=== PATIENT | female | born 1970 | race Caucasian/White ===

== ENCOUNTER 2020-10-31 16:54 | Inpatient (IN) | payer OTHER ==
--- OUTSIDE RECORDS SUMMARY | 2020-10-31 16:56 | XMS REPORT | Continuity of Care Document ---
:1970 Author Organization [facility] t Address [address] [place] [address] Care Team Providers Name Role Phone Doctor Unassigned, Name Attending Clinician Unavailable Payers Payer Name Policy Type Policy Number Effective Date Expiration Date S ource Problems This patient has no known problems. Allergies, Adverse Reactions, Alerts Allergy Allergy Status Severity Reaction(s) Onset Inactive Treating Comm ents Source Name Type Date Date Clinician No Known DA Active [facility] [place] [facility] No Known DA Active U 2012-0 [facility] 05-06 [place] [facility] Medications This patient has no known medications. Procedures This patient has no known procedures. Encounters Start End Encounter Admission Attending Care Care Encounter Source Date/Time Date/Time Type Type Clinicians Facility Department ID 2020-09-25 2020-09-25 Orders Doctor TORREZ [id number] 01 00:00:00 00:00:00 Only UnassignedRADHA [id number] Tulsita [facility] [id number] 2020-05-07 2020-05-07 Gaye [id number] 30 00:00:00 00:00:00 Only UnassignedRADHA [id number] [id number] Results Test Description Test Time Test Comments Results Result [facility] e Comments - XR FLUORO NDL 2018-08-21 Patient Name: 22:30:00 CECI NI Unit No: [id number] EXAMS: CPT CODE: [id number] XR FLUORO NDL 63788 FLUOROSCOPICALLY GUIDED LEFT SHOULDER INTRA-ARTICULAR STEROID INJECTION Comment: COMPARISON: No prior exams available. After informed consent was obtained a 25-gauge needle is inserted into the left shoulder joint under fluoroscopic control using sterile technique. 2 mL of Isovue-300 is instilled into the joint followed by 2 mL of Kenalog 40 mg/ml and 2 mL of lidocaine. The patient tolerated the procedure well. 0.5 minutes of fluoroscopy time was used on this exam. at 2230 Reported and signed by: Shelby Bradley MD CC: Flavio Torres MD Technologist: Oumou Bailey, RT.(R); NORMA WALLER RT(R) Transcribed D/ (2229) Jose RaulGVG [facility] NAME: CECI NI [address] [facility] PHYS: Flavio Connell MD : 1970 AGE: 47 SEX: F [place] [id number] LOC: Y.RAD PHONE #: [phone] EXAM DATE: 08/19/2018 STATUS: DEP CLI FAX #: [phone] RAD #: D/C DT PAGE 1 Signed Report Patient Name: CECI NI Unit No: [id number] EXAMS: CPT CODE: [id number] XR FLUORO NDL 32875 <Continued> Orig Print D/T: S: 08/21/2018 (702) [facility] NAME: CECI NI [address] [facility] PHYS: Flavio Connell MD : 1970 AGE: 47 SEX: F [place] [id number] LOC: Y.RAD PHONE #: [phone] EXAM DATE: 08/19/2018 STATUS: DEP CLI FAX #: [phone] RAD #: D/C DT PAGE 2 Signed Report
--- NOTE | 2020-10-31 18:03 | RAD REPORT ---
EXAM DESCRIPTION: RAD - Chest Single View - 10/31/2020 5:42 pm CLINICAL HISTORY: CHEST PAIN COMPARISON: Portable December 2016 TECHNIQUE: AP portable chest image was obtained 10/31/2020 5:42 pm . FINDINGS: Lungs are clear. Heart and vasculature are normal. No measurable pleural effusion and no p neumothorax. No acute bony abnormality seen. No acute aortic findings suspected. IMPRESSION: No acute cardiopulmonary process. No significant change from comparison study.
[2020-10-31 18:07] LABS: Absolute Lymphocytes (CBC) 0.4 K/uL (0.7-4.9); Basophils % 0.2 % (0-1.3); Hematocrit 30.1 % (36.0-45.0); Lymphocytes % 3.4 % (15.3-44.8); RBC Red Blood Cell Count 2.97 M/uL (3.86-4.86)
[2020-10-31] MEDS ORDERED: ACETAMINOPHEN 500 MG TAB ONE (18:15)
[2020-10-31] MEDS ORDERED: MAGNES/ALUMIN/SIMET 30ML UCUP ONE (18:15)
[2020-10-31] MEDS ORDERED: NA CHLORIDE 0.9% 2,000 ML ONE (18:16)
[2020-10-31] MEDS ORDERED: LIDOCAINE VISCOUS 2% SOLN 15 ML UDC ONE (18:16)
[2020-10-31 18:19] LABS: Protime INR 1.09
[2020-10-31 18:32] LABS: ALT/SGPT 702 U/L (12-78); Albumin 2.7 g/dL (3.4-5.0); Alkaline Phosphatase 149 U/L (45-117); Amylase 39 U/L (25-115); BUN Blood Urea Nitrogen 22 mg/dL (7-18); Bicarbonate 21 mmol/L (21-32); Bilirubin Direct 0.1 mg/dL (0-0.2); Bilirubin Total 0.3 mg/dL (0.2-1.0); CKMB Creatine Kinase MB < 1.0 ng/mL (1.0-3.6); Creatine Phosphokinase 56 U/L (26-192); Glucose Level 148 mg/dL (74-106); Lipase 31 U/L (73-393); Magnesium 1.9 mg/dL (1.8-2.4); NT PRO-BNP 1911 pg/mL (<125); Potassium 3.4 mmol/L (3.5-5.1); Protein, Total 6.2 g/dL (6.4-8.2); Sodium Level 138 mmol/L (136-145); Troponin (Emerg Dept Use Only) < 0.02 ng/mL (0.0-0.045)
[2020-10-31 18:36] LABS: AST/SGOT 907 U/L (15-37)
--- NOTE | 2020-10-31 19:39 | RAD REPORT ---
EXAM DESCRIPTION: CT - Chest Abdomen Pelvis W Cont - 10/31/2020 6:59 pm CLINICAL HISTORY: LFTs abnormal;Fever COMPARISON: No comparisons TECHNIQUE: Following dynamic enhancement using 100 milliliters nonionic IV contrast, axial imaging o f the chest, abdomen and pelvis was performed. Biphasic technique was utilized through the abdomen. No oral contrast administered. All CT scans are performed using dose optimization technique as appropriate and may include automated exposure control or mA/KV adjustment according to patient size. FINDINGS: Lungs are clear of mass and infiltrate. No pleural effusion, pleural thickening or pneumot horax. No significant aortic or pulmonary arterial tree finding. Mediastinal and hilar regions show n o mass or abnormal lymphadenopathy. No chest wall mass or axillary lymphadenopathy. The liver, spleen and pancreas show no suspicious findings. Gallbladder is mostly contracted. No acut e gallbladder finding seen. No biliary tree dilatation. Gallstones can be occult on CT imaging. No hydronephrosis or obstructing calculus. There is heterogeneous enhancement of the left renal paren chyma consistent with pyelonephritis. There is slight thickening and enhancement of the left ureter. No adrenal abnormalities. Urinary bladder is contracted which accentuates the wall thickness. This li mits ability to evaluate for cystitis. No gastric dilatation or gastric wall thickening. Multiple fluid-filled small bowel loops are present . Patient has a very large retained stool volume distending the entirety of the colon. The colon is t ortuous and redundant with the transverse colon low-lying along the pelvic floor. Appendix is not josiah isabel defined. Acute appendicitis is not suspected. No acute or destructive bony process. No significant vascular findings. IMPRESSION: Left-sided pyelonephritis and ureteritis. No abscess or other complicating factor. Urinary bladder is too contracted to allow all accurate assessment of possible cystitis. Constipation pattern with a large amount of stool filling and distending the entirety of the colon.
[2020-10-31] MEDS ORDERED: CEFEPIME/SWI 1gm 10 ML ONE (19:43)
[2020-10-31 19:44] LABS: Urine Bacteria 20-50 /HPF (<20); Urine Mucus 2+ /HPF (NONE SEEN)
[2020-10-31 20:08] LABS: Blood Morphology Comment NOT SEEN (NOT SEEN); Platelet Estimate ADEQ; White Blood Cell Scan OK (OK)
--- NOTE | 2020-10-31 20:25 | ER ---
Nurse's Notes [facility] Name: Cindy Lizarraga Age: 50 yrs Sex: Female : 1970 Arrival Date: 10/31/2020 Time: 17:02 Bed 3 Private MD: Diagnosis: Sepsis;Pyelonephritis;Dehydration Presentation: 10/31 17:02 Chief complaint: EMS states: Generalized weakness since yesterday, reports epigastric jl7 pain since yesterday, denies SOB, cough, denies N/V/D, denies burning with urination. Coronavirus screen: Client denies travel out of the [place] in the last 14 days. At this time, the client does not indicate any symptoms associated with coronavirus-19. Ebola Screen: No symptoms or risks identified at this time. Initial Sepsis Screen: Does the patient meet any 2 criteria? RR > 20 per min. Systolic BP < 90 mmHg. HR > 90 bpm. Yes Does the patient have a suspected source of infection? No. Patient's initial sepsis screen is negative. Risk Assessment: Do you want to hurt yourself or someone else? Patient reports no desire to harm self or others. Onset of symptoms was October 30, 2020. Care prior to arrival: Glucose check: 125. 17:02 Method Of Arrival: EMS: [facility] jl7 17:02 Acuity: RAQUEL 2 jl7 Triage Assessment: 17:05 General: Appears in no apparent distress. uncomfortable, Behavior is calm, cooperative, jl7 appropriate for age. Pain: Complains of pain in xiphoid area Pain radiates to mid-sternal area Pain currently is 9 out of 10 on a pain scale. Quality of pain is described as squeezing, Pain began 1 day ago. Is continuous. Neuro: Level of Consciousness is awake, alert, obeys commands, Oriented to person, place, time, situation. Cardiovascular: Patient's skin is warm and dry. Respiratory: Airway is patent Respiratory effort is even, unlabored, Respiratory pattern is regular, symmetrical. Derm: Skin is dry, Skin is pale, Skin temperature is warm. 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 - Social history:: Smoking status: Patient denies any tobacco usage or history of. Screenin:30 Abuse screen: Denies threats or abuse. Denies injuries from another. Nutritional jl7 screening: No deficits noted. Tuberculosis screening: No symptoms or risk factors identified. Fall Risk IV access (20 points). Gait- Weak (10 pts.). Mental Status- Oriented to own ability (0 pts). Total Bardales Fall Scale indicates Low Risk Score (25-44 pts). Fall prevention measures have been instituted. Side Rails Up X 2 Placed close to Nursing Station Frequent Obs/Assesments occuring Family Present and informed to notify staff if they need to leave bedside As available Patient and Family Educated on Fall Prevention Program and strategies. Assessment: 17:05 General: See triage assessment. jl7 18:00 Reassessment: Patient appears in no apparent distress at this time. No changes from jl7 previously documented assessment. Patient and/or family updated on plan of care and expected duration. Pain level reassessed. Patient is alert, oriented x 3, equal unlabored respirations, skin warm/dry/pink. 19:22 Reassessment: Patient appears in no apparent distress at this time. Patient and/or ad5 family updated on plan of care and expected duration. Pain level reassessed. Neuro: Level of Consciousness is awake, alert, obeys commands, Oriented to person, place, time, situation, Appropriate for age. Cardiovascular: No deficits noted. Capillary refill < 3 seconds Patient's skin is warm and dry. appears pale. Respiratory: No deficits noted. Airway is patent Respiratory effort is even, unlabored, Respiratory pattern is regular, symmetrical. 20:30 Reassessment: Patient appears in no apparent distress at this time. No changes from ad5 previously documented assessment. Patient and/or family updated on plan of care and expected duration. Pain level reassessed. 21:30 Reassessment: Pt assisted on and off of bedpan, repositioned back into stretcher for ad5 comfort. Pt family remains at bedside. Pt given food and po liquids per request. Denies other needs or c/o at this time. NAD noted, will continue to monitor. Vital Signs: 17:02 BP 87 / 53; Pulse 100; Resp 23; Temp 100.4; Pulse Ox 100% ; Weight 57.15 kg; Height 5 bb ft. 2 in. (157.48 cm) (R); Pain 8/10; 18:07 BP 86 / 53; Pulse 99; Resp 15; Pulse Ox 100% ; jl7 19:18 BP 98 / 64; Pulse 102; Resp 19 S; Pulse Ox 99% on R/A; ad5 21:11 BP 99 / 62; Pulse 96; Resp 20 S; Pulse Ox 97% on R/A; ad5 17:02 Body Mass Index 23.04 (57.15 kg, 157.48 cm) bb ED Course: 17:02 Patient arrived in ED. jl7 17:03 Mihir Eubanks MD is Attending Physician. kdr 17:05 Arm band placed on right wrist. jl7 17:05 Patient has correct armband on for positive identification. Placed in gown. Bed in low jl7 position. Call light in reach. Side rails up X2. vet assistant on. Pulse ox on. NIBP on. 17:07 Triage completed. jl7 17:35 Initial lab(s) drawn, by ia, sent to lab. First set of blood cultures drawn by me. jl7 17:35 Missed attempt(s): 22 gauge in left forearm. jl7 17:42 XRAY Chest (1 view) In Process Unspecified. EDMS 17:48 Inserted saline lock: 22 gauge in right forearm, using aseptic technique. Blood jl7 collected. 17:48 Second set of blood cultures drawn by me. jl7 18:03 Matthieu Connolly, YA is Primary Nurse. jl7 18:59 CT Chest, Abdomen, Pelvis - W/Contrast In Process Unspecified. EDMS 19:02 Attending Physician role handed off by Mihir Eubanks MD 7 19:02 Kevin Diaz MD is Attending Physician. 7 20:24 Cesia Vargas MD is Hospitalizing Provider. 7 22:01 No provider procedures requiring assistance completed. Patient admitted, IV remains in ea place. 11/01 06:21 Primary Nurse role handed off by Matthieu Connolly RN tt3 09:44 Sahra Tripathi, RN is Primary Nurse. kg Administered Medications: 10/31 18:08 Drug: NS 0.9% (30 ml/kg) 30 ml/kg Route: IV; Rate: bolus; Site: right forearm; jl7 21:10 Follow up: IV Status: Completed infusion ad5 18:10 Drug: Tylenol 1000 mg Route: PO; jl7 19:30 Follow up: Response: No adverse reaction ea 19:40 Drug: Cefepime 1 grams Route: IVPB; Rate: 200 ml/hr; Infused Over: 30 mins; Site: right ad5 forearm; 20:34 Follow up: Response: No adverse reaction; IV Status: Completed infusion; IV Intake: ad5 1700ml 20:53 Drug: NS 0.9% 1000 ml Route: IV; Rate: 1000 ml; Site: right forearm; ea Intake: 20:34 IV: 1700ml; Total: 1700ml. ad5 Outcome: 20:24 Decision to Hospitalize by Provider. [facility] 22:02 Admitted to [facility] Hold. [facility] ea 22:02 Condition: stable 22:02 Instructed on the need for admit, Demonstrated understanding of instructions. 11/01 14:12 Patient left the ED. kg Signatures: Dispatcher [employer] EDMS Mihir Eubanks MD MD kdr Ballard, Brenda, RN RN bb Leal, Jahala, RN RN jl7 Antunez, Elena, RN RN ea Holmes, Maurice, MD MD [facility] Jorge Moran tt3 Sahra Tripathi RN RN kg Filipe Chisholm ad5 Corrections: (The following items were deleted from the chart) 10/31 18:07 17:05 Inserted saline lock: 22 gauge in right forearm, using aseptic technique. Blood Evie collected. Evie 18: 17:05 Initial lab(s) drawn, by ia, sent to lab. nelida jlEvie 22:25 17:02 BP 87 / 53; Pulse 100bpm; Resp 23bpm; Pulse Ox 100%; Temp 100.4F; 57.15 kg; Pain bb 810; jlEvie
--- NOTE | 2020-10-31 20:25 | EDPHYS ---
Physician Documentation [facility] Name: Cindy Lizarraga Age: 50 yrs Sex: Female : 1970 Arrival Date: 10/31/2020 Time: 17:02 Bed 3 Private MD: ED Physician Kevin Diaz HPI: 10/31 18:19 This 50 yrs old Female presents to ER via EMS with complaints of General kdr Weakness. 18:19 The patient had shaking chills several times yesterday and today. This was accompanied kdr by generalized weakness and several times, the patient was eased to the floor due to weakness. She now c/o ESCOBEDO and pain epigastric chest pain which was partially relieved by Pepto-Bismal ASSISTANT SURVEYOR. She has not had this before and states that her pain on admission is 8-9/10 both ESCOBEDO and chest pain. CP is sub xyphoid and ESCOBEDO is frontal. 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 - Social history:: Smoking status: Patient denies any tobacco usage or history of. ROS: 19:49 Eyes: Negative for injury, pain, redness, and discharge, ENT: Negative for injury, mh7 pain, and discharge, Neck: Negative for injury, pain, and swelling, Respiratory: Negative for shortness of breath, cough, wheezing, and pleuritic chest pain. 19:50 : Negative for injury, bleeding, discharge, and swelling, MS/Extremity: Negative for mh7 injury and deformity, Skin: Negative for injury, rash, and discoloration, Psych: Negative for depression, anxiety, suicide ideation, homicidal ideation, and hallucinations, Allergy/Immunology: Negative for hives, rash, and allergies, Endocrine: Negative for neck swelling, polydipsia, polyuria, polyphagia, and marked weight changes, Hematologic/Lymphatic: Negative for swollen nodes, abnormal bleeding, and unusual bruising. 19:50 Back: Positive for flank pain, on the left. Exam: 19:50 Head/Face: Normocephalic, atraumatic. mh7 19:50 Neck: Trachea midline, no thyromegaly or masses palpated, and no cervical lymphadenopathy. Supple, full range of motion without nuchal rigidity, or vertebral point tenderness. No Meningismus. Chest/axilla: Normal chest wall appearance and motion. Nontender with no deformity. No lesions are appreciated. Cardiovascular: Regular rate and rhythm with a normal S1 and S2. No gallops, murmurs, or rubs. Normal PMI, no JVD. No pulse deficits. Respiratory: Lungs have equal breath sounds bilaterally, clear to auscultation and percussion. No rales, rhonchi or wheezes noted. No increased work of breathing, no retractions or nasal flaring. Abdomen/GI: Soft, non-tender, with normal bowel sounds. No distension or tympany. No guarding or rebound. No evidence of tenderness throughout. 19:50 Skin: Warm, dry with normal turgor. Normal color with no rashes, no lesions, and no evidence of cellulitis. MS/ Extremity: Pulses equal, no cyanosis. Neurovascular intact. Full, normal range of motion. Psych: Awake, alert, with orientation to person, place and time. Behavior, mood, and affect are within normal limits. 19:50 Constitutional: The patient appears in no acute distress, alert, awake, obviously ill. 19:50 Eyes: Periorbital structures: appear normal, Pupils: equal, round, and reactive to light and accomodation, Extraocular movements: intact throughout, Conjunctiva: pale, bilaterally, Sclera: no appreciated abnormality. 19:50 Back: ROM is normal, normal spinal alignment noted, CVA tenderness, that is moderate, is noted on the left, vertebral tenderness, is not appreciated, muscle spasm, is not present. 19:50 Neuro: Orientation: is normal, Mentation: is normal, Memory: is normal, immediate memory is intact, recent memory is intact, remote memory is intact, Cranial nerves: grossly normal, Cerebellar function: is grossly normal, Motor: is normal, Sensation: is normal, Gait: not tested. seizure activity, is not displayed by the patient, Abnormal movements: there are no abnormal movements. Vital Signs: 17:02 BP 87 / 53; Pulse 100; Resp 23; Temp 100.4; Pulse Ox 100% ; Weight 57.15 kg; Height 5 bb ft. 2 in. (157.48 cm) (R); Pain 8/10; 18:07 BP 86 / 53; Pulse 99; Resp 15; Pulse Ox 100% ; jl7 19:18 BP 98 / 64; Pulse 102; Resp 19 S; Pulse Ox 99% on R/A; ad5 21:11 BP 99 / 62; Pulse 96; Resp 20 S; Pulse Ox 97% on R/A; ad5 17:02 Body Mass Index 23.04 (57.15 kg, 157.48 cm) bb MDM: 20:23 Differential Diagnosis altered mental status, sepsis, flu. Data reviewed: vital signs, [facility] nurses notes, lab test result(s), cardiac enzymes, CBC, electrolytes, EKG, radiologic studies, CT scan, plain films. Data interpreted: Pulse oximetry: on room air is 99 %. Interpretation: normal. Counseling: I had a detailed discussion with the patient and/or guardian regarding: the historical points, exam findings, and any diagnostic results supporting the discharge/admit diagnosis, lab results, radiology results, the need for outpatient follow up, the need for further work-up and treatment in the hospital. Response to treatment: the patient's symptoms have markedly improved after treatment. 20:24 Patient medically screened. [facility] 10/31 17:03 Order name: Basic Metabolic Panel [facility] 10/31 17:03 Order name: CBC with Diff kdr 10/31 17:03 Order name: LFT's kdr 10/31 17:03 Order name: Magnesium; Complete Time: 18:39 kdr 10/31 17:03 Order name: NT PRO-BNP; Complete Time: 18:39 kdr 10/31 17:03 Order name: PT-INR; Complete Time: 18:39 kdr 10/31 17:03 Order name: Troponin (emerg Dept Use Only); Complete Time: 18:39 kdr 10/31 17:04 Order name: Basic Metabolic Panel; Complete Time: 18:39 EDMS 10/31 17:04 Order name: CBC with Automated Diff EDMS 10/31 17:04 Order name: Liver (Hepatic) Function; Complete Time: 18:39 [facility] 10/31 17:30 Order name: Amylase, Serum; Complete Time: 18:[address] [facility] 10/31 17:30 Order name: Blood Culture Adult (2) [facility] 10/31 17:30 Order name: CPK; Complete Time: 18:[address] [facility] 10/31 17:30 Order name: Ckmb; Complete Time: 18:[address] [facility] 10/31 17:30 Order name: Lactate; Complete Time: 18:[address] [facility] 10/31 17:30 Order name: Lipase; Complete Time: 18:[address] [facility] 10/31 17:30 Order name: Procalcitonin; Complete Time: 18:[address] [facility] 10/31 17:30 Order name: Urine Microscopic Only [facility] 10/31 18:13 Order name: PTT, Activated Partial Thromb; Complete Time: 18:39 [facility] 10/31 19:45 Order name: Urine Culture [facility] 10/31 20:08 Order name: CBC Smear Scan [facility] 10/31 20:41 Order name: SARS-COV-2 RT PCR [facility] 10/31 21:16 Order name: Lactate Sepsis 2 HR Follow-up [facility] 10/31 22:04 Order name: Folic Acid, (Folate) [facility] 10/31 22:04 Order name: Hemoglobin A1c [facility] 10/31 22:04 Order name: Vitamin B12 Level [facility] 10/31 22:04 Order name: C-Reactive Protein [facility] 10/31 22:05 Order name: Urinalysis [facility] 10/31 17:03 Order name: XRAY Chest (1 view); Complete Time: 18:[address] [facility] 10/31 17:03 Order name: EKG; Complete Time: 17:[address] [facility] 10/31 17:03 Order name: Cardiac monitoring; Complete Time: 18:[address] [facility] 10/31 17:03 Order name: EKG - Nurse/Tech; Complete Time: 19:[address] [facility] 10/31 18:42 Order name: CT Chest, Abdomen, Pelvis - W/Contrast; Complete Time: 19:[address] [facility] 10/31 21:23 Order name: CONS Physician Consult [facility] 10/31 21:56 Order name: Regular [facility] 10/31 22:05 Order name: Abdomen Exam Limited [facility] 10/31 22:05 Order name: CBC with Automated Diff [facility] 10/31 22:05 Order name: CBC with Automated Diff [facility] 10/31 22:05 Order name: Comprehensive Metabolic Panel EDMS 10/31 22:05 Order name: Comprehensive Metabolic Panel EDMS 10/31 22:05 Order name: Lipid Profile EDMS 10/31 22:05 Order name: Lipid Profile EDMS 10/31 22:05 Order name: Magnesium EDMS 10/31 22:05 Order name: Magnesium EDMS 10/31 22:05 Order name: Phosphorus EDMS 10/31 22:05 Order name: Phosphorus EDMS 10/31 22:05 Order name: T4 Free EDMS 10/31 22:05 Order name: T4 Free EDMS 10/31 22:05 Order name: Thyroid Stimulating Hormone EDMS 10/31 22:05 Order name: Thyroid Stimulating Hormone EDMS 11/01 02:58 Order name: Acetaminophen Level EDMS 11/01 08:25 Order name: Manual Differential EDMS 11/01 08:57 Order name: Hemoglobin EDMS 11/01 08:57 Order name: Hematocrit EDMS 11/01 10:13 Order name: Type and Screen EDMS 11/01 10:19 Order name: ABO/RH no charge EDMS 10/31 17:03 Order name: IV Saline Lock; Complete Time: 18:08 kdr 10/31 17:03 Order name: Labs collected and sent; Complete Time: 18:08 kdr 10/31 17:03 Order name: O2 Per Protocol; Complete Time: 18:08 kdr 10/31 17:03 Order name: O2 Sat Monitoring; Complete Time: 18:08 kdr 10/31 17:30 Order name: IV Saline Lock - Large Bore; Complete Time: 18:08 kdr Administered Medications: 18:08 Drug: NS 0.9% (30 ml/kg) 30 ml/kg Route: IV; Rate: bolus; Site: right forearm; jl7 21:10 Follow up: IV Status: Completed infusion ad5 18:10 Drug: Tylenol 1000 mg Route: PO; jl7 19:30 Follow up: Response: No adverse reaction ea 19:40 Drug: Cefepime 1 grams Route: IVPB; Rate: 200 ml/hr; Infused Over: 30 mins; Site: right ad5 forearm; 20:34 Follow up: Response: No adverse reaction; IV Status: Completed infusion; IV Intake: ad5 1700ml 20:53 Drug: NS 0.9% 1000 ml Route: IV; Rate: 1000 ml; Site: right forearm; ea Disposition Summary: 10/31/20 20:24 Hospitalization Ordered Hospitalization Status: Inpatient Admission [facility] Provider: Cesia Vargas Condition: Stable [facility] Problem: new mh7 Symptoms: have improved mh7 Bed/Room Type: Standard [facility] Location: Telemetry/MedSurg (Inpatient)(11/01/20 12:41) dw Room Assignment: [facility](11/01/20 12:41) dw Diagnosis - Sepsis mh7 - Pyelonephritis mh7 - Dehydration [facility] Forms: - Medication Reconciliation Form 7 - SBAR form [facility] Signatures: Dispatcher [employer] EDMS Mary Reed RN RN Mihir Grace MD MD kdr Ballard, Brenda RN RN Matthieu Sullivan RN RN jl7 Antunez, Elena, RN RN ea Holmes, Maurice, MD MD 7 Trim, Jorge tt3 Filipe Chisholm Corrections: (The following items were deleted from the chart) 18:13 17:31 PTT, ACTIVATED+COAG.LAB.BRZ ordered. EDMS EDMS 19:49 18:37 CORONAVIRUS+MR.LAB.BRZ ordered. EDMS EDMS 23:28 20:24 Telemetry/MedSurg (Inpatient) mh7 bb 23:28 20:24 mh7 bb 23:29 23:28 [facility] ER HOLD bb tt3 23:29 23:28 ERHOLD- bb tt3 11/01 12:41 10/31 23:29 [facility] ER HOLD tt3 dw 11/01 12:41 10/31 23:29 ERHOLD- tt3 dw
[2020-10-31] MEDS ORDERED: NA CHLORIDE 0.9% 1,000 ML ONE (20:59)
--- NOTE | 2020-10-31 21:40 | P.INFCA ---
Sepsis Focused Assessment - Focused Assessment Complete? Sepsis Focused Assessment Completed?: Yes - Sepsis Screen Result Severe Sepsis: Positive - Evaluation Current stage of sepsis: Severe sepsis - Vital Signs Reviewed: Yes Temperature: 99 F Respiratory Rate: 20 O2 Sat by Pulse Oximetry: 94 - Examination Date exam was performed: 11/01/20 Time exam was performed: 04:00 Heart: Regular rate/rhythm Lungs: Clear bilaterally Peripheral pulses: 2+ Slightly diminished Peripheral pulse location: Radial Capillary refill: >2 Seconds Skin examination: Unremarkable Comments: Agree with plan of care as mentioned above
[2020-10-31] MEDS ORDERED: KCL 20 MEQ/100 mL IVPB 20 MEQ/100 ML BAG IV SCH (22:04)
[2020-10-31] MEDS ORDERED: NA CHLORIDE 0.9% 500 ML IV ONE (22:04)
[2020-10-31] MEDS: NA CHLORIDE 0.9% 1,000 ML IV SCH (22:04)
[2020-10-31] MEDS ORDERED: Pharmacy Consult 1 EA XX PRN (22:04)
[2020-10-31] MEDS ORDERED: ONDANSETRON 4 MG/2 ML VIAL IV PRN (22:04)
[2020-10-31] MEDS ORDERED: ACETAMINOPHEN 500 MG TAB PO PRN (22:04)
[2020-10-31] MEDS: MORPHINE 2 MG/ML SYR IV PRN (22:15)
[2020-10-31] MEDS ORDERED: NA CHLORIDE 0.9% 500 ML ONE (22:29)
[2020-10-31] MEDS ORDERED: VANCOMYCIN 1.5 GM in NA CHLORIDE 0.9% 500 ML IVPB ONE (23:00)
--- NOTE | 2020-11-01 00:31 | P.HP ---
Certification for Inpatient Patient admitted to: Inpatient With expected LOS: >2 Midnights Patient will require the following post-hospital care: None Practitioner: I am a practitioner with admitting privileges, knowledge of patient current condition, hospital course, and medical plan of care. Services: Services provided to patient in accordance with Admission requirements found in Title 42 Section 412.3 of the Code of Federal Regulations <Tom Pelayo - Last Filed: 11/01/20 00:32> Patient History Date of Service: 10/31/20 Primary Care Provider: Clark Reason for admission: pyelonephritis History of Present Illness: Ms. Lizarraga is a 50 yo F with HTN here today for sharp left flank pain, night swe ats and chills for the past fw days. Denies frequency, urgency, dysuria, hematuria, nausea and vomiting. Flagging sepsis. CT scan shows left sided pyelonephritis and ureteritis. WBC 12.5. H/H 10.1, MCV 101.5. K 3.4. BUN 22, Cr 1.4, GFR 40. Glu 148. Lactate 1.0. AST 907, ALT 702, alk phos 149. BNP 1911. Procal 1.46. - Past Medical/Surgical History -: Hypertension -: Seizures -: Hysterectomy - Family History Mother -: Hypertension, Other (see notes) Notes: dementia Father -: Cancer - Social History Smoking Status: Never smoker Alcohol use: No CD- Drugs: No Place of Residence: Home <Tom Pelayo - Last Filed: 11/01/20 00:32> Date of Service: 10/31/20 <Cesia Vargas - Last Filed: 11/02/20 02:38> Allergies No Known Allergies Allergy (Uncoded 10/31/20 22:45) Unknown Home Medications: Alprazolam [Xanax] 1 mg PO QID 10/31/20 Amitriptyline HCl 50 mg PO BEDTIME 10/31/20 Atorvastatin Calcium 10 mg PO DAILY 10/31/20 Butalb/Acetaminophen/Caffeine [Xlbngl-Mgsgujyf-Xpyl 50-325-40] 1 each PO TID 10/31/20 Divalproex Sodium 500 mg PO DAILY 10/31/20 LIDOCAINE 2% JELLY, 5mL [Xylocaine 2% Jelly*] 1 applic PRN 10/31/20 Lisinopril [Zestril] 10 mg PO DAILY 10/31/20 Propranolol HCl [Propranolol HCl ER] 80 mg PO DAILY 10/31/20 Tizanidine HCl 2 mg PO TID 10/31/20 Tramadol HCl [Ultram] 50 mg PO Q4H PRN 10/31/20 Review of Systems General: Chills, Sweats Gastrointestinal: Abdominal Pain <Tom Pelayo - Last Filed: 11/01/20 00:32> Physical Examination - Vital Signs Temperature: 99.0 F Blood Pressure: 99/65 Pulse: 95 Respirations: 17 Pulse Ox (%): 99 - Physical Exam General: Alert, In no apparent distress HEENT: Atraumatic, PERRLA, Mucous membr. moist/pink, EOMI, Sclerae nonicteric Neck: Supple, 2+ carotid pulse no bruit, No LAD, Without JVD or thyroid abnormality Respiratory: Clear to auscultation bilaterally, Normal air movement Cardiovascular: Regular rate/rhythm, Normal S1 S2 Gastrointestinal: Normal bowel sounds, Tenderness Musculoskeletal: No tenderness Integumentary: No rashes Neurological: Normal speech, Normal strength at 5/5 x4 extr, Normal tone, Normal affect Lymphatics: No axilla or inguinal lymphadenopathy - Studies Laboratory Data (last 24 hrs) 10/31/20 17:48: APTT Cancelled 10/31/20 17:48: Amylase 39, Lipase 31 L 10/31/20 17:48: PT 12.5, INR 1.09, APTT 28.7 10/31/20 17:48: WBC 12.50 H, Hgb 10.2 L, Hct 30.1 L, Plt Count 207 10/31/20 17:48: Sodium 138, Potassium 3.4 L, BUN 22 H, Creatinine 1.40 H, Glucose 148 H, Magnesium 1.9, Total Bilirubin 0.3, AST 907 H*, ALT 702 H*, Alkaline Phosphatase 149 H <Tom Pelayo - Last Filed: 11/01/20 00:32> - Studies Microbiology Data (last 24 hrs): 10/31/20 17:35 Blood - Blood Anaerobic Blood Culture - Final <Cesia Vargas - Last Filed: 11/02/20 02:38> Assessment and Plan - Problems (Diagnosis) (1) Pyelonephritis Current Visit: Yes Status: Acute (2) Anemia Current Visit: Yes Status: Chronic Qualifiers: Anemia type: unspecified type Qualified Code(s): D64.9 - Anemia, unspecified (3) ANEL (acute kidney injury) Current Visit: Yes Status: Acute (4) Transaminitis Current Visit: Yes Status: Acute - Plan continue IVF hydration, continue to monitor blood pressure continue IV vancomycin and cefepime repeat CMP in the AM, will consult GI for transaminitis, CT A/P and RUQ US of the liver wnl anemia workup pending pain management as needed potassium replacement protocol DVT ppx Discharge Plan: Home Plan to discharge in: 72 Hours - Advance Directives Does patient have a Living Will: No Does patient have a Durable POA for Healthcare: No - Code Status/Comfort Care Code Status Assessed: Yes (full code ) Critical Care: No Time Spent Managing Pts Care (In Minutes): 70 <Tom Pelayo - Last Filed: 11/01/20 00:32> Date of Service: 10/31/20 Patient's clinical symptoms are improving this morning. Repeat H&H was not as low as a.m. testing. LFTs are elevated so will continue to monitor. Hold off on statin therapy. Continue with IV antibiotic therapy along with IV hydration <Cesia Vargas - Last Filed: 11/02/20 02:38>
[2020-11-01] MEDS ORDERED: VANCOMYCIN 1 GM/VIAL ONE (00:56)
[2020-11-01] MEDS ORDERED: NA CHLORIDE 0.9% 250 ML ONE (00:56)
[2020-11-01] MEDS: ALPRAZOLAM 1 MG TABLET PO PRN (02:45)
[2020-11-01] MEDS: MORPHINE 2 MG/ML SYR IV PRN ×4 (02:45→20:53)
[2020-11-01] MEDS ORDERED: MORPHINE 2 MG/ML SYR ONE ×2 (02:59→09:48)
[2020-11-01] MEDS ORDERED: ALPRAZOLAM 1 MG TABLET ONE (03:00)
[2020-11-01 03:26] LABS: Folic Acid, (Folate) > 20.0 ng/mL (3.1-17.5)
[2020-11-01] MEDS ORDERED: NA CHLORIDE 0.9% 1,000 ML ONE (04:00)
[2020-11-01] MEDS: NA CHLORIDE 0.9% 1,000 ML IV SCH ×3 (05:27→22:04)
[2020-11-01 06:19] LABS: Absolute Lymphocytes (CBC) 0.6 K/uL (0.7-4.9); Basophils % 0.1 % (0-1.3); MPV 8.3 fL (7.6-11.3); RBC Red Blood Cell Count 1.49 M/uL (3.86-4.86)
[2020-11-01 06:56] LABS: Albumin 2.4 g/dL (3.4-5.0); Bilirubin Total 0.4 mg/dL (0.2-1.0); Magnesium 1.9 mg/dL (1.8-2.4); Phosphorus 1.7 mg/dL (2.5-4.9); Potassium 3.6 mmol/L (3.5-5.1); Protein, Total 5.7 g/dL (6.4-8.2); Thyroid Stimulating Hormone 0.311 uIU/mL (0.360-3.740)
[2020-11-01 06:59] LABS: Hematocrit 14.9 % (36.0-45.0)
[2020-11-01 08:24] LABS: Blood Morphology Comment NOTED (NOT SEEN); Dohle Bodies PRESENT; Macrocytosis 1+; Platelet Estimate ADEQ; Platelets, Giant NOTED
[2020-11-01 08:56] LABS: Hematocrit 23.9 % (36.0-45.0)
[2020-11-01] MEDS: ENOXAPARIN 40 MG/0.4 ML SQ SCH (09:00)
[2020-11-01] MEDS: DIVALPROEX DR 500MG TAB PO SCH (09:00)
[2020-11-01] MEDS ORDERED: ACETAMINOPHEN 500 MG TAB PO ONE (09:11)
[2020-11-01] MEDS ORDERED: MINERAL OIL 30 ML UCUP PO ONE (09:11)
[2020-11-01] MEDS ORDERED: DIVALPROEX DR 250 MG TAB PO ONE (09:47)
[2020-11-01] MEDS ORDERED: ENOXAPARIN 40 MG/0.4 ML SQ ONE (09:48)
[2020-11-01] MEDS ORDERED: ACETAMINOPHEN 500 MG TAB ONE (10:32)
--- NOTE | 2020-11-01 11:16 | RAD REPORT ---
EXAM DESCRIPTION: US - Abdomen Exam Limited - 10/31/2020 10:43 pm ADDENDUM #1 Clinical history: Abnormal LFTs, fever, epigastric pain Electronically signed by: Mook Hicks MD 11/01/2020 4:40 AM CDT End of Addendum EXAM DESCRIPTION: Abdomen Exam Limited CLINICAL HISTORY: 50 years Female, RUQ US COMPARISON: None. TECHNIQUE: Sonographic imaging of the right upper quadrant was performed. FINDINGS: Liver measures 15.5 cm longitudinally and demonstrates homogenous echogenicity. Normal dir ectional flow in the main portal vein is demonstrated. Gallbladder appears unremarkable. No evidence of gallstones or gallbladder wall thickening. Common bi le duct measures 3 mm in width and is normal. Visualized pancreas appears unremarkable. Right kidney measures 10 cm x 4.9 cm x 4.6 cm. No evidence of right-sided hydronephrosis or renal sto precious. IMPRESSION: Unremarkable right upper quadrant ultrasound. Electronically signed by: Mook Hicks MD 10/31/2020 11:04 PM CDT Due to temporary technical issues with the PACS/Fluency reporting system, reports are being signed by the in house radiologist without review as a courtesy to ensure prompt reporting. The interpreting r adiologist is fully responsible for the content of the report.
--- NOTE | 2020-11-01 11:43 | EKG ---
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
[2020-11-01 14:25] VITALS: BMI 25.0
[2020-11-01 15:47] LABS: Urine Appearance CLEAR (Clear); Urine Bilirubin NEGATIVE (Negative); Urine Blood TRACE (Negative); Urine Color YELLOW (Yellow); Urine Glucose NEGATIVE (Negative); Urine Protein 1+ (Negative)
[2020-11-01 15:55] LABS: Urine Microscopic Reflex ORDER UMIC
[2020-11-01 15:57] LABS: Barbiturates POSITIVE (NEGATIVE); Benzodiazepines POSITIVE (NEGATIVE); Cocaine NEGATIVE (NEGATIVE); METHAMPHETAM NEGATIVE (NEGATIVE); Methadone NEGATIVE (NEGATIVE); Opiates POSITIVE (NEGATIVE); Phencyclidine NEGATIVE (NEGATIVE); THC Cannibis NEGATIVE (NEGATIVE)
[2020-11-01 17:16] LABS: Urine Amorphous Sediment 1+ /HPF (NONE SEEN); Urine Bacteria 20-50 /HPF (<20); Urine RBC <5 /HPF (NONE SEEN)
[2020-11-01] MEDS ORDERED: VANCOMYCIN/NS 1 gm 1 GM/250 ML BAG IVPB SCH (18:00)
[2020-11-01] MEDS: ACETAMINOPHEN 500 MG TAB PO PRN (20:22)
[2020-11-01] MEDS: AMITRIPTYLINE 50 MG TAB PO SCH (20:22)
[2020-11-01] MEDS: CEFEPIME 2 GM VIAL IV SCH (23:04)
[2020-11-01] MEDS ORDERED: CEFEPIME 2 GM VIAL ONE (23:09)
[2020-11-02] MEDS ORDERED: FENTANYL CITR 100 MCG/2 ML IV ONE (00:29)
[2020-11-02 01:39] LABS: Arterial Blood Carboxyhemoglob 0.9 % (0-1.5); Blood Gas Oxyhemoglobin 71.2 % (94-97); Blood O2 Saturation 72.6 % (92-98.5)
[2020-11-02] MEDS: NA CHLORIDE 0.9% 1,000 ML IV SCH ×3 (02:19→12:38)
[2020-11-02] MEDS ORDERED: METOPROLOL TARTRATE 5 MG/5 ML INJ IV PRN (02:31)
--- NOTE | 2020-11-02 02:45 | P.PN ---
Subjective Date of Service: 11/01/20 Patient's clinical symptoms are improving. Patient's LFTs are much improved. Vital signs are stable. Resume beta-vinod therapy. Monitor hemodynamics closely. Hemoglobin is stable Review of Systems 10-point ROS is otherwise unremarkable Physical Examination - Vital Signs Temperature: 99 F Blood Pressure: 161/81 Pulse: 129 Respirations: 20 Pulse Ox (%): 94 - Physical Exam General: Alert, In no apparent distress, Oriented x3 Respiratory: Clear to auscultation bilaterally, Normal air movement Cardiovascular: Regular rate/rhythm, Normal S1 S2 Gastrointestinal: Normal bowel sounds, Soft and benign, Non-distended, No tenderness Musculoskeletal: No clubbing, No swelling, No tenderness Neurological: Sensation intact, Cranial nerves 3-12 intact - Studies Microbiology Data (last 24 hrs): 10/31/20 17:35 Blood - Blood Anaerobic Blood Culture - Final Medications List Reviewed: Yes Assessment & Plan - Problems (Diagnosis) (1) Pyelonephritis Current Visit: Yes Status: Acute (2) Elevated liver function tests Current Visit: Yes Status: Acute (3) ANEL (acute kidney injury) Current Visit: Yes Status: Acute (4) Anemia Current Visit: Yes Status: Chronic Qualifiers: Anemia type: unspecified type Qualified Code(s): D64.9 - Anemia, unspecified (5) Severe sepsis Current Visit: Yes Status: Acute (6) UTI (urinary tract infection) Current Visit: Yes Status: Acute - Plan Plan: 1. Continue with IV fluids 2. IV antibiotic therapy 3. Monitor LFTs 4. Awaiting urine cultures 5. Continue medications for strict blood pressure control 6. Continue with anti epileptics 7. Discharge Plan: Home Plan to discharge in: Greater than 2 days - Advance Directives Does patient have a Living Will: No Does patient have a Durable POA for Healthcare: No - Code Status/Comfort Care Code Status Assessed: Yes Code Status: Full Code Critical Care: No Time Spent Managing PTS Care (In Minutes): 35
[2020-11-02] MEDS: ALPRAZOLAM 1 MG TABLET PO PRN ×3 (03:28→22:58)
--- NOTE | 2020-11-02 06:09 | P.PN ---
Subjective Date of Service: 11/02/20 Primary Care Provider: Dr. Clark Chief Complaint: pyelonephritis Subjective: Improving, Doing well Physical Examination - Vital Signs Temperature: 97.0 F Blood Pressure: 125/80 Pulse: 105 Respirations: 20 Pulse Ox (%): 98 - Studies Microbiology Data (last 24 hrs): 10/31/20 17:35 Blood - Blood Anaerobic Blood Culture - Final Medications List Reviewed: Yes Assessment & Plan Discharge Plan: Home Plan to discharge in: 48 Hours Physician Review Additional Text: ABUS: COMPARISON: None. TECHNIQUE: Sonographic imaging of the right upper quadrant was performed. FINDINGS: Liver measures 15.5 cm longitudinally and demonstrates homogenous echogenicity. Normal directional flow in the main portal vein is demonstrated. Gallbladder appears unremarkable. No evidence of gallstones or gallbladder wall thickening. Common bile duct measures 3 mm in width and is normal. Visualized pancreas appears unremarkable. Right kidney measures 10 cm x 4.9 cm x 4.6 cm. No evidence of right-sided hydronephrosis or renal stones. IMPRESSION: Unremarkable right upper quadrant ultrasound. CT scan: FINDINGS: Lungs are clear of mass and infiltrate. No pleural effusion, pleural thickening or pneumothorax. No significant aortic or pulmonary arterial tree fin ding. Mediastinal and hilar regions show no mass or abnormal lymphadenopathy. No chest wall mass or axillary lymphadenopathy. The liver, spleen and pancreas show no suspicious findings. Gallbladder is mostly contracted. No acute gallbladder finding seen. No biliary tree dilatation. Gallstones can be occult on CT imaging. No hydronephrosis or obstructing calculus. There is heterogeneous enhancement of the left renal parenchyma consistent with pyelonephritis. There is slight thickening and enhancement of the left ureter. No adrenal abnormalities. Urinary bladder is contracted which accentuates the wall thickness. This limits ability to evaluate for cystitis. No gastric dilatation or gastric wall thickening. Multiple fluid-filled small bowel loops are present. Patient has a very large retained stool volume distending the entirety of the colon. The colon is tortuous and redundant with the transverse colon low-lying along the pelvic floor. Appendix is not clearly defined. Acute appendicitis is not suspected. No acute or destructive bony process. No significant vascular findings. IMPRESSION: Left-sided pyelonephritis and ureteritis. No abscess or other complicating factor. Urinary bladder is too contracted to allow all accurate assessment of possible cystitis. Constipation pattern with a large amount of stool filling and distending the entirety of the colon. CXR: COMPARISON: Chest Single View dated 10/31/2020; Chest Single View dated 01/02/2017; Chest Abdomen Pelvis W Cont dated 10/31/2020 FINDINGS: Increased prominence the pulmonary vasculature. The heart size is within normal limits.No acute osseous abnormality. No significant pleural effusions or pneumothorax. IMPRESSION: New vascular congestion. No alveolar edema or consolidative airspace disease. Physical exam: General: Alert, In no apparent distress, Oriented x3 Respiratory: Clear to auscultation bilaterally, Normal air movement Cardiovascular: Regular rate/rhythm, Normal S1 S2 Gastrointestinal: Normal bowel sounds, Soft and benign, Non-distended, No tenderness Musculoskeletal: No clubbing, No swelling, No tenderness Neurological: Sensation intact, Cranial nerves 3-12 intact Impression: Severe sepsis related to left-sided pyelonephritis with ureteritis, urine culture positive for E. coli Elevated liver function likely related to above Acute renal injury likely related to above Hypertension Seizure disorder Hyperlipidemia Anemia of chronic disease: Plan: 1. Continue IV antibiotic therapy at this time. Will consider transitioning to oral medication tomorrow. 2. Continue to monitor LFT and renal function. Both improved. Continue to hold Lipitor due to elevated liver function. Hepatitis panel pending. 3. Will decrease IV fluids. Encourage oral intake. If taking good oral intake will Hep-Lock IV. Provide incentive spirometer. Encourage ambulation. 4. Continue to monitor the patient closely. 5. Restart home medicationInderal for hypertension. Continue to hold lisinopril. 6. Continue with antiseizure medication. 7. Continue to monitor hemoglobin. 8. Anticipate improvement over the next 24 to 48 hours. DVT prophylaxis: Lovenox CODE STATUS: Full code Advanced care planning: Home at discharge Time Spent Managing Pts Care (In Minutes): 55
--- NOTE | 2020-11-02 06:27 | RAD REPORT ---
EXAM DESCRIPTION: RAD - Chest Single View - 11/02/2020 1:02 am CLINICAL HISTORY: tachypnea COMPARISON: Chest Single View dated 10/31/2020; Chest Single View dated 01/02/2017; Chest Abdomen Pelv is W Cont dated 10/31/2020 FINDINGS: Increased prominence the pulmonary vasculature. The heart size is within normal limits.No acute osseous abnormality. No significant pleural effusions or pneumothorax. IMPRESSION: New vascular congestion. No alveolar edema or consolidative airspace disease.
[2020-11-02 08:50] LABS: Absolute Lymphocytes (CBC) 0.9 K/uL (0.7-4.9); Basophils % 0.4 % (0-1.3); Hematocrit 30.2 % (36.0-45.0); Lymphocytes % 6.8 % (15.3-44.8); MPV 9.2 fL (7.6-11.3); RBC Red Blood Cell Count 2.95 M/uL (3.86-4.86)
[2020-11-02] MEDS: ENOXAPARIN 40 MG/0.4 ML SQ SCH (09:00)
[2020-11-02] MEDS ORDERED: POTASSIUM CL SA 10 MEQ TAB PO ONE (09:00)
[2020-11-02] MEDS ORDERED: PROPRANOLOL HCL 80 MG SA CAP PO SCH (09:00)
[2020-11-02 09:11] LABS: Albumin 2.6 g/dL (3.4-5.0); Bilirubin Total 0.4 mg/dL (0.2-1.0); Magnesium 2.2 mg/dL (1.8-2.4); Potassium 3.6 mmol/L (3.5-5.1); Protein, Total 6.9 g/dL (6.4-8.2)
[2020-11-02 09:33] LABS: Ferritin 594.5 ng/mL (8-388)
[2020-11-02] MEDS: TIZANIDINE 4 MG TABLET PO PRN ×2 (09:35→22:58)
[2020-11-02] MEDS: DIVALPROEX DR 500MG TAB PO SCH (09:36)
[2020-11-02] MEDS: POTASS/SODIUM PHOSPHATE 1 PKT POWD.PACK PO SCH ×3 (09:37→13:31)
[2020-11-02] MEDS ORDERED: VANCOMYCIN/NS 1 gm 1 GM/250 ML BAG IVPB SCH (10:00)
[2020-11-02] MEDS: ACETAMINOPHEN 500 MG TAB PO PRN ×2 (15:21→15:57)
[2020-11-02] MEDS: MORPHINE 2 MG/ML SYR IV PRN ×2 (15:22→20:55)
[2020-11-02] MEDS ORDERED: NA CHLORIDE 0.9% 1,000 ML IV SCH (15:29)
[2020-11-02] MEDS: NACHLORIDE 0.45% 1,000 ML IV SCH (16:00)
[2020-11-02] MEDS: PROPRANOLOL HCL 80 MG SA CAP PO SCH (16:30)
[2020-11-02] MEDS: AMITRIPTYLINE 50 MG TAB PO SCH (20:55)
--- NOTE | 2020-11-02 21:23 | CON ---
Date of Consultation: 11/02/2020 Reason For Consultation: Transaminitis with elevated AST and ALT to 907 and 702. History Of Present Illness: The patient is a 50-year-old white female with history of severe headaches requiring Depakote therapy. The patient was admitted to hospital due to pyelonephritis with severe left lower back pain /. Apparently, this has improved since in hospital on therapy to 6/10, probably down to 2/10. From examiner, she has almost no pain. The patient denies any melena, hematochezia, hematemesis, coffee-grounds emesis, jaundice. She has had fevers and chills today, but no nausea or vomiting, no blood seen. Past Medical History: Significant for hypertension, gastroesophageal reflux disease, and chronic headaches requiring Depakote therapy from neurologist and also hysterectomy in the past. Family History: Father of widely metastatic cancer. Mother of multiorgan failure, had history of hypertension, dementia prior to that. Social History: She is single, no kids. No tobacco. No alcohol. She has 2 sisters and 3 brothers. One sister has of complications when an infant. Medications: Home medications include Ultram, propranolol, lisinopril, lidocaine jelly, divalproex, acetaminophen, caffeine tablet, atorvastatin, Elavil, Xanax, tizanidine. Allergies: NKDA. Physical Examination: Vital Signs: The patient is 5 foot 2, 137 pounds, BMI of 25.1 kg/m2, temperature 100.1 degrees Fahrenheit, pulse 103, respirations 34, blood pressure 155/84. General: No acute distress. HEENT: Mild alopecia. Normocephalic, atraumatic. Anicteric. Pupils equal, round, and reactive to light. Extraocular movements are intact. Oropharynx is clear. Neck: Supple. No masses. Respirations: Clear to auscultation bilaterally. Cardiac: Regular rate and rhythm. No gallops. Abdomen: Positive bowel sounds. Soft, nontender, nondistended. No hepatosplenomegaly. She did have some mild left costophrenic angle tenderness that was very mild. She did not even jerk when I percussed her back that much. Extremities: No clubbing, cyanosis, or edema. 2+ pulses. Neuro: Alert and oriented x3. Grossly nonfocal. 5/5 motor, sensation, light touch. Laboratory Data: The patient has a white count of 13.9, hemoglobin 10.0, hematocrit 30.2, platelet count of 169, polys of 88% down from 91% earlier. Also hemoglobin was 10.2 on admission, down to 5.0 and then up to 10.0 without a blood transfusion looks like. It is unclear why that happened, but MCV is 102. PT of 12.5, INR 1.09, PTT 28.7. Blood gas, pH of 7.4, pCO2 of 31.1, pO2 of 36, bicarb of 19, O2 saturation of 73%, end tidal O2 28%. The patient has sodium 143, potassium 3.6, chloride 117, bicarb 19, BUN 16, creatinine of 0.8, glucose of 59. Calcium 8.4, magnesium 2.2. Iron 11, transferrin 195, iron saturation 5.6%, which is low, ferritin of 595. Total bilirubin 0.4. On admission, the patient had an AST of 907 and ALT of 702, which decreased to 458 and 522 and then down today to 186 and 393. Troponin value less than 0.02. C-reactive protein high at 237. Total protein 6.9, albumin 2.6, globulin 4.3, which is elevated. Triglycerides 54, cholesterol 102, VLDL 26, HDL 65. Vitamin B12 of 1939, folate of greater than 20. TSH of 0.311, free T4 is 1.07. The patient has trace ketones, trace blood, greater than 50 white blood cells, on urinalysis when admitted, 5-10 rbc's, less than 5 squamous epithelial cells, bacteria 20- 50. Toxicology showed positive opiates, barbiturates, and benzo associated with her headache medications. COVID-[address] scan showed pyelonephritis and urethritis with increased stool throughout colon. Impression: 1. Transaminitis with elevated AST and ALT to 907 and 702 respectively, probably due to severe pyelonephritis with urethritis and systemic sepsis. This is improving with therapy with transaminitis going down from 907 to 186 and 702 down to 493, respectively. Total bilirubin and alkaline phosphatase were both normal, total bilirubin normal at 0.4, alkaline phosphatase normal at 144, mildly elevated. White count is up 13.9 with 91% polys, down to 88% polys, with IV antibiotics. 2. Pyelonephritis, as stated above with CT scan showing pyelonephritis, urethritis, and marked stool throughout colon. UA revealed greater than 50 white blood cells, less than 5 squamous epithelial cells, 20-50 bacteria and 5- 10 rbc's, with low back pain 10/10 on admission on the left side and down to 6/10, really 2/10 since admission and a urine tox from her headache medications including Depakote positive for opiates, barbiturates, and benzos. 3. History of severe headaches requiring Depakote and other headache medication, hypertension, gastroesophageal reflux disease, and hysterectomy. Recommendation: 1. Continue IV fluids, IV antibiotics. 2. Check viral hepatitis panel. 3. Monitor H and H. 4. p.r.n. pain medicines. 5. outpatient colonoscopy, EGD. 6. Guaiac stool x3. RENETTA/LESLI Voice ID: [id number] Report ID: [id number] [facility]OSPITALBelinda
[2020-11-02] MEDS: CEFEPIME 2 GM VIAL IV SCH (23:01)
[2020-11-02] MEDS ORDERED: CEFEPIME 2 GM VIAL ONE (23:10)
[2020-11-02] MEDS ORDERED: NA CHLORIDE 0.9% 100 ML ONE (23:19)
[2020-11-03] MEDS: ACETAMINOPHEN 500 MG TAB PO PRN (00:54)
[2020-11-03] MEDS: ALBUTEROL 2.5 MG/3 ML NEB SOL NEB SCH ×4 (01:52→20:00)
[2020-11-03] MEDS: NACHLORIDE 0.45% 1,000 ML IV SCH (05:20)
--- NOTE | 2020-11-03 06:00 | P.PN ---
Subjective Date of Service: 11/03/20 Primary Care Provider: Dr. Clark Chief Complaint: pyelonephritis Subjective: Improving, Doing well Physical Examination - Vital Signs Temperature: 98.6 F Blood Pressure: 148/82 Pulse: 113 Respirations: 20 Pulse Ox (%): 90 - Studies Microbiology Data (last 24 hrs): 10/31/20 19:30 Clean Catch Urine Roundup Count - Final >100,000 CFU/ML. 10/31/20 19:30 Clean Catch Urine - Final Escherichia Coli Gram Neg Enmanuel Medications List Reviewed: Yes Assessment & Plan Discharge Plan: Home Plan to discharge in: 24 Hours Physician Review Additional Text: ABUS: COMPARISON: None. TECHNIQUE: Sonographic imaging of the right upper quadrant was performed. FINDINGS: Liver measures 15.5 cm longitudinally and demonstrates homogenous echogenicity. Normal directional flow in the main portal vein is demonstrated. Gallbladder appears unremarkable. No evidence of gallstones or gallbladder wall thickening. Common bile duct measures 3 mm in width and is normal. Visualized pancreas appears unremarkable. Right kidney measures 10 cm x 4.9 cm x 4.6 cm. No evidence of right-sided hydronephrosis or renal stones. IMPRESSION: Unremarkable right upper quadrant ultrasound. CT scan: FINDINGS: Lungs are clear of mass and infiltrate. No pleural effusion, pleural thickening or pneumothorax. No significant aortic or pulmonary arterial tree finding. Mediastinal and hilar regions show no mass or abnormal lymphadenopathy. No chest wall mass or axillary lymphadenopathy. The liver, spleen and pancreas show no suspicious findings. Gallbladder is mostly contracted. No acute gallbladder finding seen. No biliary tree dilatation. Gallstones can be occult on CT imaging. No hydronephrosis or obstructing calculus. There is heterogeneous enhancement of the left renal parenchyma consistent with pyelonephritis. There is slight thickening and enhancement of the left ureter. No adrenal abnormalities. Urinary bladder is contracted which accentuates the wall thickness. This limits ability to evaluate for cystitis. No gastric dilatation or gastric wall thickening. Multiple fluid-filled small bowel loops are present. Patient has a very large retained stool volume distending the entirety of the colon. The colon is tortuous and redundant with the transverse colon low-lying along the pelvic floor. Appendix is not clearly defined. Acute appendicitis is not suspected. No acute or destructive bony process. No significant vascular findings. IMPRESSION: Left-sided pyelonephritis and ureteritis. No abscess or other complicating factor. Urinary bladder is too contracted to allow all accurate assessment of possible cystitis. Constipation pattern with a large amount of stool filling and distending the entirety of the colon. CXR: COMPARISON: Chest Single View dated 10/31/2020; Chest Single View dated 01/02/2017; Chest Abdomen Pelvis W Cont dated 10/31/2020 FINDINGS: Increased prominence the pulmonary vasculature. The heart size is within normal limits.No acute osseous abnormality. No significant pleural effusions or pneumothorax. IMPRESSION: New vascular congestion. No alveolar edema or consolidative airspace disease. Physical exam: General: Alert, In no apparent distress, Oriented x3 Respiratory: Clear to auscultation bilaterally, Normal air movement Cardiovascular: Regular rate/rhythm, Normal S1 S2 Gastrointestinal: Normal bowel sounds, Soft and benign, Non-distended, No tenderness Musculoskeletal: No clubbing, No swelling, No tenderness Neurological: Sensation intact, Cranial nerves 3-12 intact Impression: Severe sepsis related to left-sided pyelonephritis with ureteritis, urine culture positive for E. coli Elevated liver function likely related to above Acute renal injury likely related to above Hypertension Seizure disorder Hyperlipidemia Anemia of chronic disease Plan: 1. Continue IV antibiotic therapy at this time. Await for final results on urine culture. Will transition to oral medication at discharge. 2. LFTs improved. LFTs elevated likely related to severe sepsis. 3. Patient tolerating diet. Encourage oral intake. Discontinue IV fluids. Encourage incentive spirometer. Encourage ambulation. 4. Patient doing well at this time. Likely discharge tomorrow. 5. Continue Inderal. Restart lisinopril for better blood pressure control. 6. Continue with antiseizure medication. 7. Continue to monitor hemoglobin. 8. Anticipate discharge tomorrow. DVT prophylaxis: Lovenox CODE STATUS: Full code Advanced care planning: Home at discharge Time Spent Managing Pts Care (In Minutes): 55
[2020-11-03 06:56] LABS: ALT/SGPT 315 U/L (12-78); AST/SGOT 124 U/L (15-37); Albumin 2.2 g/dL (3.4-5.0); Alkaline Phosphatase 134 U/L (45-117); BUN Blood Urea Nitrogen 13 mg/dL (7-18); Bicarbonate 19 mmol/L (21-32); Bilirubin Total 0.4 mg/dL (0.2-1.0); Glucose Level 81 mg/dL (74-106); NT PRO-BNP 8966 pg/mL (<125); Potassium 3.9 mmol/L (3.5-5.1); Sodium Level 141 mmol/L (136-145)
[2020-11-03 06:58] LABS: Absolute Lymphocytes (CBC) 1.1 K/uL (0.7-4.9); Basophils % 0.4 % (0-1.3); Hematocrit 24.6 % (36.0-45.0); Lymphocytes % 7.3 % (15.3-44.8); MPV 9.3 fL (7.6-11.3); RBC Red Blood Cell Count 2.43 M/uL (3.86-4.86)
[2020-11-03] MEDS: DIVALPROEX DR 500MG TAB PO SCH (08:45)
[2020-11-03] MEDS: PROPRANOLOL HCL 80 MG SA CAP PO SCH (08:45)
[2020-11-03] MEDS: ENOXAPARIN 40 MG/0.4 ML SQ SCH (08:46)
[2020-11-03] MEDS: lisinopriL 10 MG TAB PO SCH (09:45)
--- NOTE | 2020-11-03 11:49 | RAD REPORT ---
EXAM DESCRIPTION: RAD - Chest Pa And Lat (2 Views) - 11/03/2020 10:54 am CLINICAL HISTORY: sob Chest pain. COMPARISON: Chest Single View dated 11/02/2020; Chest Single View dated 10/31/2020; Chest Single View dated 01/02/2017 FINDINGS: Mild interstitial pulmonary edema is present appearing mildly improved. Small bilateral pl eural effusions, slightly larger on the right. The heart is upper limit of normal in size. No displac ed fractures. IMPRESSION: Mild improvement in CHF/ volume overload pattern.
--- NOTE | 2020-11-03 13:03 | P.PN ---
Subjective Date of Service: 11/03/20 Primary Care Provider: Dr. Clark Chief Complaint: elevated AST/ALT,pyelonephritis / ureteritis, abn CT abd/pel,left back pain Subjective: Improving (Much less left back pain compared to admission at 1010 to now < 6/10. WBC 13.9 to 15.4 overnight; discussed with attending -> will adjust IV antibiotics.) Review of Systems General: Weakness (Improved.), Malaise (Improved.) Genitourinary: Other (back pain - Improved.) Physical Examination - Vital Signs Temperature: 98.6 F Blood Pressure: 141/86 Pulse: 89 Respirations: 20 Pulse Ox (%): 90 - Physical Exam General: Alert, In no apparent distress, Oriented x3, Cooperative HEENT: Atraumatic, Normocephalic, PERRLA, EOMI Neck: Supple Respiratory: Normal air movement Cardiovascular: Normal pulses, Edema (trace in LEs) Gastrointestinal: Soft and benign, No tenderness, No rebound, No guarding Neurological: Normal speech - Studies Medications List Reviewed: Yes Assessment And Plan - Current Problems (Diagnosis) (1) Pyelonephritis Current Visit: Yes Status: Acute (2) Severe sepsis Current Visit: Yes Status: Acute (3) Transaminitis Current Visit: Yes Status: Acute (4) Anemia Current Visit: Yes Status: Chronic Qualifiers: Anemia type: unspecified type Qualified Code(s): D64.9 - Anemia, unspecified - Plan REC: 1) ABx adjustment 2) outpatient colonoscopy (no prior colon cancer screening) & EGD with long-term GERD 3) prn pain medications 4) await acute viral hepatitis panel Physician Review Additional Text: ABUS: COMPARISON: None. TECHNIQUE: Sonographic imaging of the right upper quadrant was performed. FINDINGS: Liver measures 15.5 cm longitudinally and demonstrates homogenous echogenicity. Normal directional flow in the main portal vein is demonstrated. Gallbladder appears unremarkable. No evidence of gallstones or gallbladder wall thickening. Common bile duct measures 3 mm in width and is normal. Visualized pancreas appears unremarkable. Right kidney measures 10 cm x 4.9 cm x 4.6 cm. No evidence of right-sided hydronephrosis or renal stones. IMPRESSION: Unremarkable right upper quadrant ultrasound. CT scan: FINDINGS: Lungs are clear of mass and infiltrate. No pleural effusion, pleural thickening or pneumothorax. No significant aortic or pulmonary arterial tree finding. Mediastinal and hilar regions show no mass or abnormal lymphadenopathy. No chest wall mass or axillary lymphadenopathy. The liver, spleen and pancreas show no suspicious findings. Gallbladder is mostly contracted. No acute gallbladder finding seen. No biliary tree dilatation. Gallstones can be occult on CT imaging. No hydronephrosis or obstructing calculus. There is heterogeneous enhancement of the left renal parenchyma consistent with pyelonephritis. There is slight thickening and enhancement of the left ureter. No adrenal abnormalities. Urinary bladder is contracted which accentuates the wall thickness. This limits ability to evaluate for cystitis. No gastric dilatation or gastric wall thickening. Multiple fluid-filled small bowel loops are present. Patient has a very large retained stool volume distending the entirety of the colon. The colon is tortuous and redundant with the transverse colon low-lying along the pelvic floor. Appendix is not clearly defined. Acute appendicitis is not suspected. No acute or destructive bony process. No significant vascular findings. IMPRESSION: Left-sided pyelonephritis and ureteritis. No abscess or other complicating factor. Urinary bladder is too contracted to allow all accurate assessment of possible cystitis. Constipation pattern with a large amount of stool filling and distending the entirety of the colon. CXR: COMPARISON: Chest Single View dated 10/31/2020; Chest Single View dated 01/02/2017; Chest Abdomen Pelvis W Cont dated 10/31/2020 FINDINGS: Increased prominence the pulmonary vasculature. The heart size is within normal limits.No acute osseous abnormality. No significant pleural effusions or pneumothorax. IMPRESSION: New vascular congestion. No alveolar edema or consolidative airspace disease.
[2020-11-03] MEDS ORDERED: Levofloxacin500mg IV 500 MG/100 ML BAG IV SCH (14:00)
[2020-11-03] MEDS ORDERED: ALBUTEROL 2.5 MG/3 ML NEB SOL ONE (14:28)
[2020-11-03] MEDS: MORPHINE 2 MG/ML SYR IV PRN (16:49)
[2020-11-03] MEDS: AMITRIPTYLINE 50 MG TAB PO SCH (20:47)
[2020-11-03] MEDS: ALPRAZOLAM 1 MG TABLET PO PRN (20:47)
[2020-11-03] MEDS: TIZANIDINE 4 MG TABLET PO PRN (20:47)
[2020-11-04] MEDS: ALBUTEROL 2.5 MG/3 ML NEB SOL NEB SCH ×3 (01:55→13:40)
[2020-11-04] MEDS: MORPHINE 2 MG/ML SYR IV PRN (04:38)
[2020-11-04 05:57] LABS: Absolute Lymphocytes (CBC) 1.1 K/uL (0.7-4.9); Basophils % 0.3 % (0-1.3); Hematocrit 24.1 % (36.0-45.0); Lymphocytes % 11.1 % (15.3-44.8); RBC Red Blood Cell Count 2.39 M/uL (3.86-4.86)
--- NOTE | 2020-11-04 06:06 | P.DS ---
Admission Date: 10/31/20 Discharge Date: 11/04/20 Primary Care Provider: Dr. Clark Disposition: ROUTINE DISCHARGE Discharge Condition: GOOD Reason for Admission: elevated AST/ALT,pyelonephritis / ureteritis, abn CT abd/pel,left back pain Consultations: GI-Dr. Sales Procedures: ABUS: COMPARISON: None. TECHNIQUE: Sonographic imaging of the right upper quadrant was performed. FINDINGS: Liver measures 15.5 cm longitudinally and demonstrates homogenous echogenicity. Normal directional flow in the main portal vein is demonstrated. Gallbladder appears unremarkable. No evidence of gallstones or gallbladder wall thickening. Common bile duct measures 3 mm in width and is normal. Visualized pancreas appears unremarkable. Right kidney measures 10 cm x 4.9 cm x 4.6 cm. No evidence of right-sided hydronephrosis or renal stones. IMPRESSION: Unremarkable right upper quadrant ultrasound. CT scan: FINDINGS: Lungs are clear of mass and infiltrate. No pleural effusion, pleural thickening or pneumothorax. No significant aortic or pulmonary arterial tree finding. Mediastinal and hilar regions show no mass or abnormal lymphadenopathy. No chest wall mass or axillary lymphadenopathy. The liver, spleen and pancreas show no suspicious findings. Gallbladder is mostly contracted. No acute gallbladder finding seen. No biliary tree dilatation. Gallstones can be occult on CT imaging. No hydronephrosis or obstructing calculus. There is heterogeneous enhancement of the left renal parenchyma consistent with pyelonephritis. There is slight thickening and enhancement of the left ureter. No adrenal abnormalities. Urinary bladder is contracted which accentuates the wall thickness. This limits ability to evaluate for cystitis. No gastric dilatation or gastric wall thickening. Multiple fluid-filled small bowel loops are present. Patient has a very large retained stool volume distending the entirety of the colon. The colon is tortuous and redundant with the transverse colon low-lying along the pelvic floor. Appendix is not clearly defined. Acute appendicitis is not suspected. No acute or destructive bony process. No significant vascular findings. IMPRESSION: Left-sided pyelonephritis and ureteritis. No abscess or other complicating factor. Urinary bladder is too contracted to allow all accurate assessment of possible cystitis. Constipation pattern with a large amount of stool filling and distending the entirety of the colon. CXR: COMPARISON: Chest Single View dated 10/31/2020; Chest Single View dated 01/02/2017; Chest Abdomen Pelvis W Cont dated 10/31/2020 FINDINGS: Increased prominence the pulmonary vasculature. The heart size is within normal limits.No acute osseous abnormality. No significant pleural effusions or pneumothorax. IMPRESSION: New vascular congestion. No alveolar edema or consolidative airspace disease. Medical Problem List: Severe sepsis related to left-sided pyelonephritis with ureteritis, urine culture positive for E. coli Elevated liver function likely related to above Acute renal injury likely related to above Hypertension Seizure disorder Chronic headaches and pain Anxiety Hyperlipidemia Anemia of chronic disease Brief History of Present Illness: 50-year-old female presented with left flank pain, fever and chills. Patient found to have left-sided pyelonephritis and ureteritis. Patient admitted for treatment. Hospital Course: Patient presented with severe sepsis related to left-sided pyelonephritis with ureteritis. Patient was admitted for treatment. Patient received IV fluids with antibiotic therapy. Elevated liver function was also identified along with acute renal injury. Her condition has significantly improved. Patient without significant pain. Urine culture was positive for E. coli. Patient has done well. At discharge patient will continue with Levaquin 500 mg 1 pill daily for 7 days. UTI prevention will be provided. Recommend follow-up with PCP in 1 week to follow-up this hospitalization. Education on pyelonephritis provided. Recommend to recheck labCMP and CBC to monitor resolution. Patient with noted elevated liver function and renal injury related to severe sepsis. This has improved. Recommend to recheck labCBC, CMP in 1 to 2 weeks to follow-up this hospitalization and to monitor resolution. Recommend to hold Lipitor 10 mg at this time until liver function tests are normal. Then that medication can be restarted. Patient with hypertension. Blood pressure is now stable. At discharge she will continue with lisinopril 10 mg daily and Inderal 80 mg daily. Recommend to maintain blood pressure less than 130/80. Further adjustment can be done by her PCP. Patient with seizure disorder. At discharge we will continue with Depakote 500 mg daily. Patient with chronic headaches and chronic pain. At discharge she will continue with her medications including Inderal 80 mg daily. Patient will also continue with tramadol as needed and tizanidine as needed. Recommend follow-up with PCP to further monitor and adjust medication. Patient with anxiety. At discharge patient will continue with Xanax 1 mg 4 times a day as needed and Elavil 50 mg at bedtime. Recommend follow-up with PCP to further monitor and adjust. Patient with hyperlipidemia. As recommended above recommend to hold Lipitor at this time. Recommend to recheck labCMP in 1 to 2 weeks. Once liver function tests are within normal range then Lipitor can be restarted. Patient with anemia chronic disease. This appears stable. Recommend to recheck labCBC in 1 to 2 weeks to monitor progress. Vital Signs/Physical Exam: Temp Pulse Resp BP Pulse Ox 99.0 F 89 20 137/79 96 11/04/20 04:00 11/04/20 04:00 11/04/20 04:00 11/04/20 04:00 11/04/20 04:00 General: Alert, In no apparent distress, Oriented x3, Cooperative HEENT: Atraumatic Neck: Supple Respiratory: Clear to auscultation bilaterally, Normal air movement Cardiovascular: Normal pulses, Regular rate/rhythm Gastrointestinal: Normal bowel sounds, No tenderness, No masses, No rebound Musculoskeletal: No contractures, No erythema, No tenderness, No warmth Integumentary: No tenderness/swelling, No erythema, No warmth, No cyanosis Neurological: Normal speech, Normal strength at 5/5 x4 extr, Normal tone, Normal affect Laboratory Data at Discharge: WBC 10.10 K/uL (4.3-10.9) D 11/04/20 05:25 Hgb 8.2 g/dL (12.0-15.0) L 11/04/20 05:25 Hct 24.1 % (36.0-45.0) L 11/04/20 05:25 Plt Count 175 K/uL (152-406) D 11/04/20 05:25 PT 12.5 SECONDS (9.5-12.5) 10/31/20 17:48 INR 1.09 10/31/20 17:48 APTT 28.7 SECONDS (24.3-36.9) 10/31/20 17:48 APTT Cancelled 10/31/20 17:48 Sodium 141 mmol/L (136-145) 11/03/20 06:14 Sodium Cancelled 11/03/20 06:14 Potassium 3.9 mmol/L (3.5-5.1) 11/03/20 06:14 Potassium Cancelled 11/03/20 06:14 BUN 13 mg/dL (7-18) 11/03/20 06:14 BUN Cancelled 11/03/20 06:14 Creatinine 0.52 mg/dL (0.55-1.3) L 11/03/20 06:14 Creatinine Cancelled 11/03/20 06:14 Glucose 81 mg/dL (74-106) 11/03/20 06:14 Glucose Cancelled 11/03/20 06:14 Phosphorus 2.4 mg/dL (2.5-4.9) L 11/03/20 06:14 Magnesium 2.0 mg/dL (1.8-2.4) 11/03/20 06:14 Total Bilirubin 0.4 mg/dL (0.2-1.0) 11/03/20 06:14 AST 124 U/L (15-37) H 11/03/20 06:14 ALT 315 U/L (12-78) H* 11/03/20 06:14 Alkaline Phosphatase 134 U/L (45-117) H 11/03/20 06:14 Triglycerides 54 mg/dL (<150) 11/01/20 06:06 Cholesterol 102 mg/dL (<200) 11/01/20 06:06 HDL Cholesterol 65 mg/dL (40-60) H 11/01/20 06:06 Cholesterol/HDL Ratio 1.57 11/01/20 06:06 Amylase 39 U/L (25-115) 10/31/20 17:48 Lipase 31 U/L (73-393) L 10/31/20 17:48 Home Medications: Alprazolam [Xanax] 1 mg PO QID 10/31/20 Amitriptyline HCl 50 mg PO BEDTIME 10/31/20 Butalb/Acetaminophen/Caffeine [Puvima-Lzwcpwec-Wczb 50-325-40] 1 each PO TID 10/31/20 Divalproex Sodium 500 mg PO DAILY 10/31/20 LIDOCAINE 2% JELLY, 5mL [Xylocaine 2% Jelly*] 1 applic PRN 10/31/20 Lisinopril [Zestril] 10 mg PO DAILY 10/31/20 Propranolol HCl [Propranolol HCl ER] 80 mg PO DAILY 10/31/20 Tizanidine HCl 2 mg PO TID 10/31/20 Tramadol HCl [Ultram] 50 mg PO Q4H PRN 10/31/20 Levofloxacin [Levaquin] 500 mg PO DAILY #7 tablet 11/04/20 New Medications: Levofloxacin [Levaquin] 500 mg PO DAILY #7 tablet Physician Discharge Instructions: Patient presented with severe sepsis related to left-sided pyelonephritis with ureteritis. Patient was admitted for treatment. Patient received IV fluids with antibiotic therapy. Elevated liver function was also identified along with acute renal injury. Her condition has significantly improved. Patient without significant pain. Urine culture was positive for E. coli. Patient has done well. At discharge patient will continue with Levaquin 500 mg 1 pill daily for 7 days. UTI prevention will be provided. Recommend follow-up with PCP in 1 week to follow-up this hospitalization. Education on pyelonephritis provided. Recommend to recheck labCMP and CBC to monitor resolution. Patient with noted elevated liver function and renal injury related to severe sepsis. This has improved. Recommend to recheck labCBC, CMP in 1 to 2 weeks to follow-up this hospitalization and to monitor resolution. Recommend to hold Lipitor 10 mg at this time until liver function tests are normal. Then that medication can be restarted. Patient with hypertension. Blood pressure is now stable. At discharge she will continue with lisinopril 10 mg daily and Inderal 80 mg daily. Recommend to maintain blood pressure less than 130/80. Further adjustment can be done by her PCP. Patient with seizure disorder. At discharge we will continue with Depakote 500 mg daily. Patient with chronic headaches and chronic pain. At discharge she will continue with her medications including Inderal 80 mg daily. Patient will also continue with tramadol as needed and tizanidine as needed. Recommend follow-up with PCP to further monitor and adjust medication. Patient with anxiety. At discharge patient will continue with Xanax 1 mg 4 times a day as needed and Elavil 50 mg at bedtime. Recommend follow-up with PCP to further monitor and adjust. Patient with hyperlipidemia. As recommended above recommend to hold Lipitor at this time. Recommend to recheck labCMP in 1 to 2 weeks. Once liver function tests are within normal range then Lipitor can be restarted. Patient with anemia chronic disease. This appears stable. Recommend to recheck labCBC in 1 to 2 weeks to monitor progress. Diet: AHA Activity: Ad caroline Followup: Colton Clark MD [Primary Care Provider] - Time spent managing pt's care (in minutes): 55
[2020-11-04 06:09] LABS: ALT/SGPT 234 U/L (12-78); AST/SGOT 71 U/L (15-37); Albumin 1.9 g/dL (3.4-5.0); Alkaline Phosphatase 141 U/L (45-117); BUN Blood Urea Nitrogen 11 mg/dL (7-18); Bicarbonate 22 mmol/L (21-32); Bilirubin Total 0.4 mg/dL (0.2-1.0); Glucose Level 74 mg/dL (74-106); Magnesium 1.8 mg/dL (1.8-2.4); Potassium 3.4 mmol/L (3.5-5.1); Sodium Level 142 mmol/L (136-145)
[2020-11-04] MEDS ORDERED: MAGNESIUM OXIDE 400 MG TAB PO ONE (07:41)
[2020-11-04 07:54] LABS: Platelet Estimate ADEQ
[2020-11-04 07:55] LABS: Blood Morphology Comment NOT SEEN (NOT SEEN); Toxic Granulation NOTED
[2020-11-04] MEDS ORDERED: MAGNESIUM SULFATE 1 gm IVPB 1 GM/100 ML BAG IV ONE (09:00)
[2020-11-04] MEDS ORDERED: POTASSIUM CL SA 10 MEQ TAB PO ONE (09:00)
[2020-11-04] MEDS: ENOXAPARIN 40 MG/0.4 ML SQ SCH (09:14)
[2020-11-04] MEDS: lisinopriL 10 MG TAB PO SCH (09:15)
[2020-11-04] MEDS: PROPRANOLOL HCL 80 MG SA CAP PO SCH (09:16)
[2020-11-04] MEDS: DIVALPROEX DR 500MG TAB PO SCH (09:17)
[2020-11-04 11:22] VITALS: O2SAT 100
[2020-11-04 12:28] VITALS: BP 137/79; TEMP 98
[2020-11-04 15:27] LABS: Hepatitis C Virus RNA (PCR)log <1.18 log IU/mL
--- NOTE | 2020-11-05 08:18 | ECHO ---
HEIGHT: 5 ft 2 in WEIGHT: 137 lb 3 oz DATE OF STUDY: 11/04/[address]: Scott Waddell DO 2-DIMENSIONAL: YES M.MODE: YES DOPPLER: YES COLOR FLOW: YES TDS: NO PORTABLE: NO DEFINITY: NO BUBBLE STUDY: NO DIAGNOSIS: HYPERTENSION CARDIAC HISTORY: CATHERIZATION: SURGERY: PROSTHETIC VALVE: PACEMAKER: MEASUREMENTS (cm) DIASTOLIC (NORMALS) SYSTOLIC (NORMALS) IVSd 0.8 (0.6-1.2) LA Diam 2.3 (1.9-4.0) LVEF 64% LVIDd 4.5 (3.5-5.7) LVIDs 2.9 (2.0-3.5) %FS 35% LVPWd 0.9 (0.6-1.2) Ao Diam 2.4 (2.0-3.7) 2 DIMENSIONAL ASSESSMENT: RIGHT ATRIUM: NORMAL LEFT ATRIUM: NORMAL RIGHT VENTRICLE: NORMAL LEFT VENTRICLE: NORMAL TRICUSPID VALVE: MITRAL VALVE: PULMONIC VALVE: AORTIC VALVE: PERICARDIAL EFFUSION: SMALL AORTIC ROOT: NORMAL LEFT VENTRICULAR WALL MOTION: NORMAL DOPPLER/COLOR FLOW: SEE BELOW. COMMENTS: NORMAL LEFT VENTRICULAR EJECTION FRACTION 55-60% WITH NORMAL WALL MOTION. MILD MITRAL, PULMONARY, AORTIC AND TRICUSPID REGURGITATION. RIGHT VENTRICULAR SYSTOLIC PRESSURE OF 35-40 mmHg. TECHNOLOGIST: Tova LR
[2020-11-07 14:29] LABS: HBsAG Nonreactive (Nonreactive)
== END 2020-11-04 15:21 | disposition home or self-care (01) | DRG 872 ==
LOC: ER 16:54 → ERHOLD 21:21 → 2ND 11-01 13:22
PROVIDERS: ADMIT Hospitalist; ATTEND Hospitalist
DX: A41.51 Sepsis due to Escherichia coli [E. coli] (principal); N10 Acute pyelonephritis; N17.9 Acute kidney failure, unspecified; R65.20 Severe sepsis without septic shock; N28.89 Other specified disorders of kidney and ureter; I10 Essential (primary) hypertension; G40.909 Epilepsy, unspecified, not intractable, without status epilepticus; R51.9 Headache, unspecified; F41.9 Anxiety disorder, unspecified; E78.5 Hyperlipidemia, unspecified; D63.8 Anemia in other chronic diseases classified elsewhere; R74.01 Elevation of levels of liver transaminase levels; G89.29 Other chronic pain; Z20.822 Contact with and (suspected) exposure to COVID-19
CPT/HCPCS: 36415; 71045; 71046; 71260; 74177; 76705; 80048; 80053; 80061; 80074; 80076; 80202; 80307; 80329; 81003; 81015; 82150; 82550; 82553; 82607; 82728; 82746; 82805; 83036; 83540; 83605; 83690; 83735; 83880; 84100; 84145; 84439; 84443; 84466; 84484; 85014; 85018; 85025; 85610; 85730; 86140; 86708; 86850; 86900; 86901; 87040; 87077; 87086; 87088; 87186; 87520; 87522; 93005; 93306; 94640; 94760; 96365; 96366; 97116; 97161; 99285; J0692; J1650; J2270; J2405; J3010; J3370; J3480; J7030; J7040; J7050; Q9967; U0003

== ENCOUNTER 2024-04-08 00:48 | Emergency (ER) | payer OTHER ==
--- OUTSIDE RECORDS SUMMARY | 2024-04-08 00:52 | XMS REPORT | Continuity of Care Document ---
Author Name Unknown Address [address] [facility] [place] [address] [facility] Address [address] [facility] [address] [place] [address] Care Team Providers Care [place] Headgate Operator Name Role Phone Pcp, Patient Does Not Have A Primary Care Physic laurie Colton Clark Attending Clinician Unavailable RICO SKELTON Attending Clinician RICO Del Cid Attending Clinician Katja Vaughn MD Attending Clinician [phone] Katja Goins MD Attending Clinician [phone] KATJA GOINS Attending Clinician Unavailchinedu e Doctor Unassigned, [place] Attending Clinician U Iris Cowart MD Attending Clinician [phone] Noe Fisher NP Attending Clinician NOE Pelletier Attending Clinician UnavailYENY Laguna Attending Clinician Unavailable Yeny Turcios MD Attending Clinician [phone] Carolyn Enriquez MA Attending Clinician Unavailchinedu Ortiz MA, Carmen A Attending Clinician UnavailLUIS Rock Attending Clinician Unavailable Therapy, [facility] Attending Clinician Unavailable Luis Greene MD Attending Clinician [phone] Nurse, Jan [facility] Attending Clinician Unavailable Payers Payer Name Policy Type Policy Number Effective Date Expirati on Date Source Problems Condition Name Condition Details Condition Category Status Onset Date Resolution Date Last Treatment Date Treating Clinician Comments Source Essential hypertensi on Essential hypertensi on Disease Active 2021-04 00:00: 00 [facility] Epileptic seizure Epileptic seizure Disease Active 2021-04 00:00: 00 [facility] Hyperlipid emia, unspecifie d hyperlipid emia type Hyperlipid emia, unspecifie d hyperlipid emia type Disease Active 2021-04 00:00: 00 [facility] Migraine Migraine Disease Active 2021-04 00:00: 00 [facility] Muscle spasm Muscle spasm Disease Active 2021-04 00:00: 00 [facility] Generalize d anxiety disorder Generalize d anxiety disorder Disease Active 2021-04 00:00: 00 [facility] Epileptic seizure Epileptic seizure Disease Active 2021-04 00:00: 00 [facility] Breast cancer screening by mammogram Breast cancer screening by mammogram Disease Active 12-03 00:00: 00 [facility] Menopausal and female climacteri c states Menopausal and female climacteri c states Disease Active 12-03 00:00: 00 [facility] Dysuria Dysuria Disease Active 12-03 00:00: 00 [facility] Need for vaccinatio n Need for vaccinatio n Disease Active 12-03 00:00: 00 [facility] Abnormal finding on urinalysis Abnormal finding on urinalysis Disease Active 12-03 00:00: 00 [facility] Osteopenia , unspecifie d location Osteopenia , unspecifie d location Disease Active -19 00:00: 00 [facility] Allergies, Adverse Reactions, Alerts Allergy Name Allergy Type Status Severity Reaction(s) Onset Date Inactive Date Treating Clinician Comments Source No Known Allergie s DA Active U 08-19 00:00: 00 [facility] No Known Allergie s DA Active U 05-06 00:00: 00 [facility] NO KNOWN ALLERGIE S Drug Class Active [facility] Social History Social Habit Start Date Stop Date Quantity Comments Source History SDOH Alcohol Comment [facility] History SDOH Alcohol Std Drinks [facility] History SDOH Alcohol Binge [facility] Alcohol intake 2023-05-13 00:00:00 2023-05-13 00:00:00 Lifetime non-drinker (finding) [facility] Alcoholic beverage intake 2023-05-13 00:00:00 2023-05-13 00:00:00 Lifetime non-drinker (finding) [facility] Tobacco use and exposure 2021-12-03 00:00:00 2021-12-03 00:00:00 Smokeless tobacco non-user [facility] History SDOH Alcohol Frequency 2020-05-07 00:00:00 2020-05-07 00:00:00 1 [facility] History of Social function 2020-05-07 00:00:00 2020-05-07 00:00:00 [facility] Sex assigned at 1970 00:00:00 1970 00:00:00 [facility] Smoking Status Start Date Stop Date Source Never smoked tobacco [facility] Medications Ordered Medication Name Filled Medication Name Start Date Stop Date Current Medication? Ordering Clinician Indication Dosage Frequency Signature (SIG) Comments Components Source acetaminoph en-codeine 300-30 mg tablet 10-31 00:00: 00 11-08 04:59 :00 No [id number] 1{tbl} Take 1 tablet by mouth every 4 (four) hours as needed for Pain (scale 7-10) for up to 7 days. Indication s: acute pain [facility] buPROPion SR (WELLBUTRIN SR) 100 mg SR tablet 05-13 00:00: 00 Yes [id number] 100mg Take 1 tablet by mouth in the morning. [facility] buPROPion SR (WELLBUTRIN SR) 100 mg SR tablet 2022-04 00:00: 00 05-13 00:00 :00 No [id number] 100mg Take 1 tablet by mouth in the morning. [facility] dicyclomine 20 mg tablet 2021-04 11:22: 57 Yes 20mg Take 20 mg by mouth. [facility] polyethylen e glycol 3350 17 gram powder 2021-04 11:22: 57 Yes 17g Take 17 g by mouth. [facility] buPROPion SR (WELLBUTRIN SR) 100 mg SR tablet 2021-04 00:00: 00 03-26 00:00 :00 No [id number] 100mg Take 1 tablet by mouth in the morning. [facility] Dexlansopra zole 60 mg capsule 12-03 14:46: 32 Yes Take by mouth. [facility] dicyclomine 20 mg tablet 12-03 14:46: 32 Yes 20mg Take 20 mg by mouth. [facility] mirabegron 50 mg tablet 12-03 14:46: 32 Yes Take by mouth. [facility] polyethylen e glycol 3350 17 gram powder 12-03 14:46: 32 Yes 17g Take 17 g by mouth. [facility] buPROPion SR (WELLBUTRIN SR) 100 mg SR tablet 12-03 00:00: 00 03-20 00:00 :00 No [id number] 100mg Take 1 tablet by mouth in the morning and 1 tablet in the evening. [facility] Nitrofurant oin&Nit. Macrocryst (MACROBID) 100 mg capsule 12-03 00:00: 00 12-11 04:59 :00 No [id number] 100mg Take 1 capsule by mouth in the morning and 1 capsule in the evening. Do all this for 7 days. [facility] traMADoL 50 mg tablet 2020-04 1-24 00:00: 00 Yes [facility] proMETHazin e 25 mg tablet 2020-04 0-28 00:00: 00 Yes [facility] acyclovir 400 mg tablet 2020-04 0 00:00: 00 Yes [facility] estradioL 0.5 mg tablet 05-28 00:00: 00 12-03 00:00 :00 No [id number] .5mg Take 1 tablet by mouth daily. [facility] propranoloL 80 mg tablet 05-07 14:37: 12 Yes 80mg Take 80 mg by mouth 2 (two) times daily. [facility] divalproex ER 500 mg 24 hr tablet 05-07 14:37: 12 Yes 500mg Take 500 mg by mouth every 24 (twenty-fo ur) hours. [facility] ALPRAZolam 1 mg tablet 2019-04 00:00: 00 Yes TAKE 1 TABLET BY MOUTH FOUR TIMES A DAY [facility] atorvastati n 10 mg tablet 2019-04 00:00: 00 Yes 10mg Take 10 mg by mouth daily. [facility] amitriptyli ne 50 mg tablet 2019-04 00:00: 00 Yes 50mg Take 50 mg by mouth daily. [facility] lisinopriL 10 mg tablet 2019-04 00:00: 00 Yes 10mg Take 10 mg by mouth daily. [facility] butalbital- acetaminoph en-caff 50-325-40 mg tablet 2019-04 00:00: 00 Yes TAKE 1 TABLET BY MOUTH 3 TIMES A DAY [facility] tiZANidine 2 mg tablet 2019-04 00:00: 00 Yes TAKE 1 TABLET BY MOUTH THREE TIMES A DAY NEEDED [facility] Vital Signs Vital Name Observation Time Observation Value Comments S faith Systolic blood pressure 2023-11-01 20:25:00 150 mm[Hg] [facility] Diastolic blood pressure 2023-11-01 20:25:00 92 mm[Hg] [facility] Heart rate 2023-11-01 20:25:00 96 /min [facility] Body temperature 2023-11-01 20:25:00 36.33 Jailyn [facility] Body height 2023-11-01 20:25:00 160 cm [facility] Body weight 2023-11-01 20:25:00 75.705 kg [facility] BMI 2023-11-01 20:25:00 29.57 kg/m2 [facility] Systolic blood pressure 2023-05-13 21:28:00 136 mm[Hg] [facility] Diastolic blood pressure 2023-05-13 21:28:00 87 mm[Hg] [facility] Heart rate 2023-05-13 21:28:00 93 /min [facility] Body temperature 2023-05-13 21:28:00 36.72 Jailyn [facility] Respiratory rate 2023-05-13 21:28:00 16 /min [facility] Body height 2023-05-13 21:28:00 162.6 cm [facility] Body weight 2023-05-13 21:28:00 74.844 kg [facility] BMI 2023-05-13 21:28:00 28.32 kg/m2 [facility] Systolic blood pressure 2022-03-20 17:22:00 141 mm[Hg] [facility] Diastolic blood pressure 2022-03-20 17:22:00 82 mm[Hg] [facility] Heart rate 2022-03-20 17:21:00 90 /min [facility] Body temperature 2022-03-20 17:21:00 36.72 Jailyn [facility] Body height 2022-03-20 17:21:00 157.5 cm [facility] Body weight 2022-03-20 17:21:00 68.72 kg [facility] BMI 2022-03-20 17:21:00 27.71 kg/m2 [facility] Systolic blood pressure 2021-12-03 19:44:00 148 mm[Hg] [facility] Diastolic blood pressure 2021-12-03 19:44:00 95 mm[Hg] [facility] Heart rate 2021-12-03 19:42:00 103 /min [facility] Body temperature 2021-12-03 19:42:00 36.72 Jailyn [facility] Respiratory rate 2021-12-03 19:42:00 18 /min [facility] Body height 2021-12-03 19:42:00 157.5 cm [facility] Body weight 2021-12-03 19:42:00 68.448 kg [facility] BMI 2021-12-03 19:42:00 27.60 kg/m2 [facility] Procedures Procedure Date / Time Performed Performing Clinicia n Source ASSIGNMENT OF BENEFITS 2023-05-13 21:07:09 Docto r Unassigned, [place] [facility] EXTERNAL PROVIDER - WOMEN'S SERVICES RADIOLOGY 2022-08-11 05:01:00 Doctor Unassigned, [place] [facility] EXTERNAL MAMMOGRAM 2022-08-11 00:00:00 Tessy Fisher [facility] POCT URINALYSIS W/O SPECIFIC GRAVITY 2021-12-03 00:00:00 Noe Fisher [facility] Encounters Start Date/Time End Date/Time Encounter Type Admission Type Attending Clinicians Care Facility Care Department Encounter ID Source 2023-09-20 15:57:00 Outpatient Colton Clark [facility] [id number] [facility] 2021-10-08 13:36:01 Outpatient [facility] [id number] [facility] 2023-11-30 00:00:00 2023-12-01 11:50:52 Telephone Katja Goins [facility] 1.840.114 350.1.13.10 4.2.7.2.686 [id number] [facility] 2023-11-01 15:26:18 2023-11-01 23:59:00 Hospital Encounter Katja Goins [facility] 1.840.114 350.1.13.10 4.2.7.2.686 [id number] [facility] 2023-11-01 15:26:08 2023-11-01 23:59:00 Hospital Encounter Katja Goins [facility] 1.20.114 350.1.13.10 4.2.7.2.686 [id number] [facility] 2023-11-01 15:00:00 2023-11-01 16:43:41 Outpatient R AMBERNATALIA KATJA [facility] [id number] [facility] 2023-11-01 15:00:00 2023-11-01 16:43:41 [facility] 1..114 350.1.13.10 4.2.7.2.686 [id number] [facility] 2023-05-13 15:30:00 2023-05-13 15:47:20 Outpatient R CRUZ-SUSIE S, RICO CRUZ-SUSIE S, RICO [facility] [id number] [facility] 2023-05-13 15:30:00 2023-05-13 15:47:20 Office Visit Patricia-Susie s Rico [facility] 1.114 350.1.13.10 4.2.7.2.686 [id number] [facility] 2023-05-13 00:00:00 2023-05-13 00:00:00 Orders Only Doctor Unassigned, [place] [facility] 1.114 350.1.13.10 4.2.7.2.686 [id number] [facility] 2023-03-26 14:00:00 2023-03-26 14:00:00 Outpatient R CRUZ-SUSIE S, RICO CRUZ-SUSIE S, RICO [facility] [id number] [facility] 2023-03-26 00:00:00 2023-03-26 00:00:00 Telephone Sunil Iris Brad [facility] 1.2.840.114 350.1.13.10 4.2.7.2.686 [id number] [facility] 2023-03-24 00:00:00 2023-03-24 00:00:[address] [facility] 1.2.840.114 350.1.13.10 4.2.7.2.686 [id number] [facility] 2022-08-13 00:00:00 2022-08-13 00:00:00 Abstract Phillip [facility] 1.2.840.114 350.1.13.10 4.2.7.2.686 [id number] [facility] 2022-08-11 00:00:00 2022-08-11 00:00:00 Orders Only Doctor Unassigned, [place] [facility] 1.2.840.114 350.1.13.10 4.2.7.2.686 [id number] [facility] 2022-03-20 11:00:00 2022-03-20 11:35:54 Outpatient R NOE FISHER CHERYAL [facility] [id number] [facility] 2022-03-20 11:00:00 2022-03-20 11:35:54 [facility] 1.2.840.114 350.1.13.10 4.2.7.2.686 [id number] [facility] 2022-03-11 11:15:00 2022-03-11 11:15:00 Outpatient R NOE FISHER CHERYAL [facility] [id number] [facility] 2022-03-04 11:00:00 2022-03-04 11:00:00 Outpatient R PHILLIPRONALDNOE MINER [facility] [id number] [facility] 2022-02-25 13:00:00 2022-02-25 13:00:00 Outpatient R PHILLIPNOE NOE FISHER [facility] [id number] [facility] 2022-02-20 00:00:00 2022-02-20 00:00:[address] [facility] 1.2.840.114 350.1.13.10 4.2.7.2.686 [id number] [facility] 2022-01-26 00:00:00 2022-01-26 00:00:00 Telephone Phillip Noe [facility] 1.2.840.114 350.1.13.10 4.2.7.2.686 [id number] [facility] 2021-12-25 00:00:00 2021-12-25 00:00:[address] [facility] 1.2.840.114 350.1.13.10 4.2.7.2.686 [id number] [facility] 2021-12-08 00:00:00 2021-12-08 00:00:[address] [facility] 1.2.840.114 350.1.13.10 4.2.7.2.686 [id number] [facility] 2021-12-03 14:00:00 2021-12-03 15:01:00 [facility] [id number] 2021-12-03 14:00:00 2021-12-03 15:01:00 Office Visit Noe Fisher [facility] 1.840.114 350.1.13.10 4.2.7.2.686 [id number] [facility] 2021-12-03 14:00:00 2021-12-03 15:01:00 Outpatient R NOE FISHER CHERYAL [facility] [id number] [facility] 2021-12-03 00:00:00 2021-12-03 00:00:00 Orders Only Doctor Unassigned, [place] [facility] 1.84.114 350.1.13.10 4.2.7.2.686 [id number] [facility] 2021-11-24 14:00:00 2021-11-24 14:00:00 Outpatient R ISHAAN TURCIOSN [facility] [id number] [facility] 2021-09-22 00:00:00 2021-09-22 00:00:00 Telephone Ishaan Turciosn [facility] 1.840.114 350.1.13.10 4.2.7.2.686 [id number] [facility] 2021-05-08 13:00:00 2021-05-08 13:00:00 Outpatient R ISHAAN TURCIOSN [facility] [id number] [facility] 2021-05-08 13:00:00 2021-05-08 13:00:00 Outpatient R ISHAAN TURCIOSN [facility] [id number] [facility] 2021-05-07 00:00:00 2021-05-07 00:00:00 Orders Only Doctor Unassigned, [place] [facility] 1.840.114 350.1.13.10 4.2.7.2.686 [id number] [facility] 2021-05-01 00:00:00 2021-05-01 00:00:00 Pre Visit Outreach Carolyn Enriquez 1.2.840.114 350.1.13.10 4.2.7.2.686 [id number] [facility] 2021-04-28 00:00:00 2021-04-28 00:00:00 Pre Visit Outreach Carmen Ortiz 1.2.840.114 350.1.13.10 4.2.7.2.686 [id number] [facility] 2021-03-31 00:00:00 2021-03-31 00:00:00 Orders Only Doctor Unassigned, [place] [facility] 1.2.840.114 350.1.13.10 4.2.7.2.686 [id number] [facility] 2021-03-20 16:00:00 2021-03-20 16:00:00 Outpatient LUIS MARTINEZ [facility] [id number] [facility] 2021-03-20 14:47:12 2021-03-20 15:47:12 Nurse Visit Therapy, [facility] Luis Wise [facility] 1.2840.114 350.1.13.10 4.2.7.2.686 [id number] [facility] 2021-03-20 00:00:00 2021-03-20 00:00:00 Orders Only Doctor Unassigned, [place] [facility] 1.2.840.114 350.1.13.10 4.2.7.2.686 [id number] [facility] 2021-02-11 00:00:00 2021-02-11 00:00:00 Telephone Yeny Turcios [facility] 1.2840.114 350.1.13.10 4.2.7.2.686 [id number] [facility] 2021-02-07 00:00:00 2021-02-07 00:00:00 Case Management Yeny Turcios [facility] 1.2.840.114 350.1.13.10 4.2.7.2.686 [id number] [facility] 2021-02-06 11:40:30 2021-02-06 11:43:20 Nurse Visit Nurse, Jan [facility] 1.2.840.114 350.1.13.10 4.2.7.2.686 [id number] [facility] 2021-02-06 11:25:00 2021-02-06 11:43:20 Outpatient R YENY TURCIOS [facility] [id number] [facility] 2020-12-24 00:00:00 2020-12-24 00:00:00 Telephone [facility] 1.2.840.114 350.1.13.10 4.2.7.2.686 [id number] [facility] 2020-12-24 00:00:00 2020-12-24 00:00:00 Case Management Yeny Turcios [facility] 1.2.840.114 350.1.13.10 4.2.7.2.686 [id number] [facility] 2020-12-19 11:30:00 2020-12-19 12:55:15 Outpatient R SY YENY [facility] [id number] [facility] 2020-12-19 11:38:16 2020-12-19 11:53:16 Nurse Visit Nurse, Jan [facility] 1.2.840.114 350.1.13.10 4.2.7.2.686 [id number] [facility] 2020-12-18 00:00:00 2020-12-18 00:00:00 Yeny Jerome [facility] 1.2.840.114 350.1.13.10 4.2.7.2.686 [id number] [facility] 2020-09-25 00:00:00 2020-09-25 00:00:00 Orders Only Doctor Unassigned, [place] [facility] 1.2.840.114 350.1.13.10 4.2.7.2.686 [id number] [facility] 2020-09-25 00:00:00 2020-09-25 00:00:00 Orders Only Doctor Unassigned, [place] [facility] 1.2.840.114 350.1.13.10 4.2.7.2.686 [id number] 2020-05-07 14:00:00 2020-05-07 14:00:00 Outpatient R YENY TURCIOS [facility] [id number] [facility] 2020-05-07 00:00:00 2020-05-07 00:00:00 Orders Only Doctor Unassigned, [place] [facility] 1.2.840.114 350.1.13.10 4.2.7.2.686 [id number] [facility] 2020-05-07 00:00:00 2020-05-07 00:00:00 Orders Only Doctor Unassigned, [place] [facility] 1.2.840.114 350.1.13.10 4.2.7.2.686 [id number] Results Test Description Test Time Test Comments Results Result Co mments Source [facility]- XR FLUORO [id number] 22:30:00Patient Name: CECI LIZARRAGA Unit No: [id number] EXAMS: CPT CODE: [id number] XR FLUORO NDL [id number] GUIDED LEFT SHOULDER INTRA-ARTICULAR STEROID INJECTION Comment: COMPARISON: No prior exams available. After informed consent was obtained a 25-gauge needle is inserted into the left shoulder joint under fluoroscopic control using sterile technique. 2 mL of Isovue-300 is instilled in to the joint followed by 2 mL of Kenalog 40 mg/ml and 2 mL of lidocaine. The patient tolerated the procedure well. 0.5 minutes of fluoroscopy time was used on this exam. at 2230 Reported and signed by: Shelby Bradley MD CC: Flavio Torres MD Technologist: Oumou Bailey, RT.(R); NORMA WALLER RT(R) Transcribed D/ (2229) [facility] NAME: CECI LIZARRAGA [address] [facility] PHYS: Flavio Connell MD : 1970 AGE: 47 SEX: F [place] [address] LOC: Y.RAD PHONE #: [phone] EXAM DATE: 08/19/2018 STATUS: DEP CLI FAX #: [phone] RAD #: D/C DT PAGE 1 Sign ed Report Patient Name: CECI LIZARRAGA Unit No: [id number] EXAMS: CPT CODE: [id number] XR FLUORONDL 16936 (Continued) Orig Print D/T: S: 08/21/2018 (2232) [facility] NAME: CECI LIZARRAGA [address] [facility] PHYS: Flavio Connell MD : 1970 AGE: 47 SEX: F [place] [address] LOC: Y.RAD PHONE #: [phone] EXAM DATE: 08/19/2018 STATUS: DEP CLI FAX #: [phone] RAD #: D/C DT PAGE 2 Signed Report
[2024-04-08] MEDS ORDERED: KETOROLAC 30 MG/ML INJ ONE (01:39)
[2024-04-08] MEDS ORDERED: ONDANSETRON 4 MG/2 ML VIAL ONE (01:39)
[2024-04-08] MEDS ORDERED: MORPHINE 4 MG/ML SYR ONE (01:40)
[2024-04-08] MEDS ORDERED: NA CHLORIDE 0.9% 1,000 ML ONE ×2 (01:40→03:23)
[2024-04-08] MEDS ORDERED: FAMOTIDINE 20 MG/2 ML VIAL IV ONE (01:40)
[2024-04-08 02:35] LABS: Absolute Lymphocytes (CBC) 0.8 K/uL (0.7-4.9); Absolute Monocytes 0.3 K/uL (0.1-1.3); Absolute Neutrophil 8.9 K/uL (1.8-8.0); Basophils % 0.2 % (0-1.3); Eosinophils % 0.5 % (0-4.4); Hematocrit 43.5 % (36.0-45.0); Hemoglobin 14.3 g/dL (12.0-15.0); MCH 32.7 pg (27.0-35.0); MCV 99.1 fL (80-100); MPV 8.8 fL (7.6-11.3); Monocytes % 3.4 % (3.3-12.3); Neutrophils % 87.9 % (41.7-73.7); Nucleated RBC Absolute Count 0.1 (0-0); Nucleated Red Blood Cells % 0.6 % (0-0); Platelets 333 thou/uL (152-406); RBC Red Blood Cell Count 4.39 M/uL (3.86-4.86); Red Cell Distribution Width 12.9 % (12.1-15.2)
[2024-04-08 02:53] LABS: Albumin 3.8 g/dL (3.4-5.0); Albumin/Globulin Ratio 0.9 (1.1-1.8); Anion Gap 14.5 mEq/L (5.0-15.0); Bilirubin Total 0.7 mg/dL (0.2-1.0); Globulin 4.2 g/dL (2.3-3.5)
[2024-04-08 02:58] LABS: Potassium 4.5 mEq/L (3.5-5.1)
[2024-04-08 04:34] LABS: Band Neutrophils 29 % (0-1); Blood Morphology Comment NOT SEEN (NOT SEEN); Differential Total Cells Count 100; Eosinophils 3 % (0-3); Lymphocytes 6 % (15-42); Metamyelocytes 1 % (0-0); Monocytes 3 % (0-10); Platelet Estimate ADEQ; Reactive Lymphocytes 2 %; Segmented Neutrophils 56 % (40-80)
[2024-04-08] MEDS ORDERED: DICYCLOMINE HCL 10 MG CAP ONE (05:32)
[2024-04-08] MEDS ORDERED: METOCLOPRAMIDE 10 MG/2mL INJ ONE (05:33)
[2024-04-08] MEDS ORDERED: PROMETHAZINE 25 MG TABLET ONE (05:33)
[2024-04-08] MEDS ORDERED: CODEINE 30MG/APAP 300MG TAB ONE (05:33)
--- NOTE | 2024-04-08 07:09 | ER ---
Nurse's Notes [facility] Name: Cindy Lizarraga Age: 53 yrs Sex: Female : 1970 Arrival Date: 04/08/2024 Time: 00:48 Bed 19 Private MD: Diagnosis: Nausea with vomiting, unspecified;Acute gastroenteritis, acute food poisoning Presentation: 04/08 01:00 Chief complaint: EMS states: nausea, vomiting. Coronavirus screen: At this time, the kj2 client does not indicate any symptoms associated with coronavirus-19. Ebola Screen: No symptoms or risks identified at this time. Initial Sepsis Screen: Does the patient meet any 2 criteria? No. Patient's initial sepsis screen is negative. Does the patient have a suspected source of infection? No. Patient's initial sepsis screen is negative. Risk Assessment: Do you want to hurt yourself or someone else? Patient reports no desire to harm self or others. Onset of symptoms was April 08, 2024. 01:00 Method Of Arrival: EMS: [facility] 01:00 Acuity: RAQUEL 3 kj2 Triage Assessment: 01:00 General: Appears uncomfortable, Behavior is cooperative. Pain: Complains of pain in kj2 abdomen Pain currently is 7 out of 10 on a pain scale. Neuro: Level of Consciousness is awake, alert, obeys commands, Oriented to person, place, time, situation. Cardiovascular: Patient's skin is warm and dry. Respiratory: Airway is patent Respiratory effort is unlabored. GI: Reports lower abdominal pain, nausea. : No signs and/or symptoms were reported regarding the genitourinary system. Historical: - Allergies: 01:15 No Known Allergies; kj2 - PMHx: 01:15 Hypertensive disorder; Seizure; kj2 - Immunization history:: Adult Immunizations unknown, . - Infectious Disease History:: Denies. - Social history:: Smoking status: Patient denies any tobacco usage or history of. - Family history:: not pertinent. Screenin:[address] [facility] ED Fall Risk Assessment (Adult) History of falling in the last 3 months, kj2 including since admission No falls in past 3 months (0 pts) Confusion or Disorientation No (0 pts) Intoxicated or Sedated No (0 pts) Impaired Gait No (0 pts) Mobility Assist Device Used No (0 pt) Altered Elimination No (0 pt) Score/Fall Risk Level 0 - 2 = Low Risk Maintained a safe environment, Hourly rounding (assess needs \T\ fall precautionary measures) done. Abuse screen: Denies threats or abuse. Denies injuries from another. Nutritional screening: No deficits noted. Tuberculosis screening: No symptoms or risk factors identified. Assessment: 01:00 General: see triage assessment. Pain: Complains of pain in abdomen Pain currently is 7 kj2 out of 10 on a pain scale. 02:00 Reassessment: Patient appears in no apparent distress at this time. Patient and/or kj2 family updated on plan of care and expected duration. Pain level reassessed. Patient is alert, oriented x 3, equal unlabored respirations, skin warm/dry/pink. 03:00 Reassessment: Patient appears in no apparent distress at this time. Patient and/or kj2 family updated on plan of care and expected duration. Pain level reassessed. Patient is alert, oriented x 3, equal unlabored respirations, skin warm/dry/pink. 04:00 Reassessment: Patient appears in no apparent distress at this time. Patient and/or kj2 family updated on plan of care and expected duration. Pain level reassessed. Patient is alert, oriented x 3, equal unlabored respirations, skin warm/dry/pink. 05:14 Reassessment: Patient appears in no apparent distress at this time. Patient and/or kj2 family updated on plan of care and expected duration. Pain level reassessed. Patient is alert, oriented x 3, equal unlabored respirations, skin warm/dry/pink. 06:15 Reassessment: Patient appears in no apparent distress at this time. Patient and/or kj2 family updated on plan of care and expected duration. Pain level reassessed. Patient is alert, oriented x 3, equal unlabored respirations, skin warm/dry/pink. 06:48 Reassessment: Patient appears in no apparent distress at this time. Patient and/or kj2 family updated on plan of care and expected duration. Pain level reassessed. Patient is alert, oriented x 3, equal unlabored respirations, skin warm/dry/pink. 07:07 Reassessment: report given to YA Burnette. kj2 07:30 Reassessment: Patient and/or family updated on plan of care and expected duration. Pain rs5 level reassessed. Patient is alert, oriented x 3, equal unlabored respirations, skin warm/dry/pink. Vital Signs: 01:00 BP 158 / 136; Pulse 71; Resp 20; Temp 98.6; Pulse Ox 100% ; Weight 68.49 kg; Pain 7/10; kj2 02:00 BP 79 / 50; Pulse 89; Resp 18; Pulse Ox 98% on R/A; kj2 03:33 BP 90 / 63; Pulse 70; Resp 20; Pulse Ox 100% on R/A; kj2 04:30 BP 99 / 63; Pulse 71; Resp 20; Pulse Ox 100% ; kj2 05:30 BP 101 / 63; Pulse 82; Resp 20; Pulse Ox 98% on R/A; kj2 06:25 BP 106 / 70; Pulse 86; Resp 20; kj2 06:49 BP 91 / 51; Pulse 86; Resp 16; Pulse Ox 100% on R/A; kj2 07:10 BP 108 / 63; Pulse 77; Resp 17; Temp 98(O); Pulse Ox 99% on R/A; rs5 01:00 Pain Scale: Adult kj2 Randall Coma Score: 21:10 Eye Response: spontaneous(4). Motor Response: obeys commands(6). Verbal Response: sp4 oriented(5). Total: 15. ED Course: 00:57 Patient arrived in ED. vk 01:00 Patient has correct armband on for positive identification. Bed in low position. Call kj2 light in reach. Adult w/ patient. Provided Education on: call light. 01:00 Arm band placed on Patient placed in an exam room, on a stretcher. kj2 01:05 Missed attempt(s): 20 gauge in left antecubital area. kj2 01:06 Red Alatorre MD is Attending Physician. sp4 01:12 Malou Cornelius, YA is Primary Nurse. kj2 01:15 Triage completed. kj2 01:51 No provider procedures requiring assistance completed. kj2 02:20 Inserted saline lock: 22 gauge in right antecubital area, using aseptic technique. kj2 Blood collected. Flushed with 10 mL NS. 03:10 Influenza Screen (a \T\ B) Sent. vk 03:10 Flu and/or RSV swab sent to lab. vk 07:30 IV discontinued, intact, bleeding controlled, No redness/swelling at site. Pressure rs5 dressing applied. Administered Medications: 02:15 Drug: TORadol - Ketorolac IVP 15 mg IVP once Route: IVP; Site: right antecubital; kj2 05:45 Follow up: Response: No adverse reaction kj2 02:26 Drug: NS 0.9% IV 1000 ml IV at 1 bolus Per protocol; to be given as a bolus over 60 kj2 minutes Route: IV; Rate: 1 bolus; Site: right antecubital; 03:36 Follow up: IV Status: Completed infusion; IV Intake: 1000ml kj2 02:27 Drug: Famotidine IVP 20 mg IVP once; dilute with 10 mL 0.9% NaCl; give over 2 minutes kj2 Route: IVP; Site: right antecubital; 05:45 Follow up: Response: No adverse reaction kj2 02:28 Drug: Ondansetron IVP 4 mg IVP once; over 2 minutes Route: IVP; Site: right antecubital;kj2 05:45 Follow up: Response: No adverse reaction kj2 02:29 Drug: morphine IVP or IV 4 mg IVP once over 4 mins Route: IVP; Infused Over: 4 mins; kj2 Site: right antecubital; 05:45 Follow up: Response: No adverse reaction kj2 05:43 Drug: Dicyclomine PO 20 mg PO once Route: PO; kj2 06:22 Follow up: Response: No adverse reaction kj2 05:44 Drug: NS 0.9% IV 1000 ml IV at 1 bolus Per protocol; to be given as a bolus over 60 kj2 minutes Route: IV; Rate: 1 bolus; Site: right antecubital; 07:00 Follow up: Response: No adverse reaction; IV Status: Completed infusion; IV Intake: rs5 1000ml 05:44 Drug: metoCLOPramide IVP 10 mg IVP once; over 1 to 2 minutes Route: IVP; Site: right kj2 antecubital; 06:22 Follow up: Response: No adverse reaction kj2 05:44 Drug: Promethazine PO 25 mg PO once Route: PO; kj2 06:22 Follow up: Response: No adverse reaction kj2 06:18 Drug: Acetaminophen-Codeine PO (300 mg-30 mg) 2 tabs PO once; RASS on ADMIN: Combtv4, kj2 Very Agttd3, Agttd2, Rstlss1, AlertClm0, Drwsy-1, Lt Sdtn-2, Mod Sdtn-3, Dp Sdtn-4, UnArsble-5 Route: PO; 06:55 Follow up: Response: No adverse reaction; Pain is decreased kj2 Medication: 01:50 VIS not applicable for this client. kj2 Intake: 03:36 IV: 1000ml; Total: 1000ml. kj2 07:00 IV: 1000ml; Total: 2000ml. rs5 Outcome: 07:09 Discharge ordered by . sp4 07:30 Discharged to home via wheelchair, with family, rs5 07:30 Condition: stable rs5 07:30 Discharge instructions given to patient, family, Instructed on discharge instructions, follow up and referral plans. the need for admit, medication usage, Demonstrated understanding of instructions, follow-up care, medications, Prescriptions given X 3, 07:31 Patient left the ED. rs5 Signatures: Vasile Hunter, RN RN rs5 Red Alatorre MD MD spAlexia Greene Krystal, YA RN kj2 Corrections: (The following items were deleted from the chart) 02:28 02:20 NS 0.9% IV 1000 ml IV at 1 bolus in right antecubital kj2 kj2
--- NOTE | 2024-04-08 07:09 | EDPHYS ---
Physician Documentation [facility] Name: Cindy Lizarraga Age: 53 yrs Sex: Female : 1970 Arrival Date: 04/08/2024 Time: 00:48 Bed 19 Private MD: ED Physician Red Alatorre HPI: 04/08 01:07 This 53 yrs old Female presents to ER via Unassigned with unknown complaint. sp4 21:10 Patient presents with acute nausea vomiting . EMS reports patient consumed [employer]aco Ger[employer] sp4 and after that became sick at home with profuse vomiting. Denied diarrhea.. Historical: - Allergies: 01:15 No Known Allergies; kj2 - PMHx: 01:15 Hypertensive disorder; Seizure; kj2 - Immunization history:: Adult Immunizations unknown, . - Infectious Disease History:: Denies. - Social history:: Smoking status: Patient denies any tobacco usage or history of. - Family history:: not pertinent. ROS: 21:10 Constitutional: Negative for fever, chills, and weight loss, positive for nausea sp4 vomiting 21:10 All other systems are negative, Exam: 21:10 Constitutional: This is a well developed, well nourished patient who is awake, alert, sp4 and in no acute distress ill-appearing, generalized pallor but nontoxic. Head/Face: Normocephalic, atraumatic. Eyes: Pupils equal round and reactive to light, extra-ocular motions intact. Lids and lashes normal. Conjunctiva and sclera are not injected. Cornea within normal limits. Periorbital areas with no swelling, redness, or edema. ENT: Nares patent. No nasal discharge, no septal abnormalities noted. Tympanic membranes are normal and external auditory canals are clear. Oropharynx with no redness, swelling, or masses, exudates, or evidence of obstruction, uvula midline. Mucous membranes moist. Neck: Trachea midline, no thyromegaly or masses palpated, and no cervical lymphadenopathy. Supple, full range of motion without nuchal rigidity, or vertebral point tenderness. Chest/axilla: Normal chest wall appearance and motion. Nontender with no deformity. No lesions are appreciated. Cardiovascular: Regular rate and rhythm with a normal S1 and S2. No gallops, murmurs, or rubs. Normal PMI, no JVD. No pulse deficits. Respiratory: Lungs have equal breath sounds bilaterally, clear to auscultation and percussion. No rales, rhonchi or wheezes noted. No increased work of breathing, no retractions or nasal flaring. Abdomen/GI: Soft, with normal bowel sounds. No distension or tympany. No guarding or rebound. No evidence of tenderness throughout. Back: No spinal tenderness. No costovertebral tenderness. Skin: Warm, dry with normal turgor. Pale skin with no rashes, no lesions, and no evidence of cellulitis. MS/ Extremity: Pulses equal, no cyanosis. Neurovascular intact. Full, normal range of motion. Neuro: Awake and alert, GCS 15, oriented to person, place, time, and situation. Cranial nerves II-XII grossly intact. Motor strength 5/5 in all extremities. Sensory grossly intact. Psych: Awake, alert, with orientation to person, place and time. Behavior, mood, and affect are within normal limits Vital Signs: 01:00 BP 158 / 136; Pulse 71; Resp 20; Temp 98.6; Pulse Ox 100% ; Weight 68.49 kg; Pain 7/10; kj2 02:00 BP 79 / 50; Pulse 89; Resp 18; Pulse Ox 98% on R/A; kj2 03:33 BP 90 / 63; Pulse 70; Resp 20; Pulse Ox 100% on R/A; kj2 04:30 BP 99 / 63; Pulse 71; Resp 20; Pulse Ox 100% ; kj2 05:30 BP 101 / 63; Pulse 82; Resp 20; Pulse Ox 98% on R/A; kj2 06:25 BP 106 / 70; Pulse 86; Resp 20; kj2 06:49 BP 91 / 51; Pulse 86; Resp 16; Pulse Ox 100% on R/A; kj2 07:10 BP 108 / 63; Pulse 77; Resp 17; Temp 98(O); Pulse Ox 99% on R/A; rs5 01:00 Pain Scale: Adult kj2 Randall Coma Score: 21:10 Eye Response: spontaneous(4). Motor Response: obeys commands(6). Verbal Response: sp4 oriented(5). Total: 15. MDM: 01:07 Medical Screening Exam initiated sp4 21:13 Differential diagnosis: Nonspecific abd pain, gastritis, viral gastroenteritis, sp4 gastroenteritis. Data reviewed: vital signs, nurses notes, EMS record, old medical records, lab test result(s). Consideration of Admission/Observation Escalation of care including admission/observation considered. ED course: Patient improved after management in the ER. Patient was offered admission for IV hydration. Patient at this time prefers to go home. Advised clear liquid diet and antiemetics. 04/08 01:06 Order name: CBC with Diff; Complete Time: 05:11 sp4 04/08 01:06 Order name: CMP; Complete Time: 03:31 sp4 04/08 01:06 Order name: Lipase; Complete Time: 03:31 sp4 04/08 01:07 Order name: Influenza Screen (a \T\ B); Complete Time: 05:11 sp4 04/08 02:59 Order name: Manual Differential; Complete Time: 05:11 EDMS 04/08 01:06 Order name: IV Saline Lock; Complete Time: 02:29 sp4 04/08 01:06 Order name: Labs collected and sent; Complete Time: 02:29 sp4 Administered Medications: 02:15 Drug: TORadol - Ketorolac IVP 15 mg IVP once Route: IVP; Site: right antecubital; kj2 05:45 Follow up: Response: No adverse reaction kj2 02:26 Drug: NS 0.9% IV 1000 ml IV at 1 bolus Per protocol; to be given as a bolus over 60 kj2 minutes Route: IV; Rate: 1 bolus; Site: right antecubital; 03:36 Follow up: IV Status: Completed infusion; IV Intake: 1000ml kj2 02:27 Drug: Famotidine IVP 20 mg IVP once; dilute with 10 mL 0.9% NaCl; give over 2 minutes kj2 Route: IVP; Site: right antecubital; 05:45 Follow up: Response: No adverse reaction kj2 02:28 Drug: Ondansetron IVP 4 mg IVP once; over 2 minutes Route: IVP; Site: right antecubital;kj2 05:45 Follow up: Response: No adverse reaction kj2 02:29 Drug: morphine IVP or IV 4 mg IVP once over 4 mins Route: IVP; Infused Over: 4 mins; kj2 Site: right antecubital; 05:45 Follow up: Response: No adverse reaction kj2 05:43 Drug: Dicyclomine PO 20 mg PO once Route: PO; kj2 06:22 Follow up: Response: No adverse reaction kj2 05:44 Drug: NS 0.9% IV 1000 ml IV at 1 bolus Per protocol; to be given as a bolus over 60 kj2 minutes Route: IV; Rate: 1 bolus; Site: right antecubital; 07:00 Follow up: Response: No adverse reaction; IV Status: Completed infusion; IV Intake: rs5 1000ml 05:44 Drug: metoCLOPramide IVP 10 mg IVP once; over 1 to 2 minutes Route: IVP; Site: right kj2 antecubital; 06:22 Follow up: Response: No adverse reaction kj2 05:44 Drug: Promethazine PO 25 mg PO once Route: PO; kj2 06:22 Follow up: Response: No adverse reaction kj2 06:18 Drug: Acetaminophen-Codeine PO (300 mg-30 mg) 2 tabs PO once; RASS on ADMIN: Combtv4, kj2 Very Agttd3, Agttd2, Rstlss1, AlertClm0, Drwsy-1, Lt Sdtn-2, Mod Sdtn-3, Dp Sdtn-4, UnArsble-5 Route: PO; 06:55 Follow up: Response: No adverse reaction; Pain is decreased kj2 Disposition: 21:15 Chart complete. sp4 Disposition Summary: 04/08/24 07:09 Discharge Ordered Notes: Location: Home sp4 Problem: new sp4 Symptoms: have improved sp4 Condition: Stable sp4 Diagnosis - Nausea with vomiting, unspecified sp4 - Acute gastroenteritis, acute food poisoning sp4 Followup: sp4 - With: Private Physician - When: 7 - 10 days - Reason: Recheck today's complaints Discharge Instructions: - Discharge Summary Sheet sp4 - Clear Liquid Diet, Adult, [id number] sp4 Forms: - Patient Portal Instructions sp4 Prescriptions: - acetaminophen-codeine 300-60 mg Oral tablet - take 1 tablet ORAL route every 8 hours PRN pain; 12 tablet; Refills: 0, Product sp4 Selection Permitted - promethazine 25 mg Oral tablet - take 1 tablet ORAL route every 6 hours As needed PRN nausea; 30 tablet; sp4 Refills: 0, Product Selection Permitted - ondansetron 8 mg Oral Tablet,disintegrating - take 1 tablet ORAL route every 8 hours PRN nausea; 30 tablet; Refills: 0, sp4 Product Selection Permitted Signatures: Dispatcher [employer] EDMS Red Alatorre MD MD sp4 Malou Cornelius RN RN kj2 Vasile Hunter RN rs5 Corrections: (The following items were deleted from the chart) 01:07 01:07 CBC+H.LAB.BRZ ordered. EDMS EDMS 01:07 01:07 COMPREHENSIVE METABOLIC PANEL+C.LAB.BRZ ordered. EDMS EDMS 01:07 01:07 LIPASE+C.LAB.BRZ ordered. EDMS EDMS 01:07 01:07 Influenza Screen (A \T\ B)+BA.LAB.BRZ ordered. EDMS EDMS 06:21 01:07 Urinalysis+U.LAB.BRZ ordered. EDMS EDMS
[2024-04-08 08:07] VITALS: BP 108/63; TEMP 98; O2SAT 99
== END 2024-04-08 07:31 | disposition home or self-care (01) ==
LOC: ER 00:48
DX: A05.9 Bacterial foodborne intoxication, unspecified (principal)
CPT/HCPCS: 96361; 85025; 36415; 83690; 80053; 87804 ×2; 96375; 96374; 99284; Q0169; J2765; J2405; J7030 ×2

== ENCOUNTER 2024-04-08 11:25 | Inpatient (IN) | payer OTHER ==
--- OUTSIDE RECORDS SUMMARY | 2024-04-08 11:31 | XMS REPORT | Continuity of Care Document ---
Author Name Unknown Address [address] [place] [address] [facility] Address [address] [facility] [address] [place] [address] Care Team Providers Care Cable Dispatcher Name Role Phone Pcp, Patient Does Not Have A Primary Care Physic laurie Colton Clark Attending Clinician Unavailable RICO SKELTON Attending Clinician RICO Del Cid Attending Clinician Pio Goins MD, Katja Attending Clinician [phone] Katja Goins MD Attending Clinician [phone] KATJA GOINS Attending Clinician Unavailchinedu e Doctor Unassigned, [place] Attending Clinician U lily Barber MD, Iris Salinas Attending Clinician [phone] Noe Fisher NP Attending Clinician NOE Pelletier Attending Clinician UnavailYENY Laguna Attending Clinician Unavailable Yeny Turcios MD Attending Clinician [phone] Carolyn Fairbanks MA Attending Clinician UnavailCarmen Steward MA Attending Clinician UnavailLUIS Rock Attending Clinician Unavailable Therapy, [facility] Attending Clinician Unavailable Luis Greene MD Attending Clinician [phone] Nurse, [facility] Attending Clinician Unavailable Payers Payer Name Policy Type Policy Number Effective Date Expirati on Date Source Problems Condition Name Condition Details Condition Category Status Onset Date Resolution Date Last Treatment Date Treating Clinician Comments Source Essential hypertensi on Essential hypertensi on Disease Active 2021-04 00:00: 00 [facility] Epileptic seizure Epileptic seizure Disease Active 2021-04 00:00: 00 [facility] Hyperlipid emia, unspecifie d hyperlipid emia type Hyperlipid emia, unspecifie d hyperlipid emia type Disease Active 2021-04 00:00: 00 [facility] Migraine Migraine Disease Active 2021-04 00:00: 00 [facility] Muscle spasm Muscle spasm Disease Active 2021-04 00:00: 00 [facility] Generalize d anxiety disorder Generalize d anxiety disorder Disease Active 2021-04 00:00: 00 [facility] Epileptic seizure Epileptic seizure Disease Active 2021-04 00:00: 00 [facility] Breast cancer screening by mammogram Breast cancer screening by mammogram Disease Active 12-03 00:00: 00 [facility] Menopausal and female climacteri c states Menopausal and female climacteri c states Disease Active 12-03 00:00: 00 [facility] Dysuria Dysuria Disease Active 12-03 00:00: 00 [facility] Need for vaccinatio n Need for vaccinatio n Disease Active 12-03 00:00: 00 [facility] Abnormal finding on urinalysis Abnormal finding on urinalysis Disease Active 12-03 00:00: 00 [facility] Osteopenia , unspecifie d location Osteopenia , unspecifie d location Disease Active 05-07 00:00: 00 [facility] Allergies, Adverse Reactions, Alerts Allergy Name Allergy Type Status Severity Reaction(s) Onset Date Inactive Date Treating Clinician Comments Source No Known Allergie s DA Active U 08-19 00:00: 00 [facility] No Known Allergie s DA Active U 05-06 00:00: 00 [facility] NO KNOWN ALLERGIE S Drug Class Active [facility] Social History Social Habit Start Date Stop Date Quantity Comments Source History SDOH Alcohol Comment [place] [facility] History SDOH Alcohol Std [facility] History SDOH Alcohol Binge [facility] intake 2023-05-13 00:00:00 2023-05-13 00:00:00 Lifetime non-drinker (finding) [facility] Alcoholic beverage intake 2023-05-13 00:00:00 2023-05-13 00:00:00 Lifetime non-drinker (finding) [facility] Tobacco use and exposure 2021-12-03 00:00:00 2021-12-03 00:00:00 Smokeless tobacco non-user [facility] History SDOH Alcohol Frequency 2020-05-07 00:00:00 2020-05-07 00:00:00 1 [facility] History of Social function 2020-05-07 00:00:00 2020-05-07 00:00:00 [facility] Sex assigned at 1970 00:00:00 1970 00:00:00 [facility] Smoking Status Start Date Stop Date Source Never smoked tobacco [facility] Medications Ordered Medication Name Filled Medication Name Start Date Stop Date Current Medication? Ordering Clinician Indication Dosage Frequency Signature (SIG) Comments Components Source acetaminoph en-codeine 300-30 mg tablet 715 00:00: 00 11-08 04:59 :00 No 4647 1{tbl} Take 1 tablet by mouth every 4 (four) hours as needed for Pain (scale 7-10) for up to 7 days. Indication s: acute pain [facility] buPROPion SR (WELLBUTRIN SR) 100 mg SR tablet 1 00:00: 00 Yes [id number] 100mg Take 1 tablet by mouth in the morning. [facility] buPROPion SR (WELLBUTRIN SR) 100 mg SR tablet 2022-04-08 00:00: 00 05-13 00:00 :00 No [id number] 100mg Take 1 tablet by mouth in the morning. [facility] dicyclomine 20 mg tablet 2021-04 11:22: 57 Yes 20mg Take 20 mg by mouth. [facility] polyethylen e glycol 3350 17 gram powder 2021-04 11:22: 57 Yes 17g Take 17 g by mouth. [facility] buPROPion SR (WELLBUTRIN SR) 100 mg SR tablet 2021-04 00:00: 00 03-26 00:00 :00 No [id number] 100mg Take 1 tablet by mouth in the morning. [facility] Dexlansopra zole 60 mg capsule 12-03 14:46: 32 Yes Take by mouth. [facility] dicyclomine 20 mg tablet 12-03 14:46: 32 Yes 20mg Take 20 mg by mouth. [facility] mirabegron 50 mg tablet 12-03 14:46: 32 Yes Take by mouth. [facility] polyethylen e glycol 3350 17 gram powder 12-03 14:46: 32 Yes 17g Take 17 g by mouth. [facility] buPROPion SR (WELLBUTRIN SR) 100 mg SR tablet 12-03 00:00: 00 03-20 00:00 :00 No [id number] 100mg Take 1 tablet by mouth in the morning and 1 tablet in the evening. [facility] Nitrofurant oin&Nit. Macrocryst (MACROBID) 100 mg capsule 12-03 00:00: 00 12-11 04:59 :00 No [id number] 100mg Take 1 capsule by mouth in the morning and 1 capsule in the evening. Do all this for 7 days. [facility] traMADoL 50 mg tablet 2020-04 1 00:00: 00 Yes [facility] proMETHazin e 25 mg tablet 2020-04 0- 00:00: 00 Yes [facility] acyclovir 400 mg tablet 2020-04 0- 00:00: 00 Yes [facility] estradioL 0.5 mg tablet 05-28 00:00: 00 12-03 00:00 :00 No [id number] .5mg Take 1 tablet by mouth daily. [facility] propranoloL 80 mg tablet 05-07 14:37: 12 Yes 80mg Take 80 mg by mouth 2 (two) times daily. [facility] divalproex ER 500 mg 24 hr tablet 05-07 14:37: 12 Yes 500mg Take 500 mg by mouth every 24 (twenty-fo ur) hours. [facility] ALPRAZolam 1 mg tablet 2019-04 00:00: 00 Yes TAKE 1 TABLET BY MOUTH FOUR TIMES A DAY [facility] atorvastati n 10 mg tablet 2019-04 00:00: 00 Yes 10mg Take 10 mg by mouth daily. [facility] amitriptyli ne 50 mg tablet 2019-04 00:00: 00 Yes 50mg Take 50 mg by mouth daily. [facility] lisinopriL 10 mg tablet 2019-04 00:00: 00 Yes 10mg Take 10 mg by mouth daily. [facility] butalbital- acetaminoph en-caff 50-325-40 mg tablet 2019-04 00:00: 00 Yes TAKE 1 TABLET BY MOUTH 3 TIMES A DAY [facility] tiZANidine 2 mg tablet 2019-04 00:00: 00 Yes TAKE 1 TABLET BY MOUTH THREE TIMES A DAY NEEDED [facility] Vital Signs Vital Name Observation Time Observation Value Comments S faith Systolic blood pressure 2023-11-01 20:25:00 150 mm[Hg] [facility] Diastolic blood pressure 2023-11-01 20:25:00 92 mm[Hg] [facility] Heart rate 2023-11-01 20:25:00 96 /min [facility] Body temperature 2023-11-01 20:25:00 36.33 Jailyn [facility] Body height 2023-11-01 20:25:00 160 cm [facility] Body weight 2023-11-01 20:25:00 75.705 kg [facility] BMI 2023-11-01 20:25:00 29.57 kg/m2 Univ [facility] Systolic blood pressure 2023-05-13 21:28:00 136 mm[Hg] [place] [facility] Diastolic blood pressure 2023-05-13 21:28:00 87 mm[Hg] [facility] Heart rate 2023-05-13 21:28:00 93 /min Un[facility] Body temperature 2023-05-13 21:28:00 36.72 Jailyn [facility] Respiratory rate 2023-05-13 21:28:00 16 /min [facility] Body height 2023-05-13 21:28:00 162.6 cm [facility] Body weight 2023-05-13 21:28:00 74.844 kg Univ [facility] BMI 2023-05-13 21:28:00 28.32 kg/m2 [facility] Systolic blood pressure 2022-03-20 17:22:00 141 mm[Hg] [facility] Diastolic blood pressure 2022-03-20 17:22:00 82 mm[Hg] [facility] Heart rate 2022-03-20 17:21:00 90 /min [facility] Body temperature 2022-03-20 17:21:00 36.72 Jailyn [facility] Body height 2022-03-20 17:21:00 157.5 cm [facility] weight 2022-03-20 17:21:00 68.72 kg Univ [facility] BMI 2022-03-20 17:21:00 27.71 kg/m2 [facility] Systolic blood pressure 2021-12-03 19:44:00 148 mm[Hg] [facility] Diastolic blood pressure 2021-12-03 19:44:00 95 mm[Hg] [facility] Heart rate 2021-12-03 19:42:00 103 /min Un[facility] Body temperature 2021-12-03 19:42:00 36.72 Jailyn [facility] Respiratory rate 2021-12-03 19:42:00 18 /min [facility] Body height 2021-12-03 19:42:00 157.5 cm [facility] Body weight 2021-12-03 19:42:00 68.448 kg [facility] BMI 2021-12-03 19:42:00 27.60 kg/m2 [facility] Procedures Procedure Date / Time Performed Performing Clinicia n Source ASSIGNMENT OF BENEFITS 2023-05-13 21:07:09 Docto r Unassigned, [place] [facility] EXTERNAL PROVIDER - WOMEN'S SERVICES RADIOLOGY 2022-08-11 05:01:00 Doctor Unassigned, [place] [facility] EXTERNAL MAMMOGRAM 2022-08-11 00:00:00 Tessy Fisher [facility] POCT URINALYSIS W/O SPECIFIC GRAVITY 2021-12-03 00:00:00 Noe Fisher [facility] Encounters Start Date/Time End Date/Time Encounter Type Admission Type Attending [facility] Care Facility Care Department Encounter ID Source 2023-09-20 15:57:00 Outpatient Clark, [place] [id number] [facility] 2021-10-08 13:36:01 [facility]patient [facility] [id number] [facility] 2023-11-30 00:00:00 2023-12-01 11:50:52 Telephone Katja Goins [facility] 1..840.114 350.1.13.10 4.2.7.2.686 [id number] [facility] 2023-11-01 15:26:18 2023-11-01 23:59:00 Hospital Encounter Katja Goins [facility] ..840.114 350.1.13.10 4.2.7.2.686 [id number] [facility] 2023-11-01 15:26:08 2023-11-01 23:59:00 Hospital Encounter Katja Goins [facility] 1.2840.114 350.1.13.10 4.2.7.2.686 [id number] [facility] 2023-11-01 15:00:00 2023-11-01 16:43:41 Outpatient R EDMARTAVONKATJA FLOREZ [facility] [id number] [facility] 2023-11-01 15:00:00 2023-11-01 16:43:41 Office Visit Katja Goins [facility] 1.2840.114 350.1.13.10 4.2.7.2.686 [id number] [facility] 2023-05-13 15:30:00 2023-05-13 15:47:20 Outpatient R PATRICIA-SUSIE S, RICO CRUZ-SUSIE S, RICO [facility] [id number] [facility] 2023-05-13 15:30:00 2023-05-13 15:47:20 Office Visit Patricia-Susie Kadie rodriguezsol [facility] 1.2840.114 350.1.13.10 4.2.7.2.686 [id number] [facility] 2023-05-13 00:00:00 2023-05-13 00:00:00 Orders Only Doctor Unassigned, [place] [facility] 1.2.840.114 350.1.13.10 4.2.7.2.686 [id number] [facility] 2023-03-26 14:00:00 2023-03-26 14:00:00 Outpatient R CRUZ-SUSIE S, RICO CRUZ-SUSIE S, RICO [facility] [id number] [facility] 2023-03-26 00:00:00 2023-03-26 00:00:[address] [facility] 1.2.840.114 350.1.13.10 4.2.7.2.686 [id number] [facility] 2023-03-24 00:00:00 2023-03-24 00:00:[address] [facility] 1.2.840.114 350.1.13.10 4.2.7.2.686 [id number] [facility] 2022-08-13 00:00:00 2022-08-13 00:00:00 Abstract Phillip [place] [facility] 1.2.840.114 350.1.13.10 4.2.7.2.686 [id number] [facility] 2022-08-11 00:00:00 2022-08-11 00:00:00 Orders Only Doctor Unassigned, [place] [facility] 1.2.840.114 350.1.13.10 4.2.7.2.686 [id number] [facility] 2022-03-20 11:00:00 2022-03-20 11:35:54 Outpatient R NOE FISHER CHERYAL [facility] [id number] [facility] 2022-03-20 11:00:00 2022-03-20 11:35:54 Office Visit Noe Fisher [facility] 1.2.840.114 350.1.13.10 4.2.7.2.686 [id number] [facility] 2022-03-11 11:15:00 2022-03-11 11:15:00 Outpatient R NOE FISHER CHERYAL [facility] [id number] [facility] 2022-03-04 11:00:00 2022-03-04 11:00:00 Outpatient R PHILLIP NOE MCLAUGHLIN [facility] [id number] [facility] 2022-02-25 13:00:00 2022-02-25 13:00:00 Outpatient R BRADNOE SANDERSON BRADNOE SANDERSON [facility] [id number] [facility] 2022-02-20 00:00:00 2022-02-20 00:00:[address] [facility] 1.2.840.114 350.1.13.10 4.2.7.2.686 [id number] [facility] 2022-01-26 00:00:00 2022-01-26 00:00:00 [facility] 1.2.840.114 350.1.13.10 4.2.7.2.686 [id number] [facility] 2021-12-25 00:00:00 2021-12-25 00:00:[address] [facility] 1.2.840.114 350.1.13.10 4.2.7.2.686 [id number] [facility] 2021-12-08 00:00:00 2021-12-08 00:00:[address] [facility] 1.2.840.114 350.1.13.10 4.2.7.2.686 [id number] [facility] 2021-12-03 14:00:00 2021-12-03 15:01:00 Outpatient R PHILLIP NOE FISHER TARAGASTON [facility] [id number] [facility] 2021-12-03 14:00:00 2021-12-03 15:01:00 Office Visit Noe Fihser [facility] 1.2.840.114 350.1.13.10 4.2.7.2.686 [id number] [facility] 2021-12-03 14:00:00 2021-12-03 15:01:00 Outpatient R NOE FISHER CHERYAL [facility] [id number] [facility] 2021-12-03 00:00:00 2021-12-03 00:00:00 Orders Only Doctor Unassigned, [place] [facility] 1.840.114 350.1.13.10 4.2.7.2.686 [id number] [facility] 2021-11-24 14:00:00 2021-11-24 14:00:00 Outpatient ISHAAN PAYANN [facility] [id number] [facility] 2021-09-22 00:00:00 2021-09-22 00:00:00 Telephone Tam Yeny [facility] 1.840.114 350.1.13.10 4.2.7.2.686 [id number] [facility] 2021-05-08 13:00:00 2021-05-08 13:00:00 Outpatient ISHAAN PAYANN [facility] [id number] [facility] 2021-05-08 13:00:00 2021-05-08 13:00:00 Outpatient Ugo TURCIOS YENY [facility] [id number] [facility] 2021-05-07 00:00:00 2021-05-07 00:00:00 Orders Only Doctor Unassigned, [place] [facility] 1.840.114 350.1.13.10 4.2.7.2.686 [id number] [facility] 2021-05-01 00:00:00 2021-05-01 00:00:00 Pre Visit Outreach Carolyn Enriquez 1.2.840.114 350.1.13.10 4.2.7.2.686 [id number] [facility] 2021-04-28 00:00:00 2021-04-28 00:00:00 Pre Visit Outreach Carmen Ortiz 1.2.840.114 350.1.13.10 4.2.7.2.686 [id number] [facility] 2021-03-31 00:00:00 2021-03-31 00:00:00 Orders Only Doctor Unassigned, [place] [facility] 1.2.840.114 350.1.13.10 4.2.7.2.686 [id number] [facility] 2021-03-20 16:00:00 2021-03-20 16:00:00 Outpatient LUIS MARTINEZ [facility] [id number] [facility] 2021-03-20 14:47:12 2021-03-20 15:47:12 Nurse Visit Therapy, Adc Covid Luis Oscar [facility] 1.2.840.114 350.1.13.10 4.2.7.2.686 [id number] [facility] 2021-03-20 00:00:00 2021-03-20 00:00:00 Orders Only Doctor Unassigned, [place] [facility] 1.2.840.114 350.1.13.10 4.2.7.2.686 [id number] [facility] 2021-02-11 00:00:00 2021-02-11 00:00:00 Telephone Yeny Turcios [facility] 1.2.840.114 350.1.13.10 4.2.7.2.686 [id number] [facility] 2021-02-07 00:00:00 2021-02-07 00:00:00 Case Management Yeny Turcios [facility] 1.2840.114 350.1.13.10 4.2.7.2.686 [id number] [facility] 2021-02-06 11:40:30 2021-02-06 11:43:20 Nurse Visit Nurse, Jan [facility] 1.2.840.114 350.1.13.10 4.2.7.2.686 [id number] [facility] 2021-02-06 11:25:00 2021-02-06 11:43:20 Outpatient R YENY TURCIOS [facility] [id number] [facility] 2020-12-24 00:00:00 2020-12-24 00:00:[address] [facility] 1.2840.114 350.1.13.10 4.2.7.2.686 [id number] [facility] 2020-12-24 00:00:00 2020-12-24 00:00:00 Case Management Yeny Turcios [facility] 1.2840.114 350.1.13.10 4.2.7.2.686 [id number] [facility] 2020-12-19 11:30:00 2020-12-19 12:55:15 Outpatient R YENY TURCIOS [facility] [id number] [facility] 2020-12-19 11:38:16 2020-12-19 11:53:16 Nurse Visit Nurse, Jan [facility] 1.2840.114 350.1.13.10 4.2.7.2.686 [id number] [facility] 2020-12-18 00:00:00 2020-12-18 00:00:00 Yeny Jerome [facility] 1.2.840.114 350.1.13.10 4.2.7.2.686 [id number] [facility] 2020-09-25 00:00:00 2020-09-25 00:00:00 Orders Only Doctor Unassigned, [place] [facility] 1.2.840.114 350.1.13.10 4.2.7.2.686 [id number] [facility] 2020-09-25 00:00:00 2020-09-25 00:00:00 Orders Only Doctor Unassigned, [place] [facility] 1.2.840.114 350.1.13.10 4.2.7.2.686 [id number] 2020-05-07 14:00:00 2020-05-07 14:00:00 Outpatient R YENY TURCIOS [facility] [id number] [facility] 2020-05-07 00:00:00 2020-05-07 00:00:00 Orders Only Doctor Unassigned, [place] [facility] 1.2.840.114 350.1.13.10 4.2.7.2.686 [id number] [facility] 2020-05-07 00:00:00 2020-05-07 00:00:00 Orders Only Doctor Unassigned, [place] [facility] 1.2.840.114 350.1.13.10 4.2.7.2.686 [id number] Results Test Description Test Time Test Comments Results Result Co mments Source [facility]- XR FLUORO [id number] 22:30:00Patient Name: CECI LIZARRAGA Unit No: [id number] EXAMS: CPT CODE: [id number] XR FLUORO NDL [id number] GUIDED LEFT SHOULDER INTRA-ARTICULAR STEROID INJECTION Comment: COMPARISON: No prior exams available. After informed consent was obtained a 25-gauge needle is inserted into the leftshoulder joint under fluoroscopic control using sterile technique. 2 mL of Isovue-300 is instilled i nto the joint followed by 2 mL of Kenalog 40 mg/ml and 2 mL of lidocaine. The patient tolerated theprocedure well. 0.5 minutes of fluoroscopy time was used on this exam. at 2230 Reported and signed by: Shelby Bradley MD CC: Flavio Torres MD Technologist: Oumou Bailey, RT.(R); NORMA WALLER RT(R) Transcribed D/ (2229) [email or web address] [facility] NAME: CECI LIZARRAGA [address] [facility] PHYS: Flavio Connell MD : 1970 AGE: 47 SEX: F [place] [address] LOC: Y.RAD PHONE #: [phone] EXAM DATE: 08/19/2018 STATUS: DEP CLI FAX #: [phone] RAD #: D/C DT PAGE 1 Si gned Report Patient Name: CECI LIZARRAGA Unit No: [id number] EXAMS: CPT CODE: [id number] XR FLUORO NDL [id number] (Continued) Orig Print D/T: S: 08/21/2018 (2232) [facility] NAME: CECI LIZARRAGA [id number] [facility] PHYS: Flavio Connell MD : 1970 AGE: 47 SEX: F [place] [address] LOC: Y.RAD PHONE #: [phone] EXAM DATE: 08/19/2018 STATUS: DEP CLI FAX #: [phone] RAD #: D/C DT PAGE 2 Signed Report
[2024-04-08] MEDS ORDERED: NA CHLORIDE 0.9% 2,000 ML ONE (11:49)
[2024-04-08 12:24] LABS: Absolute Lymphocytes (CBC) 0.7 K/uL (0.7-4.9); Absolute Monocytes 0.4 K/uL (0.1-1.3); Absolute Neutrophil 7.4 K/uL (1.8-8.0); Basophils % 0.3 % (0-1.3); Hematocrit 38.8 % (36.0-45.0); Hemoglobin 12.5 g/dL (12.0-15.0); Lymphocytes % 8.6 % (15.3-44.8); MCH 32.1 pg (27.0-35.0); MCHC 32.1 g/dL (32.0-36.0); MCV 99.9 fL (80-100); MPV 8.4 fL (7.6-11.3); Monocytes % 4.6 % (3.3-12.3); Neutrophils % 86.5 % (41.7-73.7); Platelets 280 thou/uL (152-406); RBC Red Blood Cell Count 3.88 M/uL (3.86-4.86); Red Cell Distribution Width 13.2 % (12.1-15.2)
[2024-04-08 12:42] LABS: Albumin 3.1 g/dL (3.4-5.0); Albumin/Globulin Ratio 0.8 (1.1-1.8); Anion Gap 14.4 mEq/L (5.0-15.0); Bilirubin Total 0.7 mg/dL (0.2-1.0); Globulin 3.7 g/dL (2.3-3.5); Potassium 4.4 mEq/L (3.5-5.1); Protein, Total 6.8 g/dL (6.4-8.2)
[2024-04-08] MEDS ORDERED: FENTANYL CITR 100 MCG/2 ML ONE ×2 (13:09→17:46)
[2024-04-08 13:14] LABS: Band Neutrophils 36 % (0-1); Blood Morphology Comment NOT SEEN (NOT SEEN); Differential Total Cells Count 100; Lymphocytes 16 % (15-42); Monocytes 4 % (0-10); Platelet Estimate ADEQ; Segmented Neutrophils 44 % (40-80)
--- NOTE | 2024-04-08 13:57 | RAD REPORT ---
EXAMINATION: CT ABDOMEN AND PELVIS WITHOUT CONTRAST CLINICAL INDICATION: Female, 53 years old.ABD PAIN TECHNIQUE: CT abdomen and pelvis was performed, without IV contrast, as per department protocol. Axia l, sagittal and coronal reconstructions were obtained. One or more of the following dose reduction techniques were used: Automated exposure control, adjustment of the mA and/or kV according to the pat ient size, and/or iterative reconstruction. Unless otherwise specified, incidental findings do not require dedicated imaging follow-up. [id number]. IV CONTRAST: Not administered. COMPARISON: 10/31/2020 FINDINGS: The lack of intravenous contrast limits the sensitivity of this exam for evaluation of solid visceral organs, vascular structures, and retroperitoneum. LOWER CHEST: Coronary artery calcifications. Small hiatal hernia. LIVER: Normal in size and contour. No focal lesion. GALLBLADDER/BILE DUCTS: Distended but otherwise unremarkable.? PANCREAS: No mass, ductal dilation, or alysia-pancreatic fluid. SPLEEN: Normal size. No focal lesion. ADRENALS: Normal; no mass. KIDNEYS AND URETERS: Normal size and contour. No hydronephrosis. URINARY BLADDER: Normal contour. GASTROINTESTINAL TRACT: Large volume of stool in the colon. There is wall thickening at the mid trans verse colon through the proximal sigmoid. The colon is distended measuring up to 6 cm. PERITONEUM: Mild abdominal pelvic free fluid. ABDOMINAL AORTA AND OTHER VESSELS: Normal caliber aorta and IVC. REPRODUCTIVE ORGANS: No pathologic process. MUSCULOSKELETAL: No acute or suspicious osseous abnormality. Multilevel degenerative changes are pres ent in the spine. ADDITIONAL FINDINGS: None. IMPRESSION: Moderate to large volume of formed stool in the colon with wall thickening that extends from about th e mid transverse colon through the proximal sigmoid. This is concerning for a colitis. Small volume of abnormal but nonspecific abdominopelvic free fluid.
--- NOTE | 2024-04-08 14:04 | EDPHYS ---
Physician Documentation [facility] Name: Cindy Lizarraga Age: 53 yrs Sex: Female : 1970 Arrival Date: 04/08/2024 Time: 11:25 Bed 8 Private MD: ED Physician Rubens Soliman HPI: 04/08 11:51 This 53 yrs old Female presents to ER via EMS with complaints of abdominal pain. sb4 12:42 The patient presents with abdominal pain that is diffuse. Onset: The symptoms/episode sb4 began/occurred last night. The symptoms radiate to back. Associated signs and symptoms: Pertinent positives: nausea, vomiting, and diarrhea. The symptoms are described as crampy. abdominal pain, abdominal cramping, nausea, vomiting, and diarrhea since last night after marcie weems. was seen here early this morning, diagnosed with food poisoning, discharged home. states the pain has persisted. Historical: - Allergies: 11:43 No Known Allergies; iw - Home Meds: 11:47 amitriptyline 50 mg Oral tab daily [Active]; atorvastatin 10 mg Oral tab daily iw [Active]; divalproex 500 mg Oral Tb24 [Active]; lisinopril 10 mg Oral tab daily [Active]; propranolol 80 mg Oral Cs24 daily [Active]; tizanidine 2 mg oral tablet once daily at bedtime [Active]; Fioricet 50-300-40 mg Oral capsule as needed [Active]; Dexilant 60 mg oral capsule,delayed release,biphasic daily [Active]; alprazolam 1 mg Oral tablet 3 times per day [Active]; bupropion HCl 100 mg Oral tablet, sustained-release 12 hr daily [Active]; - PMHx: 11:43 Hypertensive disorder; Seizure; iw - PSHx: 11:43 Total abdominal hysterectomy; iw - Immunization history:: Adult Immunizations not up to date. - Infectious Disease History:: Denies. - Social history:: Smoking status: Patient denies any tobacco usage or history of. ROS: 12:42 Constitutional: Negative for fever, chills, and weight loss, sb4 12:42 Abdomen/GI: Positive for abdominal pain, nausea, vomiting, and diarrhea, 12:42 All other systems are negative, Exam: 12:42 Head/Face: Normocephalic, atraumatic. Eyes: Extra-ocular motions intact. Periorbital sb4 areas with no swelling, redness, or edema. Respiratory: No increased work of breathing, no retractions or nasal flaring. Skin: Warm, dry with normal turgor. Normal color with no rashes, no lesions, and no evidence of cellulitis. 12:42 Constitutional: The patient appears alert, awake, obviously ill, pale, uncomfortable, 12:42 Cardiovascular: Rate: tachycardic, Rhythm: regular, 12:42 Abdomen/GI: Inspection: abdomen appears normal, Bowel sounds: normal, Palpation: soft, mild abdominal tenderness, in all quadrants, Vital Signs: 11:42 BP 85 / 56; Pulse 102; Resp 16; Temp 98.1; Pulse Ox 100% on R/A; Weight 70.76 kg; iw Height 5 ft. 4 in. ; Pain 10/10; 12:25 BP 94 / 67; Pulse 106; Resp 18 S; Pulse Ox 100% on R/A; aa5 13:00 BP 107 / 71; Pulse 105; Resp 16 S; Pulse Ox 100% on R/A; aa5 14:00 BP 135 / 93; Pulse 113; Resp 20 S; Pulse Ox 99% on R/A; aa5 14:43 BP 126 / 72; Pulse 114; Resp 18 S; Temp 99.1(O); Pulse Ox 99% on R/A; aa5 16:00 BP 91 / 50; Pulse 113; Resp 18 S; Pulse Ox 100% on R/A; aa5 16:10 BP 98 / 66; Pulse 116; Resp 18 S; Pulse Ox 99% on R/A; aa5 16:20 Temp 99.1(O); aa5 16:20 BP 85 / 45; Pulse 116; Resp 20 S; Pulse Ox 98% on R/A; aa5 16:40 BP 111 / 67; Pulse 118; Resp 19 S; Temp 99.1(O); Pulse Ox 98% on R/A; aa5 17:00 BP 111 / 73; Pulse 118; Resp 20 S; Pulse Ox 99% on R/A; aa5 17:30 BP 104 / 63; Pulse 116; Resp 20 S; Temp 99.1(O); Pulse Ox 100% on R/A; aa5 18:00 BP 98 / 58; Pulse 115; Resp 18 S; Pulse Ox 100% on R/A; aa5 18:20 BP 114 / 81; Pulse 119; Resp 20 S; Pulse Ox 99% on R/A; aa5 11:42 Body Mass Index 26.78 (70.76 kg, 162.56 cm) iw 11:42 Pain Scale: Adult iw MDM: 11:41 Medical Screening Exam initiated sb4 13:54 Data reviewed: vital signs, nurses notes, EMS record, lab test result(s), EKG, sb4 radiologic studies. 13:54 Post IV fluid administration reassessment for Sepsis: Client prescribed 30 mL/kg IVF. sb4 Sepsis focused reassessment complete. 14:03 Counseling: I had a detailed discussion with the patient and/or guardian regarding the sb4 historical points, exam findings, and any diagnostic results supporting the discharge/admit diagnosis, lab results, radiology results, the need for further work-up and treatment in the hospital. 14:08 Differential diagnosis: appendicitis, cholecystitis, Cholelithiasis, diverticulitis, sb4 gastritis, non-specific abd pain, pancreatitis. ED course: patient is in septic shock secondary to colitis, possibly UTI. 30cc/kg fluid bolus administered, BP has improved. initial lactate 4.5. antibiotics are ordered and will be administered following blood cultures. will admit patient and repeat lactate . 04/08 11:42 Order name: Blood Culture Adult (2) sb4 04/08 11:42 Order name: CBC with Diff; Complete Time: 13:15 sb4 04/08 11:42 Order name: CMP; Complete Time: 12:44 sb4 04/08 11:42 Order name: Lactate w/ 2H reflex if indic.; Complete Time: 12:46 sb4 04/08 11:42 Order name: Protime (+inr); Complete Time: 15:11 sb4 04/08 11:42 Order name: Ptt, Activated; Complete Time: 15:11 sb4 04/08 11:42 Order name: Urinalysis w/ reflexes; Complete Time: 14:13 sb4 04/08 12:48 Order name: Ghost Lactate-NO COLLECT Timer; Complete Time: 14:47 EDMS 04/08 13:15 Order name: Manual Differential; Complete Time: 13:15 EDMS 04/08 14:14 Order name: Lactate w/ 2H reflex if indic. sb4 04/08 14:57 Order name: Valproic Acid (Depakene) Level EDMS 04/08 14:57 Order name: CBC with Automated Diff EDMS 04/08 14:57 Order name: CBC with Automated Diff EDMS 04/08 14:57 Order name: CBC with Automated Diff EDMS 04/08 14:57 Order name: CBC with Automated Diff EDMS 04/08 14:57 Order name: CBC with Automated Diff EDMS 04/08 14:57 Order name: CBC with Automated Diff EDMS 04/08 14:57 Order name: CBC with Automated Diff EDMS 04/08 14:57 Order name: CBC with Automated Diff EDMS 04/08 14:57 Order name: Comprehensive Metabolic Panel EDMS 04/08 14:57 Order name: Comprehensive Metabolic Panel EDMS 04/08 14:57 Order name: Comprehensive Metabolic Panel EDMS 04/08 14:57 Order name: Comprehensive Metabolic Panel EDMS 04/08 14:57 Order name: Comprehensive Metabolic Panel EDMS 04/08 14:57 Order name: Comprehensive Metabolic Panel EDMS 04/08 14:57 Order name: Comprehensive Metabolic Panel EDMS 04/08 14:57 Order name: Comprehensive Metabolic Panel EDMS 04/08 14:57 Order name: Magnesium EDMS 04/08 14:57 Order name: Magnesium EDMS 04/08 14:57 Order name: Magnesium EDMS 04/08 14:57 Order name: Magnesium EDMS 04/08 14:57 Order name: Magnesium EDMS 04/08 14:57 Order name: Magnesium EDMS 04/08 14:57 Order name: Magnesium EDMS 04/08 14:57 Order name: Magnesium EDMS 04/08 14:57 Order name: Phosphorus EDMS 04/08 14:57 Order name: Phosphorus EDMS 04/08 14:57 Order name: Phosphorus EDMS 04/08 14:57 Order name: Phosphorus EDMS 04/08 14:57 Order name: Phosphorus EDMS 04/08 14:57 Order name: Phosphorus EDMS 04/08 14:57 Order name: Phosphorus EDMS 04/08 14:57 Order name: Phosphorus EDMS 04/08 16:27 Order name: Lactate Sepsis 2 HR Follow-up; Complete Time: 16:27 EDMS 04/08 12:44 Order name: CT Abd/Pelvis - Without Contrast; Complete Time: 13:59 sb4 04/08 11:42 Order name: EKG; Complete Time: 11:42 sb4 04/08 11:42 Order name: Cardiac monitoring; Complete Time: 12:24 sb4 04/08 11:42 Order name: EKG - Nurse/Tech; Complete Time: 12:24 sb4 04/08 11:42 Order name: IV Saline Lock - Large Bore; Complete Time: 12:24 sb4 04/08 11:42 Order name: Labs collected and sent; Complete Time: 12:24 sb4 04/08 11:42 Order name: O2 Per Protocol; Complete Time: 12:24 sb4 04/08 11:42 Order name: O2 Sat Monitoring; Complete Time: 12:24 sb4 04/08 11:42 Order name: Vital Signs; Complete Time: 12:24 sb4 EC:11 Rate is 107 beats/min. Rhythm is regular, Sinus tachycardia. MD interval is normal at sb4 148 msec. QRS interval is normal at 84 msec. QT interval is normal at 312 msec. Clinical impression: Sinus tachycardia. Interpreted by me. Reviewed by me. Administered Medications: 12:24 Drug: NS 0.9% IV (30 ml/kg) 30 ml/kg IV at bolus once; Sepsis Protocol; to be given as aa5 a bolus over 90 minutes Route: IV; Rate: bolus; Site: right wrist; 15:00 Follow up: IV Status: Completed infusion; IV Intake: 2122ml aa5 13:12 Drug: fentaNYL (PF) IVP 25 mcg IVP once Route: IVP; Site: right wrist; aa5 13:20 Follow up: Response: No adverse reaction aa5 14:15 Drug: Cyclobenzaprine PO 10 mg PO once Route: PO; aa5 15:00 Follow up: Response: No adverse reaction aa5 14:41 Drug: Piperacillin-Tazobactam IVPB 3.375 grams IVPB once over 60 mins; (mix in NS 100 aa5 mL) Route: IVPB; Infused Over: 60 mins; Site: left wrist; 15:41 Follow up: Response: No adverse reaction; IV Status: Completed infusion aa5 16:26 Drug: NS 0.9% IV 1000 ml IV at 1 bolus Per protocol; to be given as a bolus over 60 aa5 minutes Route: IV; Rate: 1 bolus; Site: left hand; 17:25 Follow up: IV Status: Completed infusion; IV Intake: 1000ml aa5 Disposition Summary: 04/08/24 14:03 Hospitalization Ordered Notes: Hospitalization Status: Inpatient Admission sb4 Provider: Sujit Mishra Condition: Serious sb4 Problem: new sb4 Symptoms: are unchanged sb4 Bed/Room Type: Standard sb4 Location: Intensive Care Unit(04/08/24 16:18) [facility] Room Assignment: 2-(04/08/24 16:26) eb Diagnosis - Infectious gastroenteritis and colitis, unspecified sb4 - Severe sepsis with septic shock sb4 Forms: - Medication Reconciliation Form sb4 - SBAR form sb4 - Leadership Thank You Letter sb4 Critical care time excluding procedures: 14:03 Critical care time: Bedside Care: 15 minutes, Consultation: 15 minutes, Family sb4 Intervention: 5 minutes. Total time: 35 minutes Addendum: 04/13/2024 12:48 Co-signature as Attending Physician, Rubens Soliman MD I agree with the assessment and c murphy plan of care. Signatures: Dispatcher [employer] EDRubens Herbert MD MD cha Williams, Irene, RN YA Shaista Valerio, RN RN aa5 Tonio Arnett RN RN ja1 Patti Hicks Sophia, PA-C PA-C sb4 Corrections: (The following items were deleted from the chart) 04/08 12:26 11:42 Accucheck ordered. sb4 aa5 12:58 11:48 Abdomen Pelvis W Con+CT.RAD.BRZ ordered. EDPR EDPR 15:03 14:03 sb4 iw 16:18 14:03 Telemetry/MedSurg (Inpatient) sb4 [facility] 16:18 15:03 224 iw [facility] 16:26 16:18 [facility]
--- NOTE | 2024-04-08 14:04 | ER ---
Nurse's Notes [facility] Name: Cindy Lizarraga Age: 53 yrs Sex: Female : 1970 Arrival Date: 04/08/2024 Time: 11:25 Bed 8 Private MD: Diagnosis: Infectious gastroenteritis and colitis, unspecified;Severe sepsis with septic shock Presentation: 04/08 11:42 Chief complaint: EMS states: pt c/o abd pain , cramping , back pain, was seen here iw yesterday and told she had food poisoning, she is no longer vomiting , no diarrhea. Coronavirus screen: At this time, the client does not indicate any symptoms associated with coronavirus-19. Ebola Screen: No symptoms or risks identified at this time. Initial Sepsis Screen: Does the patient meet any 2 criteria? Systolic BP < 90 mmHg. HR > 90 bpm. Does the patient have a suspected source of infection?. Risk Assessment: Do you want to hurt yourself or someone else? Patient reports no desire to harm self or others. Onset of symptoms was April 08, 2024. 11:42 Method Of Arrival: EMS: [facility] iw 11:42 Acuity: RAQUEL 2 iw Triage Assessment: 11:44 General: Appears uncomfortable, ill, Behavior is calm. Pain: Complains of pain in iw abdomen. GI: Abdomen is round obese, Abd is soft X 4 quads Abdomen is tender to palpation in right upper quadrant and left upper quadrant. Historical: - Allergies: 11:43 No Known Allergies; iw - Home Meds: 11:47 amitriptyline 50 mg Oral tab daily [Active]; atorvastatin 10 mg Oral tab daily iw [Active]; divalproex 500 mg Oral Tb24 [Active]; lisinopril 10 mg Oral tab daily [Active]; propranolol 80 mg Oral Cs24 daily [Active]; tizanidine 2 mg oral tablet once daily at bedtime [Active]; Fioricet 50-300-40 mg Oral capsule as needed [Active]; Dexilant 60 mg oral capsule,delayed release,biphasic daily [Active]; alprazolam 1 mg Oral tablet 3 times per day [Active]; bupropion HCl 100 mg Oral tablet, sustained-release 12 hr daily [Active]; - PMHx: 11:43 Hypertensive disorder; Seizure; iw - PSHx: 11:43 Total abdominal hysterectomy; iw - Immunization history:: Adult Immunizations not up to date. - Infectious Disease History:: Denies. - Social history:: Smoking status: Patient denies any tobacco usage or history of. Screenin:00 [facility] ED Fall Risk Assessment (Adult) History of falling in the last 3 months, aa5 including since admission No falls in past 3 months (0 pts) Confusion or Disorientation No (0 pts) Intoxicated or Sedated No (0 pts) Impaired Gait No (0 pts) Mobility Assist Device Used No (0 pt) Altered Elimination No (0 pt) Score/Fall Risk Level 0 - 2 = Low Risk Oriented to surroundings, Maintained a safe environment, Educated pt \T\ family on fall prevention, incl call for assistance when getting out of bed. Abuse screen: Denies threats or abuse. Nutritional screening: No deficits noted. Tuberculosis screening: No symptoms or risk factors identified. Assessment: 12:00 General: Appears uncomfortable, Behavior is calm, cooperative. Pain: Complains of pain aa5 in abdomen and back Pain currently is 10 out of 10 on a pain scale. Quality of pain is described as sharp, shooting, Is continuous. Neuro: Level of Consciousness is awake, alert, obeys commands, Oriented to person, place, time, situation. Cardiovascular: Heart tones S1 S2 present Rhythm is regular. Respiratory: Airway is patent Respiratory effort is even, unlabored, Respiratory pattern is regular, symmetrical. GI: Abdomen is round non-distended, Bowel sounds present X 4 quads. Abd is soft X 4 quads Patient currently denies nausea, vomiting. : No signs and/or symptoms were reported regarding the genitourinary system. EENT: Oral mucosa is dry. Derm: Skin is pink, warm \T\ dry. Musculoskeletal: Range of motion: intact in all extremities. 13:00 Reassessment: Patient is alert, oriented x 3, equal unlabored respirations, skin aa5 warm/dry/pink. 13:05 Reassessment: Pt assisted with urine specimen collection. . aa5 14:15 Reassessment: Patient is alert, oriented x 3, equal unlabored respirations, skin aa5 warm/dry/pink. 14:41 Reassessment: Patient is alert, oriented x 3, equal unlabored respirations, skin aa5 warm/dry/pink. 16:20 Reassessment: Spoke to PRATIK Ji (hospitalist) about decreased BP and possible need aa5 to upgrade pt to ICU. . 16:20 Reassessment: Patient is alert, oriented x 3, equal unlabored respirations, skin aa5 warm/dry/pink. 16:44 Reassessment: Dr. Mishra (hospitalist) at bedside. . aa5 17:55 Reassessment: Patient is alert, oriented x 3, equal unlabored respirations, skin aa5 warm/dry/pink. See [facility] for medications administered. . 17:55 General: Appears uncomfortable, Behavior is calm, cooperative. aa5 17:55 Pain: Complains of pain in back and abdomen Pain currently is 10 out of 10 on a pain aa5 scale. 17:57 Reassessment: Awaiting call from ICU to given report, checked with ICU at this time and aa5 nurse is unavailable. Pt and family aware of wait time. . 18:30 Reassessment: Patient is alert, oriented x 3, equal unlabored respirations, skin aa5 warm/dry/pink. Vital Signs: 11:42 BP 85 / 56; Pulse 102; Resp 16; Temp 98.1; Pulse Ox 100% on R/A; Weight 70.76 kg; iw Height 5 ft. 4 in. ; Pain 10/10; 12:25 BP 94 / 67; Pulse 106; Resp 18 S; Pulse Ox 100% on R/A; aa5 13:00 BP 107 / 71; Pulse 105; Resp 16 S; Pulse Ox 100% on R/A; aa5 14:00 BP 135 / 93; Pulse 113; Resp 20 S; Pulse Ox 99% on R/A; aa5 14:43 BP 126 / 72; Pulse 114; Resp 18 S; Temp 99.1(O); Pulse Ox 99% on R/A; aa5 16:00 BP 91 / 50; Pulse 113; Resp 18 S; Pulse Ox 100% on R/A; aa5 16:10 BP 98 / 66; Pulse 116; Resp 18 S; Pulse Ox 99% on R/A; aa5 16:20 Temp 99.1(O); aa5 16:20 BP 85 / 45; Pulse 116; Resp 20 S; Pulse Ox 98% on R/A; aa5 16:40 BP 111 / 67; Pulse 118; Resp 19 S; Temp 99.1(O); Pulse Ox 98% on R/A; aa5 17:00 BP 111 / 73; Pulse 118; Resp 20 S; Pulse Ox 99% on R/A; aa5 17:30 BP 104 / 63; Pulse 116; Resp 20 S; Temp 99.1(O); Pulse Ox 100% on R/A; aa5 18:00 BP 98 / 58; Pulse 115; Resp 18 S; Pulse Ox 100% on R/A; aa5 18:20 BP 114 / 81; Pulse 119; Resp 20 S; Pulse Ox 99% on R/A; aa5 11:42 Body Mass Index 26.78 (70.76 kg, 162.56 cm) iw 11:42 Pain Scale: Adult iw ED Course: 11:40 Patient arrived in ED. ph 11:41 Juju Rowe PA-C is PHCP. sb4 11:41 Rubens Soliman MD is Attending Physician. sb4 11:43 Triage completed. iw 11:45 Arm band placed on. iw 11:47 Shaista Valerio, RN is Primary Nurse. aa5 12:00 Patient has correct armband on for positive identification. Placed in gown. Bed in low aa5 position. Call light in reach. Side rails up X2. Client placed on continuous cardiac and pulse oximetry monitoring. NIBP monitoring applied. treasury accountant on. Pulse ox on. NIBP on. 12:16 Initial lab(s) drawn, by me, sent to lab. First set of blood cultures drawn by me. aa5 12:22 Inserted saline lock: 22 gauge in right wrist, using aseptic technique. Blood collected.aa5 12:25 Unable to obtain PT/PTT at this time, pt is a hard stick. Phlebotomy contacted for 2nd aa5 set of blood cultures and PT/PTT, provider aware. 13:39 CT Abd/Pelvis - Without Contrast In Process Unspecified. EDMS 14:03 Sujit Mishra MD is Hospitalizing Provider. sb4 14:35 Second set of blood cultures drawn by me, PT/PTT drawn and sent to lab. aa5 14:40 Inserted saline lock: 22 gauge in left wrist, using aseptic technique. Flushed with 10 aa5 mL NS. 18:30 No provider procedures requiring assistance completed. Patient admitted, IV remains in aa5 place. Administered Medications: 12:24 Drug: NS 0.9% IV (30 ml/kg) 30 ml/kg IV at bolus once; Sepsis Protocol; to be given as aa5 a bolus over 90 minutes Route: IV; Rate: bolus; Site: right wrist; 15:00 Follow up: IV Status: Completed infusion; IV Intake: 2122ml aa5 13:12 Drug: fentaNYL (PF) IVP 25 mcg IVP once Route: IVP; Site: right wrist; aa5 13:20 Follow up: Response: No adverse reaction aa5 14:15 Drug: Cyclobenzaprine PO 10 mg PO once Route: PO; aa5 15:00 Follow up: Response: No adverse reaction aa5 14:41 Drug: Piperacillin-Tazobactam IVPB 3.375 grams IVPB once over 60 mins; (mix in NS 100 aa5 mL) Route: IVPB; Infused Over: 60 mins; Site: left wrist; 15:41 Follow up: Response: No adverse reaction; IV Status: Completed infusion aa5 16:26 Drug: NS 0.9% IV 1000 ml IV at 1 bolus Per protocol; to be given as a bolus over 60 aa5 minutes Route: IV; Rate: 1 bolus; Site: left hand; 17:25 Follow up: IV Status: Completed infusion; IV Intake: 1000ml aa5 Medication: 14:41 VIS not applicable for this client. aa5 Intake: 15:00 IV: 2122ml; Total: 2122ml. aa5 17:25 IV: 1000ml; Total: 3122ml. aa5 13:05 Dark tea colored urine aa5 16:30 Tea colored urine/dark urine. aa5 Output: 13:05 Urine: 100ml (Voided); Total: 100ml. aa5 16:30 Urine: 200ml (Voided); Total: 300ml. aa5 13:05 Dark tea colored urine aa5 16:30 Tea colored urine/dark urine. aa5 Outcome: 14:03 Decision to Hospitalize by Provider. sb4 18:30 Admitted to ICU accompanied by nurse, accompanied by tech, family with patient, via aa5 stretcher, room ICU 2 , on monitor, with chart, Report called to YA Paiz 18:30 Condition: stable 18:30 Instructed on the need for admit, Demonstrated understanding of instructions, 18:35 Patient left the ED. aa5 Signatures: Dispatcher [employer] Patti Burgos RN RN iw Shaista Valerio RN RN aa5 Winnie England RN RN ph Brown, Sophia, PA-C PA-C sb4 Corrections: (The following items were deleted from the chart) 14:51 14:43 Temp 99.1F Oral; aa5 aa5 19:06 18:52 Patient left the ED. aa5 aa5
[2024-04-08] MEDS ORDERED: CYCLOBENZAPRINE 10 MG TAB ONE (14:05)
[2024-04-08] MEDS ORDERED: NA CHLORIDE 0.9% 100 ML ONE (14:07)
[2024-04-08] MEDS ORDERED: PIPERACIL/TAZO 3.375 GM VIAL IV ONE (14:07)
[2024-04-08 14:13] LABS: Specific Gravity 1.025 (1.005-1.030); Sqamous Epithelial <5 /HPF (None Seen); Urine Bacteria <20 /HPF (<20); Urine Bilirubin 1+ (Negative); Urine Blood Negative (Negative); Urine Clarity Extremely Turbid (Clear); Urine Color Dark-Yellow (Yellow); Urine Crystals Unidentified Few /HPF (None Seen); Urine Culture Reflex Order NOT NEEDED; Urine Glucose NEGATIVE (Negative); Urine Ketones NEGATIVE (Negative); Urine Microscopic Reflex YN ORDER UMIC; Urine Mucus Slight /HPF (None Seen); Urine Nitrite NEGATIVE (Negative); Urine Protein TRACE (Negative); Urine RBC <5 /HPF (None Seen); Urine Urobilinogen 3+ (Normal); Urine WBC <5 /HPF (<5); Urine WBC Clump Rare /HPF (None Seen); Urine Yeast (Budding) Trace /HPF (None Seen)
[2024-04-08] MEDS ORDERED: HYDROMORPHONE HCL 1 MG/ML INJ IV PRN (14:48)
[2024-04-08] MEDS ORDERED: ACETAMINOPHEN 325 MG TABLET PO PRN (14:48)
[2024-04-08 15:02] LABS: PT Prothrombin Time 11.7 SECONDS (9.4-12.5); PTT, Activated Partial Thromb 24.1 SECONDS (24.3-36.9); Protime INR 1.05
--- NOTE | 2024-04-08 15:29 | P.HP ---
Certification for Inpatient Patient admitted to: Inpatient With expected LOS: >2 Midnights Practitioner: I am a practitioner with admitting privileges, knowledge of patient current condition, hospital course, and medical plan of care. Services: Services provided to patient in accordance with Admission requirements found in Title 42 Section 412.3 of the Code of Federal Regulations Patient History Date of Service: 04/08/24 Reason for admission: Severe sepsis 2/2 colitis History of Present Illness: Cindy Lizarraga is a 53 year old female with Pmhx HTN and migraines who presents to the ED for the second time and worsening abdominal pain associated with n/v. She was seen in the ED earlier today and was discharged home with food poisoning. She reported eating taco weems and within an hour had vomited undigested taco weems. She was asked if she wanted to go home or be admitted for further symptom management and she chose to discharge. CT abd/pelvis reports " Moderate to large volume of formed stool in the colon with wall thickening that extends from about the mid transverse colon through the proximal sigmoid. This is concerning for a colitis. Small volume of abnormal but nonspecific abdominopelvic free fluid." Laboratory evaluation is significant for left shift neutrophils 86, lactic acid 4.5, BUN/creatinine 27/1.7, AST 74, ALT 79, alk phos 120, bands 36, urine extremity turbid, hyaline casts present, mild leukocyte esterase, Cindy will be admitted to hospitalist service for treatment of lactic acidosis 2/2 vomiting and dehydration. Allergies No Known Allergies Allergy (Verified 04/08/24 15:01) Home Medications: Alprazolam [Xanax] 1 mg PO QID 10/31/20 Amitriptyline HCl 50 mg PO BEDTIME 10/31/20 Butalb/Acetaminophen/Caffeine [Irwicr-Mzvokvsw-Qlga 50-325-40] 1 each PO TID 10/31/20 Divalproex Sodium 500 mg PO DAILY 10/31/20 Lisinopril [Zestril] 10 mg PO DAILY 10/31/20 Propranolol HCl [Propranolol HCl ER] 80 mg PO DAILY 10/31/20 Tizanidine HCl 2 mg PO TID 10/31/20 Tramadol HCl [Ultram] 50 mg PO Q4H PRN 10/31/20 - Past Medical/Surgical History -: Hypertension -: Migraine -: Hysterectomy - Family History Mother -: Hypertension, Other (see notes) Notes: dementia Father -: Cancer - Social History Smoking Status: Never smoker Alcohol use: No CD- Drugs: No Review of Systems Gastrointestinal: Nausea, Vomiting, Abdominal Pain Physical Examination - Physical Exam General: Alert, Oriented x3, Other (Uncomfortable) HEENT: Atraumatic, Normocephalic Neck: Supple, 2+ carotid pulse no bruit Respiratory: Clear to auscultation bilaterally, Normal air movement Cardiovascular: Normal pulses, Regular rate/rhythm, Normal S1 S2 Capillary refill: <2 Seconds Gastrointestinal: Normal bowel sounds, Soft and benign, Non-distended Musculoskeletal: No clubbing Integumentary: No rashes Neurological: Normal speech, Normal tone - Studies Laboratory Data (last 24 hrs) 04/08/24 04/08/24 12:16 12:16 WBC 8.60 Hgb 12.5 D Hct 38.8 Plt Count 280 Sodium 138 Potassium 4.4 BUN 27 H Creatinine 1.70 H Glucose 100 Total Bilirubin 0.7 AST 74 H ALT 79 H Alkaline Phosphatase 120 H D Assessment and Plan - Plan Assessment and plan Severe sepsis 2/2 Colitis Acute kidney injury secondary to vomiting and dehydration -Sepsis criteria lactic acid 4.2, HR 102, BP 85/56, Resp 31 -multiple IV bolus, did not require pressers, Admitted to ICU -Bicarb 18, lactic acid 4.2, BUN/creatinine 27/1.7, GFR 35, bands 36, neutrophils 86 -Repeat lactic acid -Flagyl and Cipro IV Colitis secondary to food poisoning and constipation -Flagyl and Cipro IV -Soapsud enema x 1, Dulcolax twice daily x 2 doses -NPO -Dr. Hoffman consulted History of migraine -Reports Depakote home medication -Depakote level pending -Continue home medication as appropriate Hypertension -Continue home medication DVT PPx heparin Full code LOS 2 days Discharge Plan: Home Plan to discharge in: 48 Hours - Advance Directives Does patient have a Living Will: No Does patient have a Durable POA for Healthcare: No
[2024-04-08] MEDS ORDERED: NA CHLORIDE 0.9% 1,000 ML ONE ×2 (16:14→17:46)
[2024-04-08] MEDS: NA CHLORIDE 0.9% 1,000 ML IV ONE (16:18)
[2024-04-08] MEDS ORDERED: SODIUM CHLORIDE 0.9% 10ML INJ IV PRN (16:51)
[2024-04-08] MEDS: METRONIDAZOLE 500mg IVPB 500 MG/100 ML BAG IV SCH (17:00)
[2024-04-08] MEDS ORDERED: METRONIDAZOLE 500mg IVPB 500 MG/100 ML BAG IV ONE (17:46)
[2024-04-08] MEDS ORDERED: CIPROFLOXACIN 400mg IV 400 MG/200 ML BAG IV ONE (17:46)
[2024-04-08] MEDS: CIPROFLOXACIN 400mg IV 400 MG/200 ML BAG IV SCH (17:55)
[2024-04-08] MEDS: NA CHLORIDE 0.9% 1,000 ML IV SCH (17:55)
[2024-04-08] MEDS: FENTANYL CITR 100 MCG/2 ML IV PRN (17:55)
--- NOTE | 2024-04-08 19:18 | RAD REPORT ---
Abdomen Exam Limited: 04/08/2024 6:00 PM CLINICAL HISTORY: elevated bilirubin STUDY: Limited right upper quadrant ultrasound of abdomen. COMPARISON: Same day CT FINDINGS: Liver: Limited evaluation but grossly unremarkable. Bile ducts: Extrahepatic biliary ductal dilatation is present with common bile duct measuring 9 mm. Gallbladder: The gallbladder is distended but no cholelithiasis or gallbladder wall thickening. IMPRESSION: The extra hepatic common bile duct measures 9 mm which is dilated. This is nonspecific. The gallbladd er is distended but no evidence of cholelithiasis or sonographic evidence of acute cholecystitis. MRCP could further evaluate if clinically indicated.
[2024-04-08] MEDS: HEPARIN 5000 UNIT/ML 1 ML VIAL SQ SCH (20:55)
[2024-04-08] MEDS: PANTOPRAZOLE 40 MG INJ IVP SCH (20:56)
[2024-04-08] MEDS ORDERED: CIPROFLOXACIN 400mg IV 400 MG/200 ML BAG IV SCH (21:00)
[2024-04-08] MEDS: BISACODYL E.C. 5 MG TAB PO SCH (21:00)
[2024-04-08 23:31] VITALS: BMI 30.5
--- NOTE | 2024-04-09 04:53 | RAD REPORT ---
EXAM DESCRIPTION: Chest Single View CLINICAL HISTORY: PICC placement COMPARISON: None. FINDINGS: 1 view(s) of the chest. Tubes and lines: Right arm PICC with tip at the atriocaval junction. Leads overlie the chest. Cardiomediastinal silhouette: Atherosclerotic calcification of the thoracic aorta. Cardiomegaly. Lungs: Mild perihilar opacities. No pneumothorax or large effusion. Elevation right hemidiaphragm. Bones: No acute osseous abnormality. Degenerative change of the spine and shoulders. Upper abdomen: No abnormality identified. IMPRESSION: 1. Right arm PICC with tip at the atriocaval junction. 2. Cardiomegaly with pulmonary vascular congestion. Electronically signed by: Klaus Ferrer DO 04/09/2024 04:48 AM [id number] Due to temporary technical issues with the PACS/[employer] reporting system, reports are being jael d by the in-house radiologist without review as a courtesy to ensure prompt reporting the interpreting radiologist is fully responsible for the content of the report. Transcribed Date/Time: 04/09/2024 4:52 AM
[2024-04-09 05:10] LABS: Absolute Lymphocytes (CBC) 0.7 K/uL (0.7-4.9); Absolute Neutrophil 11.9 K/uL (1.8-8.0); Basophils % 0.1 % (0-1.3); Eosinophils % 0.1 % (0-4.4); Hematocrit 33.1 % (36.0-45.0); Hemoglobin 10.6 g/dL (12.0-15.0); Lymphocytes % 5.3 % (15.3-44.8); MCH 31.9 pg (27.0-35.0); MCV 99.7 fL (80-100); MPV 9.1 fL (7.6-11.3); Monocytes % 7.1 % (3.3-12.3); Neutrophils % 87.4 % (41.7-73.7); Platelets 212 thou/uL (152-406); RBC Red Blood Cell Count 3.32 M/uL (3.86-4.86); Red Cell Distribution Width 13.4 % (12.1-15.2)
[2024-04-09 05:48] LABS: Albumin 2.4 g/dL (3.4-5.0); Albumin/Globulin Ratio 0.7 (1.1-1.8); Anion Gap 14.6 mEq/L (5.0-15.0); Bilirubin Direct 0.3 mg/dL (0-0.2); Bilirubin Indirect, Calculated 0.2 mg/dL (0.2-0.8); Bilirubin Total 0.5 mg/dL (0.2-1.0); Globulin 3.5 g/dL (2.3-3.5); Magnesium 2.3 mg/dL (1.6-2.4); Phosphorus 4.4 mg/dL (2.5-4.9); Potassium 3.6 mEq/L (3.5-5.1); Protein, Total 5.9 g/dL (6.4-8.2)
[2024-04-09] MEDS: KCL 20 MEQ/100 mL IVPB 20 MEQ/100 ML BAG IV SCH (06:28)
[2024-04-09] MEDS: FLU (Fluarix Triv) TS24-25(6MOS UP)/PF 45 MCG/0.5 ML Syringe IM ONE (08:00)
[2024-04-09] MEDS: PNEUMOCOCCAL VACCINE 0.5 ML IMVAC ONE (08:00)
[2024-04-09] MEDS: D5W 1,000 ML IV SCH ×2 (08:25→11:24)
[2024-04-09] MEDS: Mupirocin NASAL 2 APPL/1 GM TUBE NAS SCH (08:25)
--- NOTE | 2024-04-09 09:32 | P.PN ---
Date of Service: 04/09/24 Subjective Awake and feeling much better, will advance diet to CLD dulcolax held after multiple BM last night Will likely down grade this afternoon after 24 hour observation needed with severe sepsis ROS 10 point ROS as noted above, otherwise negative Physical Exam General: AAO x3, NAD HEENT: Atraumatic, Normocephalic Neck: Supple, 2+ carotid pulse no bruit Respiratory: Clear to auscultation bilaterally, Normal air movement, tachypneic, on 2 LNC Cardiovascular: Normal pulses, Tachycardia, Normal S1 S2 Capillary refill: <2 Seconds Gastrointestinal: Normal bowel sounds, Soft and benign on palpation, ND/NT Musculoskeletal: No clubbing Integumentary: No rashes Neurological: Normal speech, Normal tone Vitals Reviewed Problem list Severe sepsis 2/2 Colitis Acute kidney injury secondary to vomiting and dehydration Colitis secondary to food poisoning and constipation History of migraine Hypertension Assessment and Plan Severe sepsis 2/2 Colitis Acute metabolic acidosis with hypoxemia Acute kidney injury secondary to vomiting and dehydration -Sepsis criteria lactic acid 4.2, HR 102, BP 85/56, Resp 31 -multiple IV bolus, did not require pressers, Admitted to ICU -WBC 13.6, Bicarb 17, lactic acid 1.4, BUN/creatinine 24/1.17, GFR 55, bands 36, neutrophils 87.4 -Repeat lactic acid 1.4 -ABG PH 7.252, pCO2 37.4, O2 76, HCO3 15.9 -on 2 LNC -Flagyl and Cipro IV Colitis secondary to food poisoning and constipation -Flagyl and Cipro IV -Soapsud enema x 1, Dulcolax twice daily x 2 doses- stopped -multiple bowel movements last night -CLD -Dr. Hoffman consulted History of migraine -Reports Depakote home medication -Depakote level pending -Continue home medication as appropriate Hypertension -Continue home medication DVT PPx heparin Full code LOS 2 days Discharge Plan: Home Plan to discharge in: 48 Hours
--- NOTE | 2024-04-09 11:32 | CON ---
Date of Consultation: 04/08/2024 Reason For Consultation: Abdominal pain. History Of Present Illness: The patient is a 53-year-old female who was admitted yesterday after eat ing some [employer] the night before and had excessive vomiting and dry heaving. She initially came t o the emergency room early Wednesday morning and was evaluated, was recommended to be admitted. [facility] er, patient left as she was feeling better and then her pain continued, therefore she came back. The patient was found to be in severe sepsis per protocol and was treated appropriately. The patient do es take Depakote and has issues with chronic constipation as well. She had a CAT scan done and shayy p done and essentially patient had severe sepsis secondary to extreme dehydration. The patient did n ot have any findings suggesting the need for surgical intervention. The patient currently is awake a nd alert, tolerating her clear liquids. Her pain is much better. She had 8 bowel movements yesterda y and feels a lot better as well and she denies any sore throat, runny nose, cough, headaches, or diz ziness. No chest pain. No fever or chills. Review of Systems: Otherwise unremarkable. Past Medical History: Significant for hypertension and migraine Past Surgical History: Significant for hysterectomy. Allergies: NO ALLERGIES. Social History: The patient does not smoke or drink alcohol. Family History: Significant for hypertension, dementia, and unknown type of cancer in the father. H er vital signs currently are significant for tachycardia, slight tachypnea and slight elevation of th e blood pressure. Physical Examination: Vital Signs: She is afebrile. Her O2 saturation is 100%. General: She is awake, alert, or oriented x3. Head and Neck: No masses. However, she still has some dry mucous membrane. Chest: Clear. Heart: S1, S2. Abdomen: Soft. Very minimal, diffuse, nonspecific tenderness. No rebound. No rigidity. No guardi ng. Extremities: Adequately perfused, nontender. Neuro: Nonfocal. Laboratory Data: Shows a white count 13.6 with H and H of 10.6 and 33.1. There is a left shift pres ent. INR is 1.05. Chemistry shows the lactic acid initially to be 4.5, currently is 1.4. Her BUN a nd creatinine are still elevated. GFR is 55. AST and ALT are slightly elevated. CT of the abdomen and pelvis reviewed, which shows [id number] volume of formed stool in the colon with wall thic kening that extends from the mid transverse colon throughout this sigmoid colon and is concerning for colitis. A small volume of abnormal, but nonspecific abdominal pelvic free fluid. The gallbladder is distended, but otherwise unremarkable. Ultrasound of the abdomen reviewed as well shows extrahepa tic common bile duct to be 9 mm which is nonspecific. No gallstones are identified and no evidence o f acute cholecystitis. Chest x-ray was done, shows a right arm PICC line. Cardiomegaly with some pu lmonary vascular congestion. Assessment: A 53-year-old female with likely dehydration secondary to food poisoning, chronic consti pation from the Depakote use. Recommendation: Patient is still being resuscitated. Would continue with hydration aggressively. M onitor urine output. The patient can have clear liquids and advance as tolerated. There is no need for any surgical intervention. Antibiotics as ordered. Check electrolytes and correct them as neede d. The LFTs slightly being elevated, may be secondary to her shock status from sepsis yesterday. We can just follow that for the time being. As far as the colitis is concerned, not sure whether the p atient actually has colitis. The patient does not have physical findings consistent with that. Her history is more consistent with sequela of food poisoning. /MODL Voice ID: [id number] Report ID: [id number]
[2024-04-09] MEDS ORDERED: LEVALBUTEROL 0.63 MG/3 ML NEB NEB PRN (11:35)
[2024-04-09 12:07] LABS: Blood Gas Oxyhemoglobin 92.1 % (94-97); Blood O2 Saturation 94.1 % (92-98.5)
[2024-04-09 12:08] LABS: Arterial Blood Carboxyhemoglob 0.4 % (0-1.5); Blood Gas THB 10.6 g/dl (12-18)
--- NOTE | 2024-04-09 13:06 | EKG ---
Test Date: 2024-04-08 Test Time: 12:01:26 Tallow Maker: AM MEASUREMENT RESULTS: Intervals: Rate: 107 TX: 148 QRSD: 84 QT: 312 QTc: 416 [place]: P: 55 TX: 148 QRS: 71 T: -19 INTERPRETIVE STATEMENTS: Sinus tachycardia Inferior infarct, age undetermined Possible Anterior infarct, age undetermined ST & T wave abnormality, consider lateral ischemia Abnormal ECG Compared to ECG 10/31/2020 19:36:41 Myocardial infarct finding now present ST (T wave) deviation now present Possible ischemia now present Sinus rhythm no longer present Electronically Signed On 04-09-24 13:04:10 COMPUTING SYSTEMS MECHANIC by Bang Pena
[2024-04-09] MEDS ORDERED: FLU (Fluarix Triv) TS24-25(6MOS UP)/PF 45 MCG/0.5 ML Syringe IM ONE (14:00)
[2024-04-09] MEDS ORDERED: PNEUMOCOCCAL VACCINE 0.5 ML IMVAC ONE (14:00)
[2024-04-09] MEDS: D5W 1,000 ML with NA BICARB 8.4% 100 MEQ IV SCH (16:00)
[2024-04-09] MEDS: PROMETHAZINE INJ 25 MG/ML AMP IV PRN (21:15)
[2024-04-10] MEDS: METOPROLOL TARTRATE 5 MG/5 ML INJ IV PRN (01:40)
[2024-04-10 05:43] LABS: Absolute Eosinophils 0.2 K/uL (0-0.5); Absolute Lymphocytes (CBC) 0.9 K/uL (0.7-4.9); Absolute Monocytes 0.6 K/uL (0.1-1.3); Absolute Neutrophil 13.3 K/uL (1.8-8.0); Basophils % 0.2 % (0-1.3); Eosinophils % 1.5 % (0-4.4); Hematocrit 29.4 % (36.0-45.0); Hemoglobin 9.5 g/dL (12.0-15.0); Lymphocytes % 5.9 % (15.3-44.8); MCH 32.2 pg (27.0-35.0); MCHC 32.4 g/dL (32.0-36.0); MCV 99.6 fL (80-100); MPV 9.2 fL (7.6-11.3); Monocytes % 4.1 % (3.3-12.3); Neutrophils % 88.3 % (41.7-73.7); Platelets 230 thou/uL (152-406); RBC Red Blood Cell Count 2.96 M/uL (3.86-4.86); Red Cell Distribution Width 13.6 % (12.1-15.2)
[2024-04-10 05:55] LABS: Albumin 2.2 g/dL (3.4-5.0); Albumin/Globulin Ratio 0.6 (1.1-1.8); Anion Gap 11.1 mEq/L (5.0-15.0); Bilirubin Total 0.4 mg/dL (0.2-1.0); Globulin 3.6 g/dL (2.3-3.5); Magnesium 2.5 mg/dL (1.6-2.4); Potassium 4.1 mEq/L (3.5-5.1); Protein, Total 5.8 g/dL (6.4-8.2)
[2024-04-10 07:54] LABS: Albumin 2.2 g/dL (3.4-5.0); Albumin/Globulin Ratio 0.6 (1.1-1.8); Bilirubin Direct 0.2 mg/dL (0-0.2); Bilirubin Indirect, Calculated 0.3 mg/dL (0.2-0.8); Bilirubin Total 0.5 mg/dL (0.2-1.0); Globulin 3.6 g/dL (2.3-3.5); Protein, Total 5.8 g/dL (6.4-8.2)
[2024-04-10 08:27] LABS: Blood Morphology Comment NOT SEEN (NOT SEEN); Platelet Estimate ADEQ; Toxic Granulation PRESENT; White Blood Cell Scan OK (OK)
[2024-04-10 09:44] LABS: Thyroid Stimulating Hormone 0.429 uIU/mL (0.358-3.740)
[2024-04-10] MEDS: PIPER TAZO 3.375 GM in NA CHLORIDE 0.9% 100 ML IV SCH (10:08)
[2024-04-10] MEDS ORDERED: TRAMADOL HCL 50 MG TAB PO PRN (17:51)
[2024-04-10] MEDS: PROPRANOLOL HCL 80 MG SA CAP PO SCH (18:28)
[2024-04-10] MEDS: AMITRIPTYLINE 50 MG TAB PO ONE (18:28)
[2024-04-10] MEDS: TIZANIDINE 4 MG TABLET PO SCH (20:53)
[2024-04-10] MEDS: ALPRAZOLAM 1 MG TABLET PO SCH (20:54)
[2024-04-10] MEDS ORDERED: HOME MED 1 EA UNK (Tizanidine Hcl [Tizanidine Hcl] 2 MG Tablet) PO SCH (21:00)
--- NOTE | 2024-04-10 21:43 | P.PN ---
Date of Service: 04/10/24 Subjective Awake, eating while sitting up in bed, reports sitting in the chair reports feeling much better WBC increased, changed antibiotics ROS 10 point ROS as noted above, otherwise negative Physical Exam General: alert and oriented x3, NAD HEENT: Atraumatic, Normocephalic Neck: Supple, 2+ carotid pulse no bruit Respiratory: Clear to auscultation bilaterally, Normal air movement,2 NC Cardiovascular: Normal pulses, Tachycardia, Normal S1 S2 Capillary refill: <2 Seconds Gastrointestinal: Normal bowel sounds, Soft and benign on palpation, ND/NT Musculoskeletal: No clubbing Integumentary: No rashes Neurological: Normal speech, Normal tone Vitals Reviewed Problem list Severe sepsis 2/2 Colitis Acute kidney injury secondary to vomiting and dehydration Colitis secondary to food poisoning and constipation History of migraine Hypertension Assessment and Plan Severe sepsis 2/2 Colitis Acute metabolic acidosis with hypoxemia Acute kidney injury secondary to vomiting and dehydration -Sepsis criteria lactic acid 4.2, HR 102, BP 85/56, Resp 31 -multiple IV bolus, did not require pressers, Admitted to ICU -WBC 13.6, Bicarb 17, lactic acid 1.4, BUN/creatinine 24/1.17, GFR 55, bands 36, neutrophils 87.4 -Repeat lactic acid 1.4 -ABG PH 7.252, pCO2 37.4, O2 76, HCO3 15.9 -on 2 LNC -Flagyl and Cipro IV changed to zosyn Colitis secondary to food poisoning and constipation -Flagyl and Cipro IV -Soapsud enema x 1, Dulcolax twice daily x 2 doses- stopped -multiple bowel movements last night -FLD -Dr. Hoffman consulted History of migraine -Reports Depakote home medication -Depakote level pending -Continue home medication as appropriate Hypertension -Continue home medication DVT PPx heparin Full code LOS 2 days Discharge Plan: Home Plan to discharge in: 48 Hours
[2024-04-10] MEDS: NALOXONE HCL 2 MG/2 ML VIAL ONE ×2 (23:02→23:13)
[2024-04-10] MEDS: NOREPINEPHRINE BITARTRATE/D5W 4 MG/250 ML KIT IV ONE (23:21)
[2024-04-10] MEDS: DOPAMINE/D5W 400 MG/250 ML BAG IV SCH (23:40)
[2024-04-10] MEDS: NA CHLORIDE 0.9% 1,000 ML IV ONE (23:50)
[2024-04-11] MEDS: propofoL 1,000 MG/100 ML VIAL IV SCH
[2024-04-11] MEDS: NOREPINEPHRINE 4 MG in D5W 250 ML IV SCH
--- NOTE | 2024-04-11 00:01 | P.PN ---
Date of Service: 03/11/24 Rapid response called on patient around 2315 hours for altered mental status. Per bedside nurse, patient became altered shortly after receiving fentanyl, Xanax, and Zanaflex within the last few hours. I reported to the patient's bedside immediately. Upon arrival, the patient was alert, but not oriented. ABG and bedside blood glucose test was ordered. Blood glucose returned 128. On exam, the patient's lungs were clear bilaterally, had a pulse of 51 bpm, and all extremities were cool to touch. The patient was giving a dose of Narcan with minimal improvement. Unable to get blood pressure at bedside, and patient became more bradycardic. Decision was made to intubate patient, dopamine was given, and transfer initiated to take the patient to ICU on BiPAP. Once in ICU, the patient's blood pressure was 134/111, pulse of 110. Dopamine discontinued, and patient became warmer to touch in all extremities. IVF bolus ordered. Complete blood panel, ECG, CXR, and CT head ordered. Discussed with Dr. Mishra. Will continue to monitor patient. <Sharyn Vaca - Last Filed: 04/10/24 23:51> I was called by NICKI Vaca and discussed event and plan of care @~2335. Per report, patient was noted to become unresponsive this evening, shortly after receivign fentanyl. She was noted to have agonal breathing, sinus bradycardia and unable to obtain a blood pressure reading. She received narcan x2 with no significant improvement. ED physician responded to code blue and intubated patient, initiated pressors. Patient was transferred to ICU. At time of my discussion, patient with blood pressure reading > 110s/70s, intubated, with oxygen saturation 99%. Abdomen reportedly soft, non-distended Review of EMR notes she was restarted on several home medications that can contribute to change in mentation, however, these are all chronic medications that patient has been on for quite some time - xanax, zanaflex, inderal. unclear the exact etiology. at time of discussion, patient is in ICU and seems to be starting to stabilize. medication/polypharmacy vs cardiogenic vs septic shock stat CBC / CMP, trop, lactate, CXR, coags ordered. unclear, but CBC did not result at time of other labs however noted to have hypokaleimia, borderline hypoMg, hypocalcemia with significantly elevated troponin, EKG done during code with sinus rhythm, reportedly no ischemic changes Hgb throughout last 2 days has downtrended, however patient with significant hypovolemia, so suspect due to hemo-dilution. Staff and family reported no evidence of bleeding, no GI bleed LFT significantly increased appearance of shock physiology, unclear etiology. CBC still pending, coags pending discussed with NICKI vaca; unclear if troponin elevation is ACS vs shock at time of event, patient was reportedly have runs of afib vs vtach. If ACS concern, would need to anticoagulate with heparin drip; with risk of worsening liver function / shock physiology would increase risk of bleeding guarded prognosis at this time. repeat labs this morning ordered in ~3hrs for 0500. If stable for transfer, may need to initiate transfer to tertiary care center, given worsening liver function, shock. 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 <Sujit Mishra - Last Filed: 04/11/24 11:35>
[2024-04-11 00:30] LABS: Albumin 1.8 g/dL (3.4-5.0); Albumin/Globulin Ratio 0.7 (1.1-1.8); Anion Gap 12.7 mEq/L (5.0-15.0); Bilirubin Direct 0.3 mg/dL (0-0.2); Bilirubin Indirect, Calculated 0.6 mg/dL (0.2-0.8); Bilirubin Total 0.9 mg/dL (0.2-1.0); Globulin 2.6 g/dL (2.3-3.5); Magnesium 1.7 mg/dL (1.6-2.4); Potassium 2.7 mEq/L (3.5-5.1); Protein, Total 4.4 g/dL (6.4-8.2)
[2024-04-11 00:32] LABS: Troponin High Sensitivity 5859.9 pg/mL (<58.9)
[2024-04-11 01:17] LABS: Blood Gas Oxyhemoglobin 96.7 % (94-97); Blood O2 Saturation 98.3 % (92-98.5)
[2024-04-11 01:18] LABS: Arterial Blood Carboxyhemoglob 0.2 % (0-1.5); Blood Gas THB 9.5 g/dl (12-18)
[2024-04-11 01:21] LABS: Absolute Eosinophils 0.1 K/uL (0-0.5); Absolute Lymphocytes (CBC) 0.7 K/uL (0.7-4.9); Absolute Monocytes 0.4 K/uL (0.1-1.3); Absolute Neutrophil 6.9 K/uL (1.8-8.0); Basophils % 0.2 % (0-1.3); Eosinophils % 1.7 % (0-4.4); Hematocrit 23.2 % (36.0-45.0); Hemoglobin 7.6 g/dL (12.0-15.0); Lymphocytes % 8.3 % (15.3-44.8); MCH 32.7 pg (27.0-35.0); MCHC 32.7 g/dL (32.0-36.0); MCV 100.2 fL (80-100); MPV 9.7 fL (7.6-11.3); Monocytes % 4.4 % (3.3-12.3); Neutrophils % 85.4 % (41.7-73.7); Nucleated Red Blood Cells % 0.1 % (0-0); Platelets 142 thou/uL (152-406); RBC Red Blood Cell Count 2.32 M/uL (3.86-4.86); Red Cell Distribution Width 13.3 % (12.1-15.2)
[2024-04-11] MEDS ORDERED: POTASSIUM CL 40 MEQ in NA CHLORIDE 0.9% 500 ML IV SCH (02:00)
[2024-04-11] MEDS: CALCIUM GLUCONATE 1 GM IVPB 1 GM/50 ML BAG IV ONE (02:08)
[2024-04-11] MEDS: Magnesium Sulfate 2gm IVPB 2 G/50 ML BAG IV ONE (02:11)
[2024-04-11] MEDS: KCL 20 MEQ/100 mL IVPB 20 MEQ/100 ML BAG IV SCH (02:15)
[2024-04-11] MEDS: HEPARIN/D5W 25,000 UNIT/500 ML BAG IV SCH (02:44)
[2024-04-11 02:50] LABS: Band Neutrophils 46 % (0-1); Differential Total Cells Count 100; Lymphocytes 8 % (15-42); Metamyelocytes 3 % (0-0); Monocytes 1 % (0-10); Reactive Lymphocytes 3 %; Segmented Neutrophils 39 % (40-80)
[2024-04-11 02:51] LABS: Blood Morphology Comment NOT SEEN (NOT SEEN); Platelet Estimate ADEQ; Toxic Granulation 1+
[2024-04-11] MEDS: NOREPINEPHRINE BITARTRATE/D5W 4 MG/250 ML KIT IV ONE (04:44)
[2024-04-11 05:06] LABS: Absolute Eosinophils 0.1 K/uL (0-0.5); Absolute Lymphocytes (CBC) 1.1 K/uL (0.7-4.9); Absolute Monocytes 0.2 K/uL (0.1-1.3); Absolute Neutrophil 8.3 K/uL (1.8-8.0); Basophils % 0.3 % (0-1.3); Eosinophils % 1.3 % (0-4.4); Hematocrit 25.5 % (36.0-45.0); Hemoglobin 8.7 g/dL (12.0-15.0); Lymphocytes % 11.3 % (15.3-44.8); MCV 96.9 fL (80-100); MPV 8.9 fL (7.6-11.3); Monocytes % 2.2 % (3.3-12.3); Nucleated Red Blood Cells % 0.3 % (0-0); Platelets 180 thou/uL (152-406); RBC Red Blood Cell Count 2.63 M/uL (3.86-4.86); Red Cell Distribution Width 13.5 % (12.1-15.2)
[2024-04-11 05:07] LABS: Neutrophils % 84.9 % (41.7-73.7)
[2024-04-11 05:10] LABS: PT Prothrombin Time 20.8 SECONDS (9.4-12.5); PTT, Activated Partial Thromb 85.7 SECONDS (24.3-36.9); Protime INR 1.89
--- NOTE | 2024-04-11 05:22 | RAD REPORT ---
JAYME OF STUDY: 04/10/2024 11:42 PM SPA MANAGER/ESTHETICIAN REASON FOR EXAM: post intubation COMPARISON: April 09, 2024 at 3:42 AM FINDINGS: AP view of the chest was obtained, chest 1 view. Lungs: The lungs are slightly underinflated. Interstitial and hazy airspace opacities are noted. Ri ght arm PICC is unchanged. There is been interval placement of an endotracheal tube with its tip 3.1 cm above the amelia. Pleura: No pneumothorax. There is no pleural effusion. Heart and Mediastinum: Normal cardiomediastinal silhouette and great vessels.. Cardiac silhouette i s prominent and stable. Bones: No acute bony abnormality.. IMPRESSION: 1. Endotracheal tube with its tip 3.1 cm above the amelia. 2. Underinflated lungs with bilateral interstitial and hazy airspace opacities. Electronically signed by: Mateus Sarah MD 04/11/2024 01:13 AM SPA MANAGER/ESTHETICIAN RP Due to temporary technical issues with the PACS/[employer] reporting system, reports are being jael d by the in-house radiologist without review as a courtesy to ensure prompt reporting the interpreting radiologist is fully responsible for the content of the report. Transcribed Date/Time: 04/11/2024 5:22 AM
[2024-04-11 05:26] LABS: Albumin 2.1 g/dL (3.4-5.0); Albumin/Globulin Ratio 0.7 (1.1-1.8); Anion Gap 8.8 mEq/L (5.0-15.0); Bilirubin Direct 0.4 mg/dL (0-0.2); Bilirubin Indirect, Calculated 0.2 mg/dL (0.2-0.8); Bilirubin Total 0.6 mg/dL (0.2-1.0); Magnesium 2.6 mg/dL (1.6-2.4); Potassium 3.8 mEq/L (3.5-5.1); Protein, Total 5.1 g/dL (6.4-8.2)
[2024-04-11 05:27] LABS: Phosphorus 1.3 mg/dL (2.5-4.9)
[2024-04-11] MEDS: DIVALPROEX DR 500MG TAB PO SCH (07:35)
--- NOTE | 2024-04-11 07:47 | RAD REPORT ---
EXAM: CT brain without contrast HISTORY: altered mental status COMPARISON: 10/26/2013 TECHNIQUE: Multiple contiguous axial images were obtained and a CT of the brain without contrast. Sag ittal and coronal reformats were performed. One or more of the following dose reduction techniques were used: Automated exposure control, adjust ment of the mA and/or kV according to patient size, and/or iterative reconstruction. FINDINGS: No evidence of hydrocephalus, intracranial hemorrhage, or extra-axial fluid collection. The brain is normal in morphology. No evidence of midline shift or areas of brain edema. The calvarium is intact. The visualized paranasal sinuses and mastoid air cells are essentially clear . IMPRESSION: No evidence of acute intracranial abnormality.
[2024-04-11] MEDS ORDERED: NOREPINEPHRINE 16 MG in D5W 250 ML IV SCH (09:00)
[2024-04-11] MEDS: POTASSIUM PHOS IN 0.9 % NACL 15 MMOL/250 ML BAG IV ONE (09:32)
[2024-04-11] MEDS: DOPAMINE HCL IN DEXTROSE 5 % 400 MG/250 ML KIT IV SCH (09:35)
[2024-04-11] MEDS: NOREPINEPHRINE 16 MG in Dextrose 5%-Water 500 ML IV SCH (09:48)
[2024-04-11] MEDS: DEXTROSE 5% IV SCH (11:40)
[2024-04-11] MEDS: WATER IV SCH (11:40)
[2024-04-11] MEDS: NOREPINEPHRINE IV SCH (11:40)
--- NOTE | 2024-04-11 13:39 | P.PN ---
Subjective Date of Service: 04/11/24 Chief Complaint: Severe sepsis 2/2 colitis Patient reportedly had an episode of agonal breathing, bradycardia, and unresponsive. No reported pulseless activity. Patient was given Narcan and then intubated in the ICU. Patient reported to have developed bradycardia with heart rate down to 40s, followed by sinus tachycardia.. Patient seen and examined this morning, noted to be profoundly unresponsive, propofol drip was stopped 20 minutes before my examination this morning. Initially no corneal reflex or gag reflex and no pupillary response to light. Patient reexamined later in the afternoon and noted she is now withdrawing to pain, spontaneous shoulder movement with tactile stimulus, responses more brisk on the right compared to the left. Blood pressure was fluctuating with systolic ranging from 45 to 120 on maximum drip Levophed. Heart rate up to 130s. Physical Examination - Vital Signs Temperature: 97.7 F Blood Pressure: 124/61 Pulse: 138 Respirations: 36 Pulse Ox (%): 95 - Studies Microbiology Data (last 24 hrs): 04/08/24 14:04 Clean Catch Urine [place] Count - Final BETWEEN 10,000 & 100,000 CFU/ML 04/08/24 14:04 Clean Catch Urine - Final MIXED DEMETRIS. Assessment And Plan - Plan Physical examination General: Unresponsive on mechanical ventilation HEENT: Conjunctiva not pale, anicteric sclera, pupils equal and reactive to light. Neck: Supple, no elevated JVD Heart: Heart sounds 1 and 2 normal, regular rhythm, tachycardia, no pedal edema Lungs: Bilateral upper airway transmitted sounds, adequate breath sounds bilaterally. Abdomen: Soft, nondistended, nontender, normal bowel sounds. Extremities: No tenderness, no deformity Skin: Normal skin turgor, no rash, no nodules or ulcers. Neuro: No facial deviation, withdraws to pain, however response is more brisk on the right compared to the left Psychiatry: Unresponsive. Assessment and Plan Diagnosis Acute respiratory failure with hypoxia Hypovolemic shock Cardiogenic shock Severe sepsis 2/2 Colitis Ischemic hepatitis NSTEMI Acute kidney injury secondary to vomiting and dehydration Colitis secondary to food poisoning and constipation History of migraine Hypertension Assessment and Plan Cardiogenic shock Hypovolemic shock NSTEMI Troponin significantly elevated. Associated profound hypotension Unresponsiveness. Give IV NS boluses Patient is currently on Levophed and phenylephrine. Wean off pressors as needed. Heparin drip Echocardiogram done, results to be read by cardiology Cardiology Dr. Wagoner input very much appreciated. Patient may need cardiac catheterization once she is clinically stable, and ideally off pressors. Cardiology is following. Acute metabolic encephalopathy Acute respiratory failure with hypoxia Patient now withdraws to pain but response is brisk on the right compared to the left. Differential diagnosis for AMS: Acute CVA, polypharmacy, anoxic encephalopathy given profound hypotension. Keep intubated and on mechanical ventilation. Neurochecks. Heparin drip Rectal aspirin MRI once clinically stable. Severe sepsis 2/2 Colitis Acute metabolic acidosis. Acute kidney injury secondary to vomiting and dehydration Sepsis criteria lactic acid 4.2, HR 102, BP 85/56, Resp 31 Status post initial multiple IV boluses WBC 13.6, Bicarb 17, lactic acid 1.4, BUN/creatinine 24/1.17, GFR 55, bands 36, neutrophils 87.4 Repeat lactic acid 1.4 Patient treated Flagyl and Cipro IV and then changed to zosyn Blood cultures: No growth to date. Colitis secondary to food poisoning and constipation Flagyl and Cipro IV Status post Soapsud enema x 1, Dulcolax twice daily x 2 doses. Patient has multiple bowel movements last night Dr. Hoffman evaluated patient-no surgical intervention. History of migraine Reports Depakote home medication Patient is also on propranolol She is currently n.p.o. Oral medications on hold. Hypertension Propranolol is on hold. DVT PPx: On heparin drip. Full code
[2024-04-11] MEDS: NA CHLORIDE 0.9% 1,000 ML IV ONE ×2 (14:16→19:45)
[2024-04-11] MEDS: D5 0.9 NS 1,000 ML IV SCH (14:16)
[2024-04-11] MEDS ORDERED: ETOMIDATE 20 MG/10 ML VIAL IV ONE (15:17)
[2024-04-11] MEDS ORDERED: D5W 1,000 ML with NA BICARB 8.4% 100 MEQ IV SCH (15:30)
[2024-04-11] MEDS: ASPIRIN 300 MG/SUPP PR SCH (16:40)
[2024-04-11 20:11] VITALS: TEMP 97.2
[2024-04-11 20:40] VITALS: O2SAT 100
[2024-04-11 20:55] VITALS: BP 94/59
[2024-04-11] MEDS ORDERED: AMITRIPTYLINE 50 MG TAB PO SCH (21:00)
--- NOTE | 2024-04-14 13:43 | EKG ---
Test Date: 2024-04-11 Test Time: 16:57:50 Machine Paint Mixer: GABRIEL MEASUREMENT RESULTS: Intervals: Rate: 125 HI: 134 QRSD: 98 QT: 314 QTc: 453 [place]: P: 70 HI: 134 QRS: 99 T: -10 INTERPRETIVE STATEMENTS: Sinus tachycardia Rightward axis Cannot rule out Anterior infarct, age undetermined T wave abnormality, consider inferior ischemia Abnormal ECG Compared to ECG 04/11/2024 00:02:01 Myocardial infarct finding now present T-wave abnormality now present Possible ischemia now present ST (T wave) deviation no longer present Electronically Signed On 04-14-24 13:37:45 RIVET FLUNKY by Leonard Wagoner
--- NOTE | 2024-04-14 13:46 | EKG ---
Test Date: 2024-04-11 Test Time: 00:02:01 Litigation Legal Assistant: ANTONETTE MEASUREMENT RESULTS: Intervals: Rate: 110 [place]: 140 QRSD: 114 QT: 348 QTc: 470 [place]: P: 68 [place]: 140 QRS: 105 T: 60 INTERPRETIVE STATEMENTS: Sinus tachycardia Rightward axis Nonspecific ST and T wave abnormality Abnormal ECG Compared to ECG 04/10/2024 01:24:14 Right-axis deviation now present ST (T wave) deviation now present Fusion complex(es) no longer present Left posterior fascicular block no longer present Myocardial infarct finding no longer present Electronically Signed On 04-14-24 13:38:24 VIDEO PRODUCTION SPECIALIST by Leonard Wagoner
--- NOTE | 2024-04-14 13:46 | EKG ---
Test Date: 2024-04-10 Test Time: 23:59:38 Borough Coordinator: GUADALUPE MEASUREMENT RESULTS: Intervals: Rate: 109 MA: 168 QRSD: 114 QT: 350 QTc: 471 [place]: P: 72 MA: 168 QRS: 107 T: 82 INTERPRETIVE STATEMENTS: Sinus tachycardia Rightward axis Nonspecific T wave abnormality Abnormal ECG Compared to ECG 04/10/2024 01:24:14 Right-axis deviation now present T-wave abnormality now present Fusion complex(es) no longer present Left posterior fascicular block no longer present Myocardial infarct finding no longer present Electronically Signed On 04-14-24 13:38:25 WOOD MOLDER by Leonard Wagoner
--- NOTE | 2024-04-14 13:48 | EKG ---
Test Date: 2024-04-10 Test Time: 01:24:14 Human Resources Team Member: MEASUREMENT RESULTS: Intervals: Rate: 138 [place]: 130 QRSD: 108 QT: 280 QTc: 424 [place]: P: 76 [place]: 130 QRS: 122 T: -23 INTERPRETIVE STATEMENTS: Sinus tachycardia with fusion complexes Left posterior fascicular block Possible Inferior infarct, age undetermined Anterior infarct, age undetermined Abnormal ECG Compared to ECG 04/08/2024 12:01:26 Fusion complex(es) now present Left posterior fascicular block now present ST (T wave) deviation no longer present Possible ischemia no longer present Myocardial infarct finding still present Electronically Signed On 04-14-24 13:39:08 AUTO DEALER by Leonard Wagoner
--- NOTE | 2024-04-17 10:40 | ECHO ---
HEIGHT: 5 ft 4 in WEIGHT: 178 lb 0.3 oz DATE OF STUDY: 04/11/[address]: Sharyn Rivera PA-C 2-DIMENSIONAL: YES M.MODE: YES DOPPLER: YES COLOR FLOW: YES TDS: NO PORTABLE: YES DEFINITY: NO BUBBLE STUDY: NO DIAGNOSIS: ELEVATED TROPONIN CARDIAC HISTORY: CATHERIZATION: NO SURGERY: NO PROSTHETIC VALVE: NO PACEMAKER: NO MEASUREMENTS (cm) DIASTOLIC (NORMALS) SYSTOLIC (NORMALS) IVSd 0.9 (0.6-1.2) LA Diam 2.7 (1.9-4.0) LVEF 40-45% LVIDd 4.6 (3.5-5.7) LVIDs 3.8 (2.0-3.5) %FS 18% LVPWd 1.0 (0.6-1.2) Ao Diam 2.2 (2.0-3.7) 2 DIMENSIONAL ASSESSMENT: RIGHT ATRIUM: NORMAL LEFT ATRIUM: NORMAL RIGHT VENTRICLE: NORMAL LEFT VENTRICLE: DEPRESSED TRICUSPID VALVE: MILD TRICUSPID REGURGITATION MITRAL VALVE: MILD MITRAL REGURGITATION PULMONIC VALVE: NORMAL AORTIC VALVE: NORMAL PERICARDIAL EFFUSION: NONE AORTIC ROOT: NORMAL LEFT VENTRICULAR WALL MOTION: ANTEROSEPTAL HYPOKINESIS. DOPPLER/COLOR FLOW: SEE BELOW. COMMENTS: 1. MILDLY DEPRESSED LEFT VENTRICULAR EJECTION FRACTION 40-45%. 2. ANTEROSEPTAL HYPOKINESIS. 3. MILD TRICUSPID REGURGITATION. 4. MILD MITRAL REGURGITATION. TECHNOLOGIST: CARIDAD KIM
== END 2024-04-11 22:05 | disposition short-term general hospital (02) | DRG 871 ==
LOC: ER 11:25 → ERHOLD 14:48 → 2ND 15:32 → 3RD-ICU 18:20 → 4TH 04-09 14:39 → 3RD-ICU 04-10 23:50
PROVIDERS: ADMIT Hospitalist; ATTEND Internal Medicine
PROC: 30233N1 Transfusion of Nonautologous Red Blood Cells into Peripheral Vein, Percutaneous Approach (ICD-10-PCS; 2024-04-08)
PROC: 0T9B70Z Drainage of Bladder with Drainage Device, Via Natural or Artificial Opening (ICD-10-PCS; 2024-04-08)
PROC: 4A033R1 Measurement of Arterial Saturation, Peripheral, Percutaneous Approach (ICD-10-PCS; 2024-04-09)
PROC: 02HV33Z Insertion of Infusion Device into Superior Vena Cava, Percutaneous Approach (ICD-10-PCS; 2024-04-09)
PROC: 5A1935Z Respiratory Ventilation, Less than 24 Consecutive Hours (ICD-10-PCS; principal; 2024-04-11)
PROC: 0BH17EZ Insertion of Endotracheal Airway into Trachea, Via Natural or Artificial Opening (ICD-10-PCS; 2024-04-11)
DX: A41.9 Sepsis, unspecified organism (principal); G93.41 Metabolic encephalopathy; I21.4 Non-ST elevation (NSTEMI) myocardial infarction; J96.01 Acute respiratory failure with hypoxia; R65.21 Severe sepsis with septic shock; R57.1 Hypovolemic shock; R57.0 Cardiogenic shock; K72.00 Acute and subacute hepatic failure without coma; A09 Infectious gastroenteritis and colitis, unspecified; N17.9 Acute kidney failure, unspecified; E87.21 Acute metabolic acidosis; E86.0 Dehydration; A05.9 Bacterial foodborne intoxication, unspecified; E87.6 Hypokalemia; E83.51 Hypocalcemia; K59.09 Other constipation; I10 Essential (primary) hypertension; Z78.1 Physical restraint status; Z79.899 Other long term (current) drug therapy; Z90.710 Acquired absence of both cervix and uterus
CPT/HCPCS: 36415; 36569; 36600; 70450; 71045; 74176; 76705; 80048; 80053; 80076; 80164; 81001; 82248; 82805; 82947; 83605; 83735; 84100; 84439; 84443; 84484; 85025; 85610; 85730; 86850; 86900; 86901; 86920; 87040; 87086; 87088; 93005; 93306; 94002; 94003; 99285; J0612; J0744; J1644; J2310; J2371; J2470; J2543; J2550; J2704; J3010; J3475; J3480; J7030; J7040; J7042; J7060